=== PATIENT | male | born 1980 | race Caucasian/White ===

== ENCOUNTER → 2016-10-25 | Outpatient (CLI) | payer OTHER ==
[~2016-10-25] MED LIST: ALBINS/ INH; CHN/1 PO; CIPR-255 PO; HYDR-5688 PO; NEOM1SUS21 OTL; PENI-82 PO; PRED20TA2 PO; SERT25TA PO; VNTHFA/IN INH
[2016-10-25 12:29] LABS: URIC ACID 5.2 mg/dl (2.6-7.2)
[2016-10-25 12:43] LABS: ESTIMATED AVERAGE GLUCOSE 123 mg/dl; HA1C FLAG Normal (Normal)
== END | disposition home or self-care (01) ==
LOC: C.LABBFT 10:27
PROVIDERS: ATTEND Internal Medicine
DX: R73.03 Prediabetes (principal); N52.9 Male erectile dysfunction, unspecified; M25.50 Pain in unspecified joint

== ENCOUNTER 2016-12-17 14:46 | Emergency (ER) | payer OTHER ==
[~2016-12-17] VITALS: Ht 175.3 cm; Wt 180.0 kg
[~2016-12-17 14:46] MED LIST changes: -ALBINS/ INH; -HYDR-5688 PO; -PENI-82 PO; -PRED20TA2 PO; -VNTHFA/IN INH
[2016-12-17 14:49] VITALS: TEMP 36.3; Ht 175.3 cm; Wt 180.0 kg
[2016-12-17] MEDS ORDERED: METHYLPREDNISOLONE 125 MG VIAL IV STA (14:57)
[2016-12-17] MEDS ORDERED: ALBUT/IPRATROP 3MG/0.5MG NEB 3 ML VIAL INH ONE (15:00)
[2016-12-17] MEDS ORDERED: ALBINS/ INH (15:08)
[2016-12-17 15:18] VITALS: PULSE 102; O2SAT 96
[2016-12-17 15:54] LABS: BASO % 0.2 %; BASO ABS # 0.03 K/uL (0-0.2); COMPLETE YES; EOS % 5.8 %; HEMATOCRIT 47.3 % (42-52); IG% 0.5 %; LYMPH % 19.5 %; LYMPH ABS # 2.38 K/uL (1.2-3.4); MEAN CELL VOLUME 93.3 fL (80-100); MEAN CORPUSCULAR HEMOGLOBIN 30.6 pg (25-34); MEAN CORPUSCULAR HGB CONC 32.8 g/dl (32-36); MEAN PLATELET VOLUME 10.7 fL (7.4-10.4); MONO % 8.2 %; NEUT % 65.8 %; PLATELET COUNT 235 K/uL (130-400); RED BLOOD COUNT 5.07 M/uL (4.7-6.1); WHITE BLOOD COUNT 12.18 K/uL (4.8-10.8)
[2016-12-17 16:05] LABS: PARTIAL THROMBOPLASTIN RATIO 1.1; PROTHROMBIN TIME (PATIENT) 10.7 SECONDS (9.0-12.0)
[2016-12-17 16:18] LABS: BUN/CREATININE RATIO 17.2 (10-20); CALCIUM 9.6 mg/dl (8.5-10.1); CREATININE 0.92 mg/dl (0.60-1.40)
--- NOTE | 2016-12-17 16:39 | DIAGNOSTIC IMAGING REPORT ---
CHEST 2 VIEWS ROUTINE CLINICAL HISTORY: sob dyspnea COMPARISON STUDY: 10/28/2015 FINDINGS: The bones soft tissues and hemidiaphragms are normal. The cardiomediastinal silhouette is normal. The lungs are clear. The pulmonary vasculature is normal. IMPRESSION: Negative chest. Electronically signed by: Tae Godfrey M.D. 12/17/2016 4:38 PM Dictated Date/Time: 12/17/2016 4:37 PM
[2016-12-17 16:46] VITALS: BP 152/71; PULSE 87; O2SAT 97
[2016-12-17] MEDS ORDERED: VNTHFA/IN INH (17:13)
[2016-12-17] MEDS ORDERED: PRED20TA2 PO (17:13)
--- NOTE | 2016-12-17 17:13 | EMERGENCY ROOM VISIT NOTE ---
History First contact with patient: 14:53 Chief Complaint: RESPIRATORY PROBLEMS Stated Complaint: DIFFICULTY BREATHING History of Present Illness The patient is a 36 year old male who presents to the Emergency Room with complaints of shortness of breath. The patient states that he is always short of breath but has increased shortness breath over the past 2 days. The patient states it is at rest as well as with exercise. The patient denies any associated chest pain, arm pain or jaw pain. The patient denies any diaphoresis , nausea or vomiting. The patient does have a history of asthma in the past but currently does not have any inhalers. He also has a history of seasonal allergies which she states he has been using Flonase without any relief of head congestion. The patient is a smoker. The patient denies any recent travel or surgery. The patient denies any recent leg pain. Review of Systems 10 system review was performed and was negative unless stated otherwise history of present illness. Past Medical/Surgical History Medical Problems: (1) Arm paresthesia, right (2) Asthma, Unspecified (3) Dizziness (4) Lumbar strain (5) Palpitations (6) Radiculopathy (7) Scalp cyst (8) Vertigo Social History Smoking Status: Current Every Day Smoker Marital Status: in relationship Occupation Status: employed Current/Historical Medications Scheduled PRN Albuterol Sulf (Proventil 0.083% 2.5MG/3ML), 2.5 MG INH QID PRN for SOB/Wheezing Allergies Coded Allergies: No Known Allergies (Unverified , 03/31/16) Physical Exam Vital Signs Date Time Temp Pulse Resp B/P Pulse Ox O2 Delivery O2 Flow Rate FiO2 12/17/16 16:46 87 16 152/71 97 Room Air 12/17/16 15:18 102 18 96 Room Air 12/17/16 15:17 99 Room Air 12/17/16 14:49 36.3 98 20 154/100 95 Room Air Physical Exam PHYSICAL EXAM: Vital Signs were reviewed: Temperature 36.6, blood pressure 154/ 100, pulse 98, respiratory rate 20 Reviewed Nurse's notes and agree. Oxygen saturation is 95 % on room air which is normal . GENERAL: Morbidly obese 36- year-old white male appears in mild respiratory distress. MENTAL STATUS: Alert, oriented, coherent. EARS: Canals clear. TMs good light reflex, no erythema or fluid level noted. NOSE: Nasal mucosa with moderate erythema engorgement. PHARYNX: Moderate erythema, no edema noted. No exudate noted. Airway is adequate. NECK: Supple, non-tender. No lymphadenopathy noted. LUNGS: Patient has poor ordered. An air exchange bilaterally with both inspiratory and expiratory wheezing. No rales or rhonchi noted. CARDIAC: Tachycardia, normal rhythm without murmur. LOWER EXTREMITIES: No cyanosis or edema noted. Calves are nontender. SKIN: No rashes noted. Medical Decision & Procedures ER Provider Diagnostic Interpretation: CHEST 2 VIEWS ROUTINE CLINICAL HISTORY: sob dyspnea COMPARISON STUDY: 10/28/2015 FINDINGS: The bones soft tissues and hemidiaphragms are normal. The cardiomediastinal silhouette is normal. The lungs are clear. The pulmonary vasculature is normal. IMPRESSION: Negative chest. Electronically signed by: Tae Godfrey M.D. 12/17/2016 4:38 PM Laboratory Results 12/17/16 15:40 Red Blood Count 5.07, Mean Corpuscular Volume 93.3, Mean Corpuscular Hemoglobin 30.6, Mean Corpuscular Hemoglobin Concent 32.8, Mean Platelet Volume 10.7, Neutrophils (%) (Auto) 65.8, Lymphocytes (%) (Auto) 19.5, Monocytes (%) (Auto) 8.2, Eosinophils (%) (Auto) 5.8, Basophils (%) (Auto) 0.2, Neutrophils # (Auto) 8.00, Lymphocytes # (Auto) 2.38, Monocytes # (Auto) 1.00, Eosinophils # (Auto) 0.71, Basophils # (Auto) 0.03 12/17/16 15:40 Test 12/17/16 15:40 12/17/16 15:46 White Blood Count 12.18 K/uL (4.8-10.8) Red Blood Count 5.07 M/uL (4.7-6.1) Hemoglobin 15.5 g/dL (14.0-18.0) Hematocrit 47.3 % (42-52) Mean Corpuscular Volume 93.3 fL (80-100) Mean Corpuscular Hemoglobin 30.6 pg (25-34) Mean Corpuscular Hemoglobin Concent 32.8 g/dl (32-36) Platelet Count 235 K/uL (130-400) Mean Platelet Volume 10.7 fL (7.4-10.4) Neutrophils (%) (Auto) 65.8 % Lymphocytes (%) (Auto) 19.5 % Monocytes (%) (Auto) 8.2 % Eosinophils (%) (Auto) 5.8 % Basophils (%) (Auto) 0.2 % Neutrophils # (Auto) 8.00 K/uL (1.4-6.5) Lymphocytes # (Auto) 2.38 K/uL (1.2-3.4) Monocytes # (Auto) 1.00 K/uL (0.11-0.59) Eosinophils # (Auto) 0.71 K/uL (0-0.5) Basophils # (Auto) 0.03 K/uL (0-0.2) RDW Standard Deviation 48.4 fL (36.4-46.3) RDW Coefficient of Variation 14.4 % (11.5-14.5) Immature Granulocyte % (Auto) 0.5 % Immature Granulocyte # (Auto) 0.06 K/uL (0.00-0.02) Prothrombin Time 10.7 SECONDS (9.0-12.0) Prothromb Time International Ratio 1.0 (0.9-1.1) Activated Partial Thromboplast Time 29.0 SECONDS (21.0-31.0) Partial Thromboplastin Ratio 1.1 Anion Gap 6.0 mmol/L (3-11) Est Creatinine Clear Calc Drug Dose 177.9 ml/min Estimated GFR () 122.7 Estimated GFR (Non- 105.9 BUN/Creatinine Ratio 17.2 (10-20) Calcium Level 9.6 mg/dl (8.5-10.1) Bedside D-Dimer 334 ng/mlFEU (0-450) Medications Administered Medications (Trade) Dose Ordered Sig/Shi Route Start Time Stop Time Status Last Admin Dose Admin Albuterol/ Ipratropium (Duoneb) 12 ml ONE ONCE INH 12/17/16 15:00 12/17/16 15:01 DC 12/17/16 15:18 12 ML Methylprednisolone Sodium Succinate (Solu-Medrol IV) 125 mg NOW STAT IV 12/17/16 14:57 12/17/16 14:59 DC 12/17/16 15:51 125 MG ED Course The patient was evaluated. The patient's EMR and medication list were reviewed. IV access was obtained. CBC and differential, coags, renal profile, pointing care d-dimer was ordered. Chest x-ray was ordered and interpreted by the radiologist and myself as above without any acute findings. The patient was given Solu-Medrol 125 mg IV. One hour DuoNeb was given to the patient. Labs are reviewed and were unremarkable. D-dimer was within normal limits. The patient was reevaluated and did not appear in any respiratory distress. On reexamination there was no wheezing noted bilaterally. Good air exchange bilaterally. The patient was discharged home in stable condition. Medical Decision Differential diagnosis include pneumonia, asthma exacerbation, URI, anxiety, PE Impression Primary Impression: Asthma exacerbation Departure Information Dispostion Home / Self-Care Condition GOOD Prescriptions Prednisone (Prednisone Tab) 20 Mg Tab 3 TAB PO DAILY for 3 Days, #9 TAB FOR 4 DAYS Prov: Kia Godfrey PA-C 12/17/16 Albuterol Hfa (VENTOLIN HFA) 200 Puffs/83987 Mcg Aers 2 PUFFS INH QID, #1 INHALER Prov: Kia Godfrey PA-C 12/17/16 Referrals Jamarcus Cramer M.D. (PCP) Forms HOME CARE DOCUMENTATION FORM, IMPORTANT VISIT INFORMATION, WORK / SCHOOL INSTRUCTIONS Patient Instructions Asthma - [facility], [facility] Additional Instructions Use either the Ventolin inhaler or your nebulizer every 4 hours as needed for chest tightness. Take prednisone daily as prescribed. Follow-up with Dr. Cramer in 2 days or reevaluation. If symptoms worsen in the interim, return to ER.
== END 2016-12-17 17:18 | disposition home or self-care (01) ==
LOC: C.EDB 14:47 → C.EDC 17:18
DX: J45.901 Unspecified asthma with (acute) exacerbation (principal); J30.2 Other seasonal allergic rhinitis; F17.200 Nicotine dependence, unspecified, uncomplicated

== ENCOUNTER → 2016-12-22 | Outpatient (CLI) | payer OTHER ==
[~2016-12-22] MED LIST changes: +ALBINS/ INH; -CHN/1 PO; -CIPR-255 PO; +HYDR-5688 PO; -NEOM1SUS21 OTL; +PENI-82 PO; -SERT25TA PO; +VNTHFA/IN INH
[2016-12-22 11:22] LABS: HEMATOCRIT 43.8 % (42-52); MEAN CELL VOLUME 93.8 fL (80-100); MEAN CORPUSCULAR HEMOGLOBIN 31.9 pg (25-34); MEAN PLATELET VOLUME 11.3 fL (7.4-10.4); PLATELET COUNT 181 K/uL (130-400); RED BLOOD COUNT 4.67 M/uL (4.7-6.1); WHITE BLOOD COUNT 8.14 K/uL (4.8-10.8)
[2016-12-22 11:57] LABS: ALT/SGPT 45 U/L (12-78); AST/SGOT 20 U/L (15-37); BLOOD UREA NITROGEN 13 mg/dl (7-18); BUN/CREATININE RATIO 16.4 (10-20); CARBON DIOXIDE 29 mmol/L (21-32); CHLORIDE 110 mmol/L (98-107); CREATININE 0.77 mg/dl (0.60-1.40); GLUCOSE 93 mg/dl (70-99); POTASSIUM 3.9 mmol/L (3.5-5.1); SODIUM 145 mmol/L (136-145); TRIGLYCERIDES 180 mg/dl (0-150); VERY LOW DENSITY LIPOPROT CALC 36 mg/dl
[2016-12-22 12:04] LABS: ALB/GLOB RATIO 1.1 (0.9-2); ALKALINE PHOSPHATASE 104 U/L (45-117); CHOLESTEROL 133 mg/dl (0-200); CHOLESTEROL/HDL RATIO 2.3; HDL CHOLESTEROL 59 mg/dl; LDL CHOLESTEROL CALCULATED 38 mg/dl
[2016-12-22 12:05] LABS: PROLACTIN 8.77 ng/mL
== END | disposition home or self-care (01) ==
LOC: C.LAB 10:42
PROVIDERS: ATTEND Internal Medicine Endocrinology, Diabetes & Metabolism
DX: E66.01 Morbid (severe) obesity due to excess calories (principal); R53.83 Other fatigue; N52.9 Male erectile dysfunction, unspecified; E29.1 Testicular hypofunction; R73.03 Prediabetes

== ENCOUNTER 2017-01-14 10:26 | Emergency (ER) | payer OTHER ==
[~2017-01-14] VITALS: Ht 175.3 cm; Wt 178.9 kg
[~2017-01-14 10:26] MED LIST changes: -HYDR-5688 PO; -PENI-82 PO
[2017-01-14 10:36] VITALS: BP 184/84; PULSE 100; TEMP 37.4; O2SAT 94; Ht 175.3 cm; Wt 178.9 kg
[2017-01-14] MEDS ORDERED: HYDROCODONE/ACETAMOPHEN 5/325MG TAB PO STA (10:52)
[2017-01-14] MEDS ORDERED: PENI-82 PO (10:54)
[2017-01-14] MEDS ORDERED: HYDR-5688 PO (10:54)
--- NOTE | 2017-01-14 10:58 | EMERGENCY ROOM VISIT NOTE ---
ED Visit Note First contact with patient: 10:39 CHIEF COMPLAINT: "Lower left jaw pain/metallic taste in mouth". HISTORY OF PRESENT ILLNESS: This 36-year-old male patient presented to the emergency department via private vehicle accompanied by female with left lower jaw/gum line pain that radiates posteriorly in his mouth also to the left posterior upper dentition. There is also associated metallic taste in the mouth. Patient does not know of any injury to the area. He states he noticed yesterday while at rest. No history of tooth problems. He denies any fevers, chills, chest pain, shortness of breath. REVIEW OF SYSTEMS: A 6 system review of systems was completed with positives and pertinent negatives listed in the HPI. ALLERGIES: No known allergies MEDICATIONS: As noted below PMH: Asthma, orchitis SOCIAL HISTORY: Patient lives at home. PHYSICAL EXAM: Vitals are noted on the nurse's note and reviewed by myself. Vital signs stable. Temperature 37.4C orally. GENERAL: 36-year-old male, in no acute distress, nondiaphoretic, well-developed well-nourished. Mouth: The dentition is overall in good repair. There is tenderness to palpation overlying the left inferior gumline along the left jaw extending posteriorly and up into the left upper posterior dentition. This is reproducible with palpation. No drainage noted. The remainder of the pharynx and tonsils are without erythema, edema, or exudate. The airway is patent. There is no facial swelling, cervical or submandibular lymphadenopathy. The patient appears uncomfortable and in pain. The patient has overall fair dental hygiene. EARS: External auditory canals clear, tympanic membranes pearly elliott without erythema or effusion bilaterally. ED COURSE: Patient was seen and evaluated as above. He presents to us today with sudden onset pain near his dentition. This is reproducible with palpation overlying the gumline. I suspect he either has some nerve irritation this area or a tooth infection beginning. I do not suspect DC, or any other emergent process. I do not suspect Sánchez's angina. He is otherwise healthy in nature. He was educated about management of his blood pressure as it was elevated today. He is to follow-up with his family doctor for such findings. He'll be prescribed Pen-Vee K and Fruitland for his pain. He was provided one tablet here. He was educated upon management today's findings, educated upon worrisome symptoms which to return, was provided with dentist's phone numbers any areas of which to follow-up with, and was discharged home in good condition. He certainly is to return with any new/concerning symptoms. In the evaluation and treatment of this patient, the following differential diagnoses were considered: Periapical Abscess, Osteonecrosis of the Jaw, Dental Fracture, Dental Caries, Sánchez's Angina, Vincent's Angina, Facial Cellulitis. In the treatment of this patient controlled medication was utilized and therefore the [facility] [address] [facility], Prescription Drug Monitoring Program website was utilized to look up this patient. No concerns were identified that would prohibit or alter my treatment decision. Problem List Medical Problems: (1) Arm paresthesia, right Status: Resolved (2) Asthma, Unspecified Status: Chronic (3) Dizziness Status: Resolved (4) Lumbar strain Status: Resolved (5) Palpitations Status: Resolved (6) Radiculopathy Status: Chronic (7) Scalp cyst Status: Chronic (8) Vertigo Status: Chronic Current/Historical Medications Scheduled Albuterol Hfa (Ventolin Hfa), 2 PUFFS INH QID Penicillin V Potassium (Veetids), 500 MG PO QID Scheduled PRN Albuterol Sulf (Proventil 0.083% 2.5MG/3ML), 2.5 MG INH QID PRN for SOB/Wheezing Hydrocodone/Acetaminophen 5MG/325MG (Fruitland 5MG/325MG), 1-2 TABLET PO Q6 PRN for Pain Allergies Coded Allergies: No Known Allergies (Unverified , 03/31/16) Vital Signs Date Time Temp Pulse Resp B/P (MAP) Pulse Ox O2 Delivery O2 Flow Rate FiO2 01/14/17 10:36 37.4 100 22 184/84 94 Room Air Medications Administered Medications (Trade) Dose Ordered Sig/Shi Route Start Time Stop Time Status Last Admin Dose Admin Acetaminophen/ Hydrocodone Bitart (Fruitland 5/325 Tab) 1 tab NOW STAT PO 01/14/17 10:52 01/14/17 10:53 DC 01/14/17 11:03 1 TAB Departure Information Impression Primary Impression: Odontalgia Dispostion Home / Self-Care Condition GOOD Prescriptions Penicillin V Potassium (Veetids) 500 Mg Tab 500 MG PO QID, #40 TAB Prov: Jorge Camarena PA-C 01/14/17 Hydrocodone/Acetaminophen 5MG/325MG (Fruitland 5MG/325MG) Tab 1-2 TABLET PO Q6 Y for Pain, #20 TAB For Initial Treatment Prov: Jorge Camarena PA-C 01/14/17 Referrals Jamarcus Cramer M.D. (PCP) Patient Instructions My [facility] Additional Instructions You have been treated in the Emergency Department for Dental Pain. You have received pain medicine in the emergency department which impairs your ability to operate a vehicle. It is illegal for you to drive after receiving these medicines. You have been prescribed NORCO to be used for pain control. This is a narcotic medication. You cannot drive or consume alcohol while on this medicine. This medicine should only be used for pain that cannot be controlled with over-the- counter pain medicines. NO TYLENOL WITH THIS You were prescribed PenVK to be taken every 6 hours for 10 days. This is an antibiotic. All antibiotics have the potential to cause diarrhea. Stop this medication and contact a medical provider if you were to develop any significant adverse side effects including: wheezing, shortness of breath, passing out, vomiting, or a diffuse rash. Always take antibiotics as directed and COMPLETE the ENTIRE course regardless of the improvement of your symptoms. For pain control, you can use the following [id number] medicines (if >12 yo): - Regular strength (325mg/tab) Tylenol (acetaminophen) 2 tabs every 4-6 hours as needed. Do not exceed 12 tablets in a 24 hour period. Avoid taking more than 3 grams (3000 mg) of Tylenol per day. This includes any other sources of acetaminophen you may take on a regular basis. NOT WITH NORCO - Regular strength (200 mg/tab) Advil (ibuprofen) 1-2 tabs every 4-6 hours as needed. Do not exceed a dose of 3200 mg per day. Refrain from smoking cigarettes or using chewing tobacco until you have been evaluated by your dentist. Keeping beverages lukewarm and consuming soft foods can decrease your pain. Warm compresses over the affected area may offer some relief. You MUST seek evaluation of your dental pain by a dentist following your visit to the Emergency Department. The Emergency Department is not capable of treating dental issues long-term. You should call your dentist as soon as possible to make an appointment for evaluation of your dental pain. Return to the emergency department if you develop the following symptoms despite treatment course outlined above: fever, intractable pain, increased redness, swelling, or purulent discharge. Below are 2 doctors that accept Medicare/Medicaid. Dr. Kaylee Cornelius, DMD Oral & Maxillofacial Surgery | [address] [address] [address] Naveen Iverson, DMD [phone] and we are located at [address] [place] [address], [address], [place]. Please return to the emergency department with any new/concerning symptoms. Your blood pressure was elevated today 184/84. Please follow-up with your family doctor.
== END 2017-01-14 11:04 | disposition home or self-care (01) ==
LOC: C.EDB 10:27 → C.EDD 11:04
DX: K08.89 Other specified disorders of teeth and supporting structures (principal); J45.909 Unspecified asthma, uncomplicated; Z87.828 Personal history of other (healed) physical injury and trauma

== ENCOUNTER → 2017-07-16 | Outpatient (CLI) | payer OTHER ==
[~2017-07-16] VITALS: Ht 175.3 cm; Wt 211.7 kg
[~2017-07-16] MED LIST changes: +HYDR-5688 PO; +PENI-82 PO; -VNTHFA/IN INH
[2017-07-16 13:47] VITALS: BP 154/90; PULSE 89; Ht 175.3 cm; Wt 211.7 kg
== END | disposition home or self-care (01) ==
LOC: C.NEUR 12:55
PROVIDERS: ATTEND Internal Medicine Pulmonary Disease
DX: R06.83 Snoring (principal); R06.81 Apnea, not elsewhere classified; E66.01 Morbid (severe) obesity due to excess calories; Z68.44 Body mass index [BMI] 60.0-69.9, adult; R53.83 Other fatigue; F41.9 Anxiety disorder, unspecified; M25.50 Pain in unspecified joint; R51 Headache; R42 Dizziness and giddiness; R06.02 Shortness of breath; F17.210 Nicotine dependence, cigarettes, uncomplicated

== ENCOUNTER 2017-07-18 21:53 | Inpatient (IN) | payer OTHER ==
[~2017-07-18] VITALS: Ht 175.3 cm; Wt 210.1 kg
[~2017-07-18 21:53] MED LIST changes: -HYDR-5688 PO; -PENI-82 PO
[2017-07-18 22:23] LABS: BASO % 0.2 %; BASO ABS # 0.02 K/uL (0-0.2); COMPLETE YES; HEMATOCRIT 43.6 % (42-52); IG% 0.3 %; LYMPH % 22.7 %; LYMPH ABS # 2.42 K/uL (1.2-3.4); MEAN CORPUSCULAR HEMOGLOBIN 31.6 pg (25-34); MEAN CORPUSCULAR HGB CONC 33.9 g/dl (32-36); MEAN PLATELET VOLUME 10.8 fL (7.4-10.4); NEUT % 66.8 %; PLATELET COUNT 226 K/uL (130-400); RED BLOOD COUNT 4.69 M/uL (4.7-6.1); WHITE BLOOD COUNT 10.68 K/uL (4.8-10.8)
[2017-07-18 22:58] LABS: ALKALINE PHOSPHATASE 104 U/L (45-117); ALT/SGPT 48 U/L (12-78); AST/SGOT 30 U/L (15-37); BLOOD UREA NITROGEN 14 mg/dl (7-18); BUN/CREATININE RATIO 14.4 (10-20); CALCIUM 9.2 mg/dl (8.5-10.1); CARBON DIOXIDE 24 mmol/L (21-32); CHLORIDE 106 mmol/L (98-107); CREATININE 0.95 mg/dl (0.60-1.40); GLUCOSE 95 mg/dl (70-99); SODIUM 138 mmol/L (136-145)
--- NOTE | 2017-07-18 23:02 | DIAGNOSTIC IMAGING REPORT ---
CHEST ONE VIEW PORTABLE CLINICAL HISTORY: Chest pain. COMPARISON STUDY: Chest radiograph December 17, 2016. FINDINGS: This exam is significantly compromised due to body habitus. Apparent left lower lung opacity is likely artifactual. There is no evidence of pulmonary edema. Cardiomediastinal silhouette is stable. There is no pneumothorax or definite pleural effusion. IMPRESSION: Study compromised due to body habitus. Apparent left lower lung opacity is likely artifactual however pneumonia could appear similar. Electronically signed by: Nehemiah Abrams M.D. 07/18/2017 11:01 PM Dictated Date/Time: 07/18/2017 10:59 PM
[2017-07-18] MEDS ORDERED: OPTIRAY 320 IV PRN (23:15)
[2017-07-19] MEDS ORDERED: ALUMINUM/MAGNESIUM/SIMETH (MAALOX MAX) 30 ML UDC PO PRN (00:30)
[2017-07-19] MEDS ORDERED: MAGNESIUM HYDROXIDE SUSP 30 ML UDC PO PRN (00:30)
[2017-07-19] MEDS ORDERED: ALBUTEROL 0.083% NEBU SOLN 3 ML VIAL INH PRN (00:30)
[2017-07-19] MEDS ORDERED: ONDANSETRON INJ 2 MG/ML 2 ML VIAL IV PRN (00:30)
[2017-07-19] MEDS ORDERED: NITROGLYCERIN 0.4 MG SL PER TAB CHARGE SL PRN (00:30)
[2017-07-19] MEDS ORDERED: ACETAMINOPHEN 325 MG TAB PO PRN (00:30)
--- NOTE | 2017-07-19 00:32 | History and Physical ---
History & Physical Date & Time of Service: Jul 19, 2017 at 00:22 Chief Complaint: Heart Pounding, Slight Pain In Chest Primary Care Physician: Jamarcus Cramer M.D. History of Present Illness Source: patient Yordan Monsalve is a 37 year old morbidly obese male smoker who presented to the ED with chest pain that began around 2PM today. He reports he felt it intermittently over the next few hours, always in a spot over the L side of his chest, with associated numbness/decreased strength in his left hand. Nothing made the pain better or worse, it would just go away on its own. The pain was also associated with palpitations. The pain was described as sharp, and 6/10 severity. He currently does not have any pain. He reports he has smoked 1/2 pack per day for 15 years. He reports he is ready to quit today after this episode. He drinks about a 20 oz of soda daily. He works at [employer]. In the ED, he was found to have a positive D-Dimer, but CTA was completed and was negative for PE. His troponin was mildly elevated at 0.05. Past Medical/Surgical History Medical Problems: (1) Arm paresthesia, right Status: Resolved (2) Asthma, Unspecified Status: Chronic (3) Dizziness Status: Resolved (4) Lumbar strain Status: Resolved (5) Palpitations Status: Resolved (6) Radiculopathy Status: Chronic (7) Scalp cyst Status: Chronic (8) Vertigo Status: Chronic Family History Father has HTN, no history of DC or stroke. Mother healthy. No other 1st degree relatives with CAD. Social History Smoking Status: Current Every Day Smoker (1/2 ppd x 15 years) Smokeless Tobacco Use: No Alcohol Use: socially Drug Use: none Marital Status: in relationship Housing status: lives with family Occupational Status: employed Multi-Drug Resistant Organisms History of MDRO: No Allergies Coded Allergies: No Known Allergies (Unverified , 07/18/17) Home Medications Scheduled PRN Albuterol Sulf (Proventil 0.083% 2.5MG/3ML), 2.5 MG INH QID PRN for SOB/Wheezing Review of Systems See HPI for pertinent positives & negatives. A total of 10 systems reviewed and were otherwise negative. Physical Exam Vital Signs Date Time Temp Pulse Resp B/P (MAP) Pulse Ox O2 Delivery O2 Flow Rate FiO2 07/18/17 23:44 90 16 132/76 96 Room Air 07/18/17 22:38 96 07/18/17 22:28 98 Room Air 07/18/17 22:27 98 Room Air 07/18/17 22:27 98 Room Air 07/18/17 21:56 36.6 95 18 136/86 94 Room Air General Appearance: WD/WN, no apparent distress, + obese Head: normocephalic, atraumatic Eyes: normal inspection, PERRL ENT: hearing grossly normal Neck: supple, no JVD Respiratory/Chest: lungs clear, normal breath sounds, no respiratory distress Cardiovascular: regular rate, rhythm, no murmur, normal peripheral pulses Abdomen/GI: normal bowel sounds, non tender, soft Back: no CVA tenderness, no muscle spasm Extremities/Musculoskelatal: normal inspection, no calf tenderness, no pedal edema Neurologic/Psych: alert, normal mood/affect, normal reflexes, oriented x 3 Skin: no rash Diagnostics Laboratory Results Results Past 24 Hours Test 07/18/17 22:10 07/18/17 22:22 Range/Units White Blood Count 10.68 4.8-10.8 K/uL Red Blood Count 4.69 4.7-6.1 M/uL Hemoglobin 14.8 14.0-18.0 g/dL Hematocrit 43.6 42-52 % Mean Corpuscular Volume 93.0 80-100 fL Mean Corpuscular Hemoglobin 31.6 25-34 pg Mean Corpuscular Hemoglobin Concent 33.9 32-36 g/dl Platelet Count 226 130-400 K/uL Mean Platelet Volume 10.8 7.4-10.4 fL Neutrophils (%) (Auto) 66.8 % Lymphocytes (%) (Auto) 22.7 % Monocytes (%) (Auto) 8.0 % Eosinophils (%) (Auto) 2.0 % Basophils (%) (Auto) 0.2 % Neutrophils # (Auto) 7.15 1.4-6.5 K/uL Lymphocytes # (Auto) 2.42 1.2-3.4 K/uL Monocytes # (Auto) 0.85 0.11-0.59 K/uL Eosinophils # (Auto) 0.21 0-0.5 K/uL Basophils # (Auto) 0.02 0-0.2 K/uL RDW Standard Deviation 50.1 36.4-46.3 fL RDW Coefficient of Variation 14.8 11.5-14.5 % Immature Granulocyte % (Auto) 0.3 % Immature Granulocyte # (Auto) 0.03 0.00-0.02 K/uL Sodium Level 138 136-145 mmol/L Potassium Level 4.0 3.5-5.1 mmol/L Chloride Level 106 98-107 mmol/L Carbon Dioxide Level 24 21-32 mmol/L Anion Gap 8.0 3-11 mmol/L Blood Urea Nitrogen 14 7-18 mg/dl Creatinine 0.95 0.60-1.40 mg/dl Est Creatinine Clear Calc Drug Dose 179.6 ml/min Estimated GFR () 117.2 Estimated GFR (Non- 101.1 BUN/Creatinine Ratio 14.4 10-20 Random Glucose 95 70-99 mg/dl Calcium Level 9.2 8.5-10.1 mg/dl Magnesium Level 2.0 1.8-2.4 mg/dl Total Bilirubin 0.5 0.2-1 mg/dl Direct Bilirubin 0-0.2 mg/dl Aspartate Amino Transf (AST/SGOT) 30 15-37 U/L Alanine Aminotransferase (ALT/SGPT) 48 12-78 U/L Alkaline Phosphatase 104 45-117 U/L Total Protein 7.7 6.4-8.2 gm/dl Albumin 3.8 3.4-5.0 gm/dl Lipase 106 73-393 U/L Thyroid Stimulating Hormone (TSH) 2.540 0.300-4.500 uIu/ml Chemistry Specimen Hemolysis Bedside D-Dimer > 450 0-450 ng/mlFEU Bedside Troponin I 0.050 0-0.045 ng/ml Diagnostic Radiology CTA: Negative for PE CXR normal EKG Normal sinus rhythm Incomplete right bundle branch block Borderline ECG When compared with ECG of 18-JUL-2017 22:01, (unconfirmed) No significant change was found Impression Assessment and Plan 37 yo M with multiple risk factors - smoking, morbid obesity, prediabetes, male - who presents w/chest pain at 2am, w/normal EKG, troponin 0.05 about 10 hours after initiation of pain. Chest pain w/palpitations - Will trend troponin q6h - At this stage he is chest pain free, if recurs, will provide Nitro, morphine - Continue daily aspirin, will add a low dose beta elizabeth tomorrow - Will check lipids tomorrow AM - Discussed smoking cessation - reports he is ready today, as his fiancee was very unhappy about this situation - Cardiac monitoring Prediabetes - A1c 5.9% in 10/2016, will recheck tomorrow Asthma - Continue Albuterol PRN Morbid obesity - Would recommend outpatient referral to weight loss management if pt agrees VTE: Heparin SQ - will change to heparin drip if troponin increases Code status: Full Dispo: Tele Resident Physician Supervision Note: Pt evaluated independently. I discussed the case with the resident and agree with the findings and plan as documented in the note. Any exceptions or clarifications are listed here: 37 y/o M - morbidly obese smoker with metabolic syndrome, presenting with central CP - a marginal troponin elevation is present. OE AAO x 3 S1,2 R CTA ND, ND NO CC P: Pt is high risk and will be fully anticoagulated - ASA, statin and Bblocker to be provided. We will consult cardiology. He is assigned to telemetry - additional trop is pending Documented By: Jesus Tabor VTE Prophylaxis VTE Risk Assessment Done? Y/N: Yes Risk Level: Moderate Resident Tracking Resident Involvement: Resident Care Provided Care Provided: Adult Hospital Medicine
[2017-07-19 01:06] VITALS: BP 159/82; PULSE 83; TEMP 36.8; O2SAT 97; Ht 175.3 cm; Wt 210.1 kg
[2017-07-19 04:24] LABS: PROTHROMBIN TIME (PATIENT) 10.4 SECONDS (9.0-12.0)
[2017-07-19] MEDS ORDERED: HEPARIN 25,000 UNIT/500ML D5W 500 ML IV PRN (05:15)
--- NOTE | 2017-07-19 05:29 | EMERGENCY ROOM VISIT NOTE ---
History First contact with patient: 22:07 Chief Complaint: CARDIAC ASSESSMENT Stated Complaint: CHEST PAIN, PALPITATIONS Nursing Triage Summary: Pt states that around 1400 his heart started to race. Pt said that he started to have mid sternal stabbing chest pain that is intermittent. Pt also complains of numbness to right arm. Pt states that nothing makes the pain better. Pt denies any SOB, nausea, diaphoresis. Lungs are clear bilaterally thru bases. Pulse ox 98% RA History of Present Illness The patient is a 37 year old male who presents to the Emergency Room with complaints of chest pain with palpitations since 2 PM. Patient states occasionally he'll get numbness and tingling down the left arm. Chest pain last for about 5 minutes. Has happened a few times throughout the day. Occasional palpitations. No recent stress test or echo. No family history of heart disease. No prior heart disease. Patient denies dyspnea, abdominal pain , leg pain, recent travel. He does smoke half pack a day. No excessive caffeine or alcohol. Review of Systems See HPI for pertinent positives & negatives. A total of 10 systems reviewed and were otherwise negative. Past Medical/Surgical History Medical Problems: (1) Arm paresthesia, right (2) Asthma, Unspecified (3) Chest pain (4) Dizziness (5) Lumbar strain (6) Palpitations (7) Palpitations (8) Radiculopathy (9) Scalp cyst (10) Vertigo Social History Smoking Status: Current Every Day Smoker Smokeless Tobacco Use: No Drug Use: none Marital Status: in relationship Occupation Status: employed Current/Historical Medications Scheduled PRN Albuterol Sulf (Proventil 0.083% 2.5MG/3ML), 2.5 MG INH QID PRN for SOB/Wheezing Physical Exam Vital Signs Date Time Temp Pulse Resp B/P (MAP) Pulse Ox O2 Delivery O2 Flow Rate FiO2 07/18/17 23:44 90 16 132/76 96 Room Air 07/18/17 22:38 96 07/18/17 22:28 98 Room Air 07/18/17 22:27 98 Room Air 07/18/17 22:27 98 Room Air 07/18/17 21:56 36.6 95 18 136/86 94 Room Air Physical Exam VITALS: Vitals are noted on the nurse's note and reviewed by myself. Vital signs stable. GENERAL: Pleasant male, in no acute distress, nondiaphoretic, well-developed well-nourished. SKIN: The skin was without rashes, erythema, edema, or bruising. There is no tenting of the skin. Capillary reflex less than 2 seconds. HEAD: Normocephalic atraumatic. EARS: External auditory canals clear, tympanic membranes pearly elliott without erythema or effusion bilaterally. EYES: Pupils equal round and reactive to light and accommodation. Conjunctivae without injection, sclerae without icterus. Extraocular movements intact. NOSE: Patent, turbinates without inflammation or discharge. MOUTH: Mucous membranes moist. Pharynx without erythema or exudate. Uvula midline. Airway patent. Tongue does not deviate. NECK: Supple without nuchal rigidity. No lymphadenopathy. No thyromegaly. Cervical spine is nontender. No JVD. HEART: Regular rate and rhythm without murmurs gallops or rubs. Chest nontender to palpation LUNGS: Clear to auscultation bilaterally without wheezes, rales or rhonchi. No dullness to percussion. No retractions or accessory muscle use. ABDOMEN: Positive bowel sounds x 4. Normal tympanic percussion. Soft, protuberant, obese, nontender, without masses or organomegaly. King sign negative. No guarding or rebound tenderness. MUSCULOSKELETAL: No muscle atrophy, erythema, noted. +1 Pitting edema up to the mid tib-fib bilaterally NEURO: Patient was alert and oriented to person place and time. Normal sensation to light and sharp touch. No focal neurological deficits. Medical Decision & Procedures Laboratory Results 07/18/17 22:10 Test 07/18/17 22:10 07/18/17 22:22 RDW Standard Deviation 50.1 fL (36.4-46.3) RDW Coefficient of Variation 14.8 % (11.5-14.5) White Blood Count 10.68 K/uL (4.8-10.8) Red Blood Count 4.69 M/uL (4.7-6.1) Hemoglobin 14.8 g/dL (14.0-18.0) Hematocrit 43.6 % (42-52) Mean Corpuscular Volume 93.0 fL (80-100) Mean Corpuscular Hemoglobin 31.6 pg (25-34) Mean Corpuscular Hemoglobin Concent 33.9 g/dl (32-36) Platelet Count 226 K/uL (130-400) Mean Platelet Volume 10.8 fL (7.4-10.4) Neutrophils (%) (Auto) 66.8 % Lymphocytes (%) (Auto) 22.7 % Monocytes (%) (Auto) 8.0 % Eosinophils (%) (Auto) 2.0 % Basophils (%) (Auto) 0.2 % Neutrophils # (Auto) 7.15 K/uL (1.4-6.5) Lymphocytes # (Auto) 2.42 K/uL (1.2-3.4) Monocytes # (Auto) 0.85 K/uL (0.11-0.59) Eosinophils # (Auto) 0.21 K/uL (0-0.5) Basophils # (Auto) 0.02 K/uL (0-0.2) Immature Granulocyte % (Auto) 0.3 % Immature Granulocyte # (Auto) 0.03 K/uL (0.00-0.02) Anion Gap 8.0 mmol/L (3-11) Est Creatinine Clear Calc Drug Dose 179.6 ml/min Estimated GFR () 117.2 Estimated GFR (Non- 101.1 BUN/Creatinine Ratio 14.4 (10-20) Calcium Level 9.2 mg/dl (8.5-10.1) Magnesium Level 2.0 mg/dl (1.8-2.4) Total Bilirubin 0.5 mg/dl (0.2-1) Direct Bilirubin mg/dl (0-0.2) Aspartate Amino Transf (AST/SGOT) 30 U/L (15-37) Alanine Aminotransferase (ALT/SGPT) 48 U/L (12-78) Alkaline Phosphatase 104 U/L (45-117) Total Protein 7.7 gm/dl (6.4-8.2) Albumin 3.8 gm/dl (3.4-5.0) Lipase 106 U/L (73-393) Thyroid Stimulating Hormone (TSH) 2.540 uIu/ml (0.300-4.500) Chemistry Specimen Hemolysis Bedside D-Dimer > 450 ng/mlFEU (0-450) Bedside Troponin I 0.050 ng/ml (0-0.045) ED Course Prior records/ancillary studies reviewed. Triage Nursing notes reviewed. The patient's history was concerning for chest pain. Differential diagnosis: Etiologies such as cardiac ischemia, aortic dissection, pulmonary embolism, pneumonia, pneumothorax, musculoskeletal, infections, pericarditis, myocarditis , esophageal rupture, gastrointestinal, as well as others were entertained. Physical examination: As above. ER treatment provided: Patient was observed On reassessment the patient felt better. Diagnostic interpretation by me: The electrocardiogram was negative for pathologic change. Normal sinus, incomplete right bundle branch block, no acute ST-T wave changes. Impression normal sinus rhythm with incomplete right bundle branch block interpreted by myself. Repeat EKG is unchanged. The labs revealed elevated troponin. Elevated d-dimer. Imaging studies: Chest x-ray with no acute consolidation, pneumothorax or free air per my interpretation CTA was negative for PE per stat radiology Consultation: A consultation was placed with the hospitalist, Dr Tabor. The case was discussed and diagnostics were reviewed. The patient was evaluated in the ER for further treatment. Exam and history seem consistent with chest pain with concerns for cardiac in etiology as troponin is slightly elevated and patient has risk factors for heart disease. He will be evaluated by medicine. CTA was negative for PE or dissection. First troponin is marginally elevated. No acute findings on EKG. Patient was agreeable to treatment plan of admission.By the evaluation outlined above emergent etiologies such as aortic dissection, pulmonary embolism, pneumonia, pneumothorax, infections, pericarditis, myocarditis, gastrointestinal , as well as others were deemed relatively unlikely. The pt informed about the findings as listed above. All questions were answered and pleased with the treatment. Case reviewed with my attending Medical Decision As above Medication Reconcilliation Current Medication List: was personally reviewed by me Blood Pressure Screening Patient's blood pressure: Normal blood pressure Impression Primary Impression: Precordial chest pain Additional Impressions: Elevated troponin Palpitations Departure Information Dispostion Still a Patient Condition FAIR Referrals Jamarcus Cramer M.D. (PCP) Forms IMPORTANT VISIT INFORMATION Patient Instructions My [facility] Problem Qualifiers
[2017-07-19 05:45] LABS: BASO % 0.2 %; BASO ABS # 0.02 K/uL (0-0.2); EOS % 3.9 %; HEMATOCRIT 41.4 % (42-52); IG% 0.4 %; LYMPH % 25.3 %; MEAN CELL VOLUME 93.7 fL (80-100); MEAN CORPUSCULAR HEMOGLOBIN 30.8 pg (25-34); MEAN PLATELET VOLUME 10.4 fL (7.4-10.4); MONO % 11.3 %; NEUT % 58.9 %; PLATELET COUNT 200 K/uL (130-400); RED BLOOD COUNT 4.42 M/uL (4.7-6.1); WHITE BLOOD COUNT 8.31 K/uL (4.8-10.8)
[2017-07-19 05:56] LABS: PARTIAL THROMBOPLASTIN RATIO 1.1; PROTHROMBIN TIME (PATIENT) 10.5 SECONDS (9.0-12.0)
[2017-07-19 05:58] LABS: COMPLETE YES; MEAN CORPUSCULAR HGB CONC 32.9 g/dl (32-36)
[2017-07-19] MEDS ORDERED: HEPARIN SOD 5000 UNIT/0.5 ML CARP SQ SCH (06:00)
--- NOTE | 2017-07-19 06:36 | DIAGNOSTIC IMAGING REPORT ---
(CHEST FOR PE) ANGIO WITH CT DOSE: 1026.72 mGy.cm HISTORY: Chest pain dyspnea TECHNIQUE: Multiaxial CT images of the chest were performed following the intravenous administration of contrast to evaluate the pulmonary arteries. Maximal intensity projection images were also obtained. A dose lowering technique was utilized adhering to the principles of ALARA. COMPARISON STUDY: None. FINDINGS: There is a normal caliber thoracic aorta with no evidence for dissection. There is no evidence for pulmonary embolus. No pleural effusions. No pneumothorax. The liver and spleen are unremarkable. No mediastinal or hilar lymphadenopathy. The central airways are patent. The lungs are clear. Sella, mild exam due to body habitus considerations IMPRESSION: No evidence for pulmonary embolus. Lungs are clear. The above report was generated using voice recognition software. It may contain grammatical, syntax or spelling errors. Electronically signed by: Tae Godfrey M.D. 07/19/2017 6:35 AM Dictated Date/Time: 07/19/2017 6:33 AM
[2017-07-19 08:00] VITALS: BP 123/83; PULSE 75; TEMP 36.9; O2SAT 97
[2017-07-19] MEDS ORDERED: INFLUENZA ADMINISTRATION CHARGE ONE (08:00)
[2017-07-19] MEDS ORDERED: INFLUENZA VIRUS QUAD VACCINE 0.5 ML SYR IM. ONE (08:00)
[2017-07-19] MEDS ORDERED: METOPROLOL TARTRATE 25 MG TAB PO SCH ×2 (09:00)
[2017-07-19] MEDS ORDERED: ATORVASTATIN 40 MG TAB PO SCH (09:00)
[2017-07-19] MEDS ORDERED: ASPIRIN/ALUM/MAGNES/CAL CARB 325 MG TAB PO SCH (09:00)
[2017-07-19] MEDS ORDERED: METOPROLOL TARTRATE 1 MG/ML VIAL ONE (12:27)
[2017-07-19] MEDS ORDERED: DOBUTamine HCL 12.5 MG/ML 20 ML VIAL ONE (12:27)
[2017-07-19] MEDS ORDERED: ATROPINE SULFATE 0.1 MG/ML 5ML SYR ONE ×2 (12:28→12:52)
[2017-07-19 14:00] VITALS: BP 128/72; PULSE 77
[2017-07-19] MEDS ORDERED: PERFLUTREN LIPID MICROSPHERE (DEFINITY) IV ONE (14:03)
[2017-07-19 14:10] LABS: PARTIAL THROMBOPLASTIN RATIO 1.3
[2017-07-19 14:21] VITALS: BP 128/72; PULSE 77; TEMP 36.9; O2SAT 97
[2017-07-19] MEDS ORDERED: LPR25 PO (14:23)
[2017-07-19] MEDS ORDERED: VARE1PAK15 PO (14:23)
[2017-07-19] MEDS ORDERED: LPT40 PO (14:23)
[2017-07-19] MEDS ORDERED: NURSING VERBAL MED ORDER ONE (14:30)
--- NOTE | 2017-07-19 14:31 | Discharge Instructions ---
Discharge Instructions Date of Service Jul 19, 2017. Admission Reason for Admission: Chest Pain, Palpitations Discharge Discharge Diagnosis / Problem: Chest pain Discharge Goals Goal(s): Decrease discomfort, Improve function, Increase independence, Improve disease control Activity Recommendations Activity Limitations: resume your previous activity Lifting Limitations: none Exercise/Sports Limitations: none May Resume Sexual Activity: when tolerated Shower/Bathe: no limitations Driving or Machine Use: no limitations . Instructions / Follow-Up Instructions / Follow-Up You were admitted to [facility] with chest pain and diagnosed with non cardiac related chest pain. During your stay here you were treated with intravenous heparin, supportive care , cardiac enzymes were trended and were minimally elevated so a stress dobutamine test was done. You were unable to meet the target Heart rate, therefore you will need to have close follow up. An appointment has been requested for you within the next week. Please try to eat more fresh fruits and vegetables, and exercise to help lose weight. You should exercise for 25 minutes every day. Medications: You have been given a prescription for metoprolol tartrate and a cholesterol medication. Chantix has been prescribed to you to help with smoking cessation. - If you experience and feelings of suicidal or homicidal thoughts, stop taking the medication and come directly to the ER. Appointments: Follow up with your Primary Care Provider within 1 week. Follow up with cardiology within 1 week. Current Hospital Diet Patient's current hospital diet: AHA Diet (Heart Healthy) Discharge Diet Recommended Diet: AHA Diet (Heart Healthy) Pending Studies Studies pending at discharge: no Medical Emergencies . Who to Call and When: Medical Emergencies: If at any time you feel your situation is an emergency, please call 911 immediately. . Non-Emergent Contact Non-Emergency issues call your: Primary Care Provider Call Non-Emergent contact if: you have a fever, your pain is not controlled, your pain is worsening, your pain is unusual for you, your pain is concerning you, you have any medication questions . Past History Medical & Surgical History: (1) Chest pain (2) Elevated troponin . "Provider Documentation" section prepared by Asia Hamilton. . VTE Core Measure Inpt VTE Proph given/why not?: Other Anticoagulation
--- NOTE | 2017-07-19 14:58 | Discharge Summary ---
Discharge Summary Date of Service Jul 19, 2017. Discharge Summary Admission Date: Jul 19, 2017 at 00:21 Discharge Date: Jul 19, 2017 Discharge Disposition: Home Principal Diagnosis: Chest pain, noncardiac Problems/Secondary Diagnoses: (1) Asthma, Unspecified Status: Chronic (2) Radiculopathy Status: Chronic (3) Scalp cyst Status: Chronic (4) Vertigo Status: Chronic Morbid obesity, BMI 68 Chest pain Procedures: CHEST ONE VIEW PORTABLE 07/18/17 IMPRESSION: Study compromised due to body habitus. Apparent left lower lung opacity is likely artifactual however pneumonia could appear similar. (CHEST FOR PE) ANGIO WITH 07/19/17 FINDINGS: There is a normal caliber thoracic aorta with no evidence for dissection. There is no evidence for pulmonary embolus. No pleural effusions. No pneumothorax. The liver and spleen are unremarkable. No mediastinal or hilar lymphadenopathy. The central airways are patent. The lungs are clear. Sella, mild exam due to body habitus considerations IMPRESSION: No evidence for pulmonary embolus. Lungs are clear. Consultations: None Medication Reconciliation New Medications: Varenicline Tartrate (Chantix Starting Month Pa) 1 Chapincito Chapincito 0.5 MG PO UD for 28 Days, #1 PKT Atorvastatin (Atorvastatin Calcium) 40 Mg Tab 40 MG PO QAM for 30 Days, #30 TAB Metoprolol Tartrate (Lopressor) 25 Mg Tab 12.5 MG PO BID for 30 Days, #30 TAB Continued Medications: Albuterol Sulf (Proventil 0.083% 2.5MG/3ML) 2.5 Mg/3 Ml Nebu 2.5 MG INH QID PRN for SOB/Wheezing Discharge Exam The patient was seen and examined this morning. Pt reports doing ok, he is tired and says he keeps trying to sleep and isn't able to. He denies any recurrence of chest pain since midnight last night, which was substernal and lasted under 1 minute, then subsided. He has not really been up and walking today due to fatigue. He denies any shortness of breath, HOFF, flutter, palpitation, abd pain, n/v/d/c. ROS: 6 point ROS reviewed and negative. Physical Exam: General Appearance: WD/WN, no apparent distress, + obese (morbidly) Eyes: PERRL, EOMI ENT: hearing grossly normal, pharynx normal Neck: supple, no JVD Respiratory/Chest: lungs clear, no respiratory distress, no accessory muscle use Cardiovascular: regular rate, rhythm, no murmur, normal peripheral pulses Abdomen / GI: normal bowel sounds, non tender, soft Extremities: no calf tenderness, no pedal edema Neurologic/Psychiatric: alert Skin: normal color, warm/dry Hospital Course History of Present Illness Source: patient Yordan Monsalve is a 37 year old morbidly obese male smoker who presented to the ED with chest pain that began around 2PM today. He reports he felt it intermittently over the next few hours, always in a spot over the L side of his chest, with associated numbness/decreased strength in his left hand. Nothing made the pain better or worse, it would just go away on its own. The pain was also associated with palpitations. The pain was described as sharp, and 6/10 severity. He currently does not have any pain. He reports he has smoked 1/2 pack per day for 15 years. He reports he is ready to quit today after this episode. He drinks about a 20 oz of soda daily. He works at [employer]. In the ED, he was found to have a positive D-Dimer, but CTA was completed and was negative for PE. His troponin was mildly elevated at 0.05. Physical Exam General Appearance: WD/WN, no apparent distress, + obese Head: normocephalic, atraumatic Eyes: normal inspection, PERRL ENT: hearing grossly normal Neck: supple, no JVD Respiratory/Chest: lungs clear, normal breath sounds, no respiratory distress Cardiovascular: regular rate, rhythm, no murmur, normal peripheral pulses Abdomen/GI: normal bowel sounds, non tender, soft Back: no CVA tenderness, no muscle spasm Extremities/Musculoskelatal: normal inspection, no calf tenderness, no pedal edema Neurologic/Psych: alert, normal mood/affect, normal reflexes, oriented x 3 Skin: no rash Hospital Course: 37 yo M with multiple risk factors - smoking, morbid obesity, prediabetes, male - who presents w/chest pain at 2am, w/normal EKG, troponin 0.05 about 10 hours after initiation of pain. Troponins x 2 were trended and negative. The patient underwent Dobutamine stress testing due to weight surpassing treadmill capacity (450lbs). Pt was unable to reach the target HR. Therefore close follow up has been arranged with the cardiology department within 1 week. Chest pain w/palpitations - Troponin x 2 neg. - At this stage he is chest pain free, if recurs, will provide Nitro, morphine - Continue daily aspirin, will add a low dose beta elizabeth tomorrow - continue upon discharge - Pt was started on statin therapy - Discussed smoking cessation - Prescription for chantix was provided to the patient. He has tried this in the past and worked somewhat for him. - Cardiac monitoring negative. - Dobutamine stress test completed but pt did not meet max HR - Follow up with cards within 1 week. Prediabetes - A1c 5.9% in 10/2016, follow up with PCP at f/u appt within 1-2 weeks. Asthma - Continue Albuterol PRN Morbid obesity - Would recommend outpatient referral to weight loss management if pt agrees VTE: Heparin SQ - Code status: Full Dispo: discharge to home today PA Physician Supervision Note: I Discussed the patine with Saba Hamilton PAC and agree with findings and plan as documented in the note. Any exceptions or clarifications are listed here: None I did visit the patient and the ICU prior to stress test he was on his way to the test. He stated he is having no discomfort. His vitals remain stable through stay. I did supervisor counseling and guidance him about smoking cessation and general overall health. Patient underwent a stress test which was nondiagnostic due to his lack of achieving his target heart rate, other than dyspnea. No significant symptoms. Cardiogram is reviewed without concern for regional wall motion changes. The patient will be discharged to follow-up with outpatient care to contact begin to change his risk factors of obesity, smoking, sedentary lifestyle. Documented By: Jorje Rosales Total Time Spent: Greater than 30 minutes This includes examination of the patient, discharge planning, medication reconciliation, and communication with other providers. Discharge Instructions Please refer to the electronic Patient Visit Report (Discharge Instructions) for additional information. Follow-Up Follow up with your Primary Care Provider within 1 week. Follow up with cardiology within 1 week. Additional Copies To Jamarcus Cramer M.D.
--- NOTE | 2017-07-19 18:25 | DOBUTAMINE ECHO ---
*NOTICE TO RECEIVING DEMOCRAT AGENCY This information is strictly Confidential and protected under [place] law. [place] law prohibits you from making any further disclosure of this information unless further disclosure is expressly permitted by the written consent of the person to whom it pertains or is authorized by law. A general authorization for the release of medical or other information is not sufficient for this purpose. Hospital accepts no responsibility if the information is made available to any other person, INCLUDING THE PATIENT. Interpretation Summary * Name: KWAKU FRANCOIS Study Date: 07/19/2017 11:04 AM BP: 156/50 mmHg * Patient Location: .MSICU\S\E110\S\1 HR: 75 * : 1980 (M/d/yyyy) Gender: Male Height: 69 in * Age: 37 yrs Ethnicity: CA Weight: 463 lb * Ordering Physician: Saba Hamilton * Performed By: Dora Mayers ZEINAB * * Reason For Study: CHEST PAIN * BSA: 3.0 m2 * -- Conclusions -- * Technically difficult study due to body habitus * 1. Nondiagnostic dobutamine stress echo due to inability to reach target heart rate. No dobutamine induced wall motion abnormalities at 75% MPHR. * 2. No dobutamine induced EKG changes at 75% MPHR. * 3. Normal resting LV size and function. RV not well visualized. RV function appears mildly reduced. No significant valvular pathology. * 4. No prior studies for comparison. Procedure Details * DOBUTAMINE ECHO, CPT#00546 * ECHO DOPPLER, CPT #08599 * ECHO COLOR FLOW, CPT #48558 * The study was technically difficult with many images being suboptimal in quality. * A contrast injection of Definity was performed to improve assessment of LV function. * Contrast was injected into an intravenous site in the right arm. * One vial of Definity ultrasound contrast was diluted in normal saline to a total volume of 10 ml. A total of '9' ml of solution was administered during imaging. * Lot # [id number] of Definity utilized for procedure. * Expiration date 09/30. * The attending nurse who injected the contrast agent was ROCÍO HA RN. Left Ventricle * The left ventricle is grossly normal size. * There is normal left ventricular wall thickness. * Ejection Fraction = 55-60%. Right Ventricle * The right ventricle is not well visualized. * The right ventricular systolic function is mildly reduced. Atria * The left atrium is not well visualized. * Right atrial size is normal. * Right atrium not well visualized. Mitral Valve * The mitral valve is grossly normal. * There is no mitral valve stenosis. * Significant mitral regurgitation is absent. Tricuspid Valve * The tricuspid valve is not well visualized, but is grossly normal. * Significant tricuspid regurgitation is absent. Aortic Valve * The aortic valve opens well. * The aortic valve is trileaflet. * No hemodynamically significant valvular aortic stenosis. * There is no significant aortic regurgitation. Pulmonic Valve * The pulmonary valve is inadequately visualized, but the Doppler data is adequate for interpretation. * There is no significant pulmonary regurgitation. Great Vessels * The aortic root and proximal ascending aorta are normal sized. Pericardium * There is no pericardial effusion. Stress Parameters * Sinus rhythm, ventricular rate 74, incomplete right bundle-branch block. * Stress ECG: No ST changes. No arrhythmias. * No arrhythmia were noted with stress. * Rest heart rate was '75' BPM. * Rest blood pressure was '156/50' * Maximum heart rate achieved was 137 bpm. * Maximum heart rate was 75 % of maximum age-predicted heart rate. * Maximum blood pressure was '156/50' * Maximum Dobutamine infusion rate was '50' mcg/kg/min. * A total of 2 mg of intravenous Atropine was used to supplement Dobutamine for heart rate response. * Dobutamine infusion was terminated due to end of protocol/maximum medication doses * A total of 10 mg of IV Metoprolol was administered to reverse Dobutamine-induced tachycardia. * The patient did not exhibit any symptoms during drug infusion. * Normal blood pressure response to exercise. * Target heart rate not achieved. Left Ventricular Findings with Stress * The study was technically adequate with some images being suboptimal in quality. MMode 2D Measurements and Calculations IVSd 1.8 cm IVSs 2.2 cm LVIDd 5.4 cm LVIDs 3.4 cm LVPWd 0.97 cm LVPWs 2.0 cm IVS/LVPW 1.8 FS 36.9 % EDV(Teich) 140.3 ml ESV(Teich) 47.3 ml EF(Teich) 66.3 % EDV(cubed) 156.1 ml ESV(cubed) 39.2 ml EF(cubed) 74.9 % % IVS thick 25.5 % % LVPW thick 112.1 % LV mass(C)d 317.3 grams LV mass(C)dI 107.5 grams/m\S\2 LV mass(C)s 344.1 grams LV mass(C)sI 116.6 grams/m\S\2 SV(Teich) 93.0 ml SI(Teich) 31.5 ml/m\S\2 SV(cubed) 116.9 ml SI(cubed) 39.6 ml/m\S\2 ACS 1.7 cm LA dimension 4.1 cm asc Aorta Diam 3.0 cm LVOT diam 2.2 cm LVOT area 4.0 cm\S\2 LVAd ap4 45.3 cm\S\2 LVLd ap4 9.6 cm EDV(MOD-sp4) 176.7 ml EDV(sp4-el) 181.2 ml LVAs ap4 23.3 cm\S\2 LVLs ap4 7.1 cm ESV(MOD-sp4) 62.9 ml ESV(sp4-el) 64.8 ml EF(MOD-sp4) 64.4 % EF(sp4-el) 64.2 % SV(MOD-sp4) 113.8 ml SI(MOD-sp4) 38.5 ml/m\S\2 SV(sp4-el) 116.3 ml SI(sp4-el) 39.4 ml/m\S\2 Doppler Measurements and Calculations MV E max ryan 107.2 cm/sec MV A max ryan 67.9 cm/sec MV E/A 1.6 MV dec time 0.22 sec Ao V2 max 80.8 cm/sec Ao max PG 2.6 mmHg Ao max PG (full) -0.08 mmHg JERAMIE(V,A) 4.0 cm\S\2 JERAMIE(V,D) 4.0 cm\S\2 LV V1 max PG 2.7 mmHg LV V1 max 82.0 cm/sec PA V2 max 55.3 cm/sec PA max PG 1.2 mmHg
== END 2017-07-19 16:24 | disposition home or self-care (01) | DRG 313 ==
LOC: C.EDB 21:54 → C.MSICU 07-19 00:21 → ENRESERV 07-19 00:42
PROVIDERS: ADMIT Internal Medicine; ATTEND Internal Medicine
DX: R07.89 Other chest pain (principal); Z68.44 Body mass index [BMI] 60.0-69.9, adult; R00.2 Palpitations; R73.03 Prediabetes; E66.01 Morbid (severe) obesity due to excess calories; J45.909 Unspecified asthma, uncomplicated; F17.200 Nicotine dependence, unspecified, uncomplicated; Z51.81 Encounter for therapeutic drug level monitoring; Z82.49 Family history of ischemic heart disease and other diseases of the circulatory system

== ENCOUNTER → 2017-08-26 | Outpatient (CLI) | payer OTHER ==
[~2017-08-26] MED LIST changes: +LPR25 PO; +LPT40 PO
--- NOTE | 2017-08-27 06:17 | SPLIT NIGHT TECHNICIAN REPORT ---
[facility] Split Night Polysomnogram - Materials Assistant Report Study date: 08/26/2017 Referring Physician: DR. RYAN Name: KWAKU MONSALVE Materials Assistant: SHARRI Coy. Date of : 1980 Height: 37 years, Height 5' 9" Sex: Male Weight: 466 lbs Age: 37 Neck Circum: 20 INCHES BMI: Medications: 68.81 ALBUTEROL SULFATE, ANDROGEL PUMP, PROVENTIL HFA 108 90 BASE, SERTRALINE HCL 25 MG, Patient History PATIENT HAS HISTORY OF OBESITY, SNORING, FATIGUE, EXCESSIVE DAYTIME SLEEPINESS AND WITNESSED APNEAS. HE IS HERE TODAY FOR AN EVALUATION FOR CHRISTIANO. ESS = 7 RM 6 Parameters Monitored NPSG: E1-M2, E2-M1, Fp1-M2, Fp2-M1, F3-M2, F4-M2, F4-M1, C3-M2, C4-M2, C4-M1, O1-M2, O2-M2, O2-M1, T3-M2, T4-M1, P3-M2, P4-M1, CHIN1, CHIN2, HR, EKG, Legs, PFLOW, SNOR, FLOW, CFLOW, Tidal Volume, THOR, ABDO, SpO2, PLTH, CPRESS, ETCO2 Wave, ETCO2, pH SLEEP SUMMARY DATA DIAGNOSTIC TREATMENT Lights Out: 10:06:48 PM 12:46:48 AM Lights On: 12:39:18 AM 5:04:48 AM Total Recording Time (TRT): 153.0 min. 258.5 min. Total Sleep Time (TST): 143.5 min. 200.0 min. NREM Time: 128.0 min. 137.5 min. REM Time: 15.5 min. 62.5 min. Sleep Period Time (SPT): 146.0 min. 205.5 min. Sleep Efficiency (SE): 94 % 78 % Sleep Latency: 6.5 min. 11.5 min. Arousal Index: 32.6 16.8 PAP Treatment Levels: 4, 5, 6, 8, 9, 11, 13, 14, 15, 16, 17, 18 * Optimal Pressure(s) SLEEP STAGING DATA DIAGNOSTIC TREATMENT Duration (min) TST % Duration (min) TST % Stage Wake: 9.0 min. -- 58.5 min. -- WASO: 2.5 min. -- 5.5 min. -- NREM: 128.0 min. 89 % 137.5 min. 69 % Stage N1: 17.0 min. 12 % 7.5 min. 4 % Stage N2: 93.5 min. 65 % 93.0 min. 47 % Stage N3: 17.5 min. 12 % 37.0 min. 19 % REM: 15.5 min. 11 % 62.5 min. 31 % POSITIONAL DATA Event Count Index Event Count Index Supine: 125 49 83 22.8 Supine NREM: 98 42.7 41 15.7 Supine REM: 27 105 42 38 Non-Supine: N/A N/A N/A N/A Non-Supine NREM: N/A N/A N/A N/A Non-Supine REM: N/A N/A N/A N/A AROUSAL SUMMARY DATA: Event Count Index Event Count Index Apnea Arousals: 7 12.5 10 5.4 Hypopnea Arousals: 17 7.1 9 2.7 Snore Arousals: 0 0.0 2 0.6 PLM Arousals: 7 2.9 11 3.3 Non-Specific Arousals: 38 15.9 15 4.5 Total Arousals: 78 32.6 56 16.8 MYOCLONUS (PLM) Event Count Index Event Count Index PLM: 162 67.7 261 78.3 PLM AROUSAL: 7 2.9 11 3.3 PLM W/O AROUSAL 162 67.7 250 75.0 PLM W/RESP EVENT 33 0.0 6 0.0 MYOCLONUS (PLM) Event Count Index Event Count Index LM: 3 27.6 31 9.3 LM AROUSAL: 3 1.3 2 0.6 LM W/O AROUSAL LM W/RESP EVENT LM NON SPECIFIC 163 68.2 269 80.7 HEART RATE DATA DIAGNOSTIC TREATMENT Sleep (bpm): 67 68 REM (bpm): 90 93 NREM (bpm): 94 93 Tachycardia Count: 0 0 Tachycardia Duration: 0.00 0 Bradycardia Count: 0 0 Bradycardia Duration: 0.00 0 DIAGNOSTIC PORTION TREATMENT PORTION RESPIRATORY DATA Event Count Index Event Count Index AHI: -- 49.3 -- 22.8 RDI: -- 52.3 -- 25 Obstructive Apnea: 30 12.5 16 4.8 Central Apnea: 0 0.0 2 0.6 Mixed Apnea: 0 0.0 0 0.0 Hypopnea: 88 36.8 58 17.4 RERA: 7 2.9 7 2.1 Total Apneas: 30 12.5 18 5.4 RESPIRATORY DATA REM NREM SLEEP REM NREM SLEEP Supine Position: Obstructive Apneas: 20 10 30 0 16 16 Central Apneas: 0 0 0 0 2 2 Mixed Apneas: 0 0 0 0 0 0 Hypopneas: 7 81 88 40 18 58 RERA 0 7 7 2 5 7 Total Supine Events: 27 98 125 42 41 83 Supine AHI: 105 42.7 49 38 15.7 22.8 Supine RDI: 104.5 45.9 52.3 40.3 17.9 24.9 REM NREM SLEEP REM NREM SLEEP Non-Supine Position: Obstructive Apneas: N/A N/A N/A N/A N/A N/A Central Apneas: N/A N/A N/A N/A N/A N/A Mixed Apneas: N/A N/A N/A N/A N/A N/A Hypopneas: N/A N/A N/A N/A N/A N/A RERA N/A N/A N/A N/A N/A N/A Total Supine Events: N/A N/A N/A N/A N/A N/A Supine AHI: N/A N/A N/A N/A N/A N/A Supine RDI: N/A N/A N/A N/A N/A N/A OXYGEN DESTAURATION DATA: Event Count Index Event Count Index REM Desaturations: 25 96.8 41 39.4 NREM Desaturations: 97 45.5 29 12.7 SNORE DATA DIAGNOSTIC TREATMENT Snore Time: 2.9 12:58:18 AM Snore TST%: 1 2 Snore Arousal Count: 0 2 Snore Arousal Index: 0.0 0.6 Desaturation Event Summary: Minimum %SpO2 Event Count Mean/Min/Max Duration(sec.) Desaturation Index % Time In Bed > 90 193 24.3 / 6.9 / 80.6 30.9 93.6 86 - 90 0 N/A 0.0 5.3 81 - 85 0 N/A 0.0 0.8 76 - 80 0 N/A 0.0 0.3 71 - 75 0 N/A 0.0 0.0 66 - 70 0 N/A 0.0 0.0 61 - 65 0 N/A 0.0 0.0 56 - 60 0 N/A 0.0 0.0 51 - 55 0 N/A 0.0 0.0 < 50 0 N/A 0.0 0.0 OXYGEN SATURATION DATA DIAGNOSTIC TREATMENT SpO2 Mean Sleep: 94 % 93 % SpO2 Mean REM: 90 % 93 % SpO2 Mean NREM: 94 % 93 % SpO2 Minimum Sleep: 76 % 85 % SpO2 Minimum REM: 76 % 85 % SpO2 Minimum NREM: 81 % 90 % Time Below 90% (TST): 11.1 4.4 Time Below 88% (TST): 6.3 1.8 Total REM NREM Awake <50% 0.0 min. 0.0 min. 0.0 min. 0.0 min. 51 - 60% 0.0 min. 0.0 min. 0.0 min. 0.0 min. 61 - 70% 0.2 min. 0.0 min. 0.0 min. 0.2 min. 71 - 80% 1.1 min. 1.1 min. 0.0 min. 0.0 min. 81 - 90% 24.2 min. 13.9 min. 10.3 min. 0.0 min. 91 - 100% 375.3 min. 63.0 min. 255.2 min. 57.0 min. Average 94 93 94 95 Minimum SpO2 61 76 81 61 Desaturation Event Index 28.2 50.8 28.5 0.9 # Desat. Events below 89% 58 36 22 N/A Time(%) with Saturation below 89% 2.8 2.2 0.6 0.0 Time(min.) with Saturation below 89% 11.3 8.8 2.4 0.2 Recording Materials Assistant Comments: Mr. Monsalve slept in the supine positions. PAC's noted. Leg movements noted. No bruxism noted. Snoring was noted and scored as a 3 on a scale of 1 through 5. (0=no snoring, 5=snoring loud enough to be heard through a closed door or down the conde way) At 12:39 am Mr. Monsalve has met specific Split-Night criteria during the diagnostic portion of this study. CPAP was initiated at +4 CMH2O and up-titrated to an optimal level of +18 CMH2O. A Resmed Mirage Quattro full face size medium mask was used during titration Mr. Monsalve awoke to use the restroom 1 time during the night. Mr. Monsalve stated I slept as well as I do when I am in my own bed. The final report will be interpreted and signed by a sleep physician. The completed physician report will then be placed in the patient medical record. Therapy Event: Therapy (cm H20) 0 4 5 6 8 9 11 Total Time at Pressure (min.) 152.5 16.4 4.8 8.5 16.6 38.0 7.4 TST at Pressure (min.) 143.5 4.9 4.8 8.5 16.6 38.0 7.4 # Periods 1 1 1 1 1 1 1 Sleep Onset (min.) 6.5 11.5 0.0 0.0 0.0 0.0 0.0 REM Onset (min.) 130.0 N/A N/A N/A N/A 35.2 0.0 Sleep Efficiency % 94 29 100 100 100 100 100 Wakefulness (%) 5.9 70.1 0.0 0.0 0.0 0.0 0.0 Wakefulness (min.) 9.0 11.5 0.0 0.0 0.0 0.0 0.0 NREM 1 (%) 11.1 21.3 0.0 0.0 0.0 0.0 0.0 NREM 1 (min.) 17.0 3.5 0.0 0.0 0.0 0.0 0.0 NREM 2 (%) 61.3 8.5 100.0 100.0 65.0 32.9 0.0 NREM 2 (min.) 93.5 1.4 4.8 8.5 10.8 12.5 0.0 NREM 3 (%) 11.5 0.0 0.0 0.0 35.0 59.7 0.0 NREM 3 (min.) 17.5 0.0 0.0 0.0 5.8 22.7 0.0 REM (%) 10.2 0.0 0.0 0.0 0.0 7.5 100.0 REM (min.) 15.5 0.0 0.0 0.0 0.0 2.8 7.4 # Arousals 78 6 8 9 1 9 2 Arousal Index 32.6 73.5 99.0 63.7 3.6 14.2 16.2 # Snore 143 1 2 5 15 2 6 Snore Index 59.8 12.2 24.7 35.4 54.4 3.2 48.6 AHI 49.3 36.7 86.6 99.0 7.2 12.6 81.0 AHI Supine 49.3 36.7 86.6 99.0 7.2 12.6 81.0 AHI Non-Supine N/A N/A N/A N/A N/A N/A N/A NREM AHI 42.7 36.7 86.6 99.0 7.2 8.5 N/A REM AHI 104.5 N/A N/A N/A N/A 63.4 81.0 RDI 52.3 61.2 86.6 106.1 7.2 14.2 81.0 # Obstructive 30 1 6 9 0 0 0 # Central Ap 0 1 0 0 0 0 0 # Mixed 0 0 0 0 0 0 0 # Hypopneas 88 1 1 5 2 8 10 RERAS 7 2 0 1 0 1 0 Total Respiratory Events 125 5 7 15 2 9 10 Time Below SpO2 89.00% (min.) 8.1 0.0 0.0 0.0 0.0 0.5 1.7 Mean NREM SpO2 (%) 94 94 94 94 94 93 N/A Mean REM SpO2 (%) 90 N/A N/A N/A N/A 92 92 Mean Sleep SpO2 (%) 94 94 94 94 94 93 92 Min NREM SpO2 (%) 81 91 90 90 91 90 N/A Min REM SpO2 (%) 76 N/A N/A N/A N/A 85 85 Position Supine (min.) 143.5 4.9 4.8 8.5 16.6 38.0 7.4 Position Non-supine (min.) 0.0 0.0 0.0 0.0 0.0 0.0 0.0 LM Index Sleep 95.3 73.5 24.7 28.3 94.2 104.1 48.6 LM Index NREM 89.5 73.5 24.7 28.3 94.2 100.5 N/A LM Index REM 143.2 N/A N/A N/A N/A 148.0 48.6 Mean Heart Rate (bpm) 67 65 64 63 67 70 65 Min Heart Rate (bpm) 51 59 57 58 59 57 59 Therapy (cm H20) 13 14 15 16 17 18 Total Time at Pressure (min.) 6.5 15.7 22.1 50.6 15.0 56.4 TST at Pressure (min.) 6.5 15.7 22.1 45.1 15.0 15.4 # Periods 1 1 1 1 1 1 Sleep Onset (min.) 0.0 0.0 0.0 0.0 0.0 0.0 REM Onset (min.) 0.0 0.0 0.0 N/A 5.8 0.0 Sleep Efficiency % 100 100 100 89 100 27 Wakefulness (%) 0.0 0.0 0.0 10.9 0.0 72.8 Wakefulness (min.) 0.0 0.0 0.0 5.5 0.0 41.0 NREM 1 (%) 0.0 0.0 4.5 5.9 0.0 0.0 NREM 1 (min.) 0.0 0.0 1.0 3.0 0.0 0.0 NREM 2 (%) 0.0 0.0 70.3 66.4 38.9 0.0 NREM 2 (min.) 0.0 0.0 15.6 33.6 5.8 0.0 NREM 3 (%) 0.0 0.0 0.0 16.8 0.0 0.0 NREM 3 (min.) 0.0 0.0 0.0 8.5 0.0 0.0 REM (%) 100.0 100.0 25.2 0.0 61.1 27.2 REM (min.) 6.5 15.7 5.6 0.0 9.1 15.4 # Arousals 1 1 1 11 5 2 Arousal Index 9.2 3.8 2.7 14.6 20.0 7.8 # Snore 9 24 85 17 31 0 Snore Index 82.8 91.9 230.5 22.6 124.2 0.0 AHI 55.2 45.9 5.4 6.7 24.0 3.9 AHI Supine 55.2 45.9 5.4 6.7 24.0 3.9 AHI Non-Supine N/A N/A N/A N/A N/A N/A NREM AHI N/A N/A 0.0 6.7 0.0 N/A REM AHI 55.2 45.9 21.6 N/A 39.4 3.9 RDI 64.4 45.9 5.4 8.0 28.0 3.9 # Obstructive 0 0 0 0 0 0 # Central Ap 0 0 0 1 0 0 # Mixed 0 0 0 0 0 0 # Hypopneas 6 12 2 4 6 1 RERAS 1 0 0 1 1 0 Total Respiratory Events 7 12 2 6 7 1 Time Below SpO2 89.00% (min.) 0.8 0.0 0.0 0.0 0.0 0.1 Mean NREM SpO2 (%) N/A N/A 94 93 93 N/A Mean REM SpO2 (%) 92 93 94 N/A 93 94 Mean Sleep SpO2 (%) 92 93 94 93 93 94 Min NREM SpO2 (%) N/A N/A 92 90 92 N/A Min REM SpO2 (%) 85 89 91 N/A 90 88 Position Supine (min.) 6.5 15.7 22.1 45.1 15.0 15.4 Position Non-supine (min.) 0.0 0.0 0.0 0.0 0.0 0.0 LM Index Sleep 27.6 15.3 97.6 146.3 96.1 19.5 LM Index NREM N/A N/A 130.4 146.3 133.7 N/A LM Index REM 27.6 15.3 0.0 N/A 72.2 19.5 Mean Heart Rate (bpm) 67 67 69 69 67 67 Min Heart Rate (bpm) 60 58 57 58 59 59
--- NOTE | 2017-08-27 17:04 | POLYSOMNOGRAPH REPORT ---
CLINICAL DATA: A 37-year-old male with BMI of 68.[address] Cramer and myself with snoring, fatigue, witnessed apnea, excessive daytime sleepiness. This was a split night study. SLEEP ARCHITECTURE: For the diagnostic portion of the study, sleep period was 146 minutes. Total sleep time was 143.5 minutes divided between 128 minutes of non-REM sleep and 15.5 minutes of REM sleep. Sleep latency was 6.5 minutes. Sleep efficiency was 94%. Sleep consisted of stage N1 12%, stage N2 65%, stage N3 12%, and REM 11%. For the treatment portion of the study, sleep period time was 205.5 minutes. Total sleep time was 200 minutes divided between 137.5 minutes of non-REM sleep and 62.5 minutes of REM sleep. Sleep onset latency was 11.5 minutes. Sleep efficiency was 78%. Sleep consisted of stage N1 4%, stage N2 47%, stage N3 19%, and REM 31%. AROUSAL DATA: Prior to treatment, 78 arousals were recorded for an index of 32.6 per hour. During treatment, 56 arousals recorded for an index of 16.8 per hour. PLM DATA: Prior to treatment, 163 limb movements during sleep were noted for an index of 68.2 per hour. During treatment, 269 limb movements during sleep were noted for an index of 80.7 per hour. EKG: Heart rates ranged from 67 and 93 beats per minute. PACs were noted. RESPIRATORY DATA: Prior to treatment, severe sleep apnea was documented. The AHI was 49.3. The RDI was 52.3. There were 30 obstructive apneic episodes, 88 hypopneic episodes, and 7 RERAs. During treatment the mean AHI was 22.8. There were 16 obstructive and 2 central apneic episodes. There were 58 hypopneic episodes and 7 RERAs. OXIMETRY DATA: Nocturnal hypoxemia was seen prior to treatment. Oxygen jaime was 76% in REM sleep. Mean saturation during treatment was 93%. UNSCRAMBLER'S COMMENTS AND TREATMENT SUMMARY: The patient slept supine. Snoring was moderate, rated 3 on a scale of 1-5. At 12:39 a.m. the patient met split night criteria. He used a ResMed Mirage Quattro full facemask size medium. He was started on CPAP and titrated up to his final pressure setting of 18 cm of water pressure. At his final pressure setting he slept for 15 minutes with an AHI of 3.9. IMPRESSION: Severe sleep apnea/hypopnea with an AHI of 49.3 with nocturnal hypoxemia corrected with CPAP 18 cm water pressure utilizing a ResMed Mirage Quattro full face size medium mask. RECOMMENDATIONS: The patient will be seen back in followup to institute therapy and monitor treatment.
== END | disposition home or self-care (01) ==
LOC: C.NEUR 20:00
PROVIDERS: ATTEND Internal Medicine Pulmonary Disease
DX: G47.30 Sleep apnea, unspecified (principal)

== ENCOUNTER 2017-11-11 21:58 | Emergency (ER) | payer OTHER ==
[~2017-11-11] VITALS: Ht 175.3 cm; Wt 135.1 kg
[2017-11-11 22:14] VITALS: TEMP 36.7; Ht 175.3 cm; Wt 135.1 kg
[2017-11-11] MEDS ORDERED: ALBUT/IPRATROP 3MG/0.5MG NEB 3 ML VIAL INH STA (23:14)
[2017-11-11] MEDS ORDERED: DEXAMETHASONE **PF** INJ 10 MG/ML VIAL IV ONE (23:15)
[2017-11-12] MEDS ORDERED: CEFTRIAXONE SOD INJ 1 GM ADDVIAL IV STA (00:03)
[2017-11-12 00:07] LABS: BASO % 0.2 %; BASO ABS # 0.02 K/uL (0-0.2); EOS % 2.9 %; EOS ABS # 0.36 K/uL (0-0.5); HEMATOCRIT 41.8 % (42-52); HEMOGLOBIN 14.1 g/dL (14.0-18.0); IG# 0.07 K/uL (0.00-0.02); LYMPH % 17.2 %; LYMPH ABS # 2.14 K/uL (1.2-3.4); MEAN CELL VOLUME 92.7 fL (80-100); MEAN CORPUSCULAR HEMOGLOBIN 31.3 pg (25-34); MEAN CORPUSCULAR HGB CONC 33.7 g/dl (32-36); MEAN PLATELET VOLUME 10.3 fL (7.4-10.4); MONO % 9.4 %; MONO ABS # 1.17 K/uL (0.11-0.59); NEUT % 69.7 %; NEUT ABS # 8.71 K/uL (1.4-6.5); PLATELET COUNT 227 K/uL (130-400); RED CELL DISTRIBUTION WIDTH CV 14.9 % (11.5-14.5); RED CELL DISTRIBUTION WIDTH SD 50.1 fL (36.4-46.3); WHITE BLOOD COUNT 12.47 K/uL (4.8-10.8)
[2017-11-12] MEDS ORDERED: ANDG TOP (00:10)
[2017-11-12 00:24] LABS: ALBUMIN 3.5 gm/dl (3.4-5.0); ALT/SGPT 37 U/L (12-78); AST/SGOT 17 U/L (15-37); BLOOD UREA NITROGEN 12 mg/dl (7-18); CALCIUM 8.7 mg/dl (8.5-10.1); CARBON DIOXIDE 24 mmol/L (21-32); CREATININE 0.81 mg/dl (0.60-1.40); GLUCOSE 96 mg/dl (70-99); POTASSIUM 3.7 mmol/L (3.5-5.1); SODIUM 140 mmol/L (136-145)
[2017-11-12 00:29] LABS: ALKALINE PHOSPHATASE 98 U/L (45-117); TOTAL PROTEIN 7.3 gm/dl (6.4-8.2)
[2017-11-12] MEDS ORDERED: ALBUTEROL HFA 8 GM INHALER INH STA (01:44)
[2017-11-12] MEDS ORDERED: AZITHROMYCIN 250 MG TAB PO STA (01:44)
[2017-11-12] MEDS ORDERED: AMOXICILLIN 250 MG CAP PO STA (01:44)
[2017-11-12] MEDS ORDERED: AZIT250T PO (01:50)
[2017-11-12] MEDS ORDERED: AMOX500C3 PO (01:50)
[2017-11-12 02:05] VITALS: BP 136/88; PULSE 92; O2SAT 96
--- NOTE | 2017-11-12 05:19 | EMERGENCY ROOM VISIT NOTE ---
History First contact with patient: 23:04 Chief Complaint: COUGH Stated Complaint: BAD COUGH W/ METALLIC TASTE,TIGHTNESS/SOB Nursing Triage Summary: cough since this morning states his phlegm tastes like metal and he was running out of breath at work tonight has some tightness in his chest History of Present Illness The patient is a 37 year old male who presents to the Emergency Room with complaints of cough, congestion, chest pain with coughing for the past few days who smokes. Patient complains of subjective fever and chills. Patient denies exertional chest pain, abdominal pain, leg pain or swelling, sore throat, headache, neck stiffness, vomiting, diarrhea. He is tolerating p.o. fluids and food. Review of Systems An 10 system review of systems was completed with positives and pertinent negatives listed in the HPI. Past Medical/Surgical History Medical Problems: (1) Arm paresthesia, right (2) Asthma, Unspecified (3) Chest pain (4) Dizziness (5) Lumbar strain (6) Palpitations (7) Palpitations (8) Radiculopathy (9) Scalp cyst (10) Vertigo Social History Smoking Status: Current Every Day Smoker Drug Use: none Marital Status: in relationship Occupation Status: employed Current/Historical Medications Scheduled Amoxicillin (Amoxil), 1,000 MG PO BID Azithromycin (Zithromax), 250 MG PO DAILY Testosterone (Androgel), 1 PKT TOP DAILY Physical Exam Vital Signs Date Time Temp Pulse Resp B/P (MAP) Pulse Ox O2 Delivery O2 Flow Rate FiO2 11/12/17 02:05 92 20 136/88 96 11/12/17 00:17 100 11/12/17 00:07 98 20 148/77 96 Room Air 11/11/17 23:52 Room Air 11/11/17 23:52 Room Air 11/11/17 22:14 36.7 104 18 177/99 95 Room Air 11/11/17 22:14 96 Room Air Physical Exam PHYSICAL EXAM: Vital Signs: Reviewed Nurse's notes. Vital signs reviewed. GENERAL: Pleasant male, Alert, oriented and coherent. The patient is able to speak in complete sentences. NECK: Supple, non-tender. CHEST: Symmetrical expansion. no retractions no accessory muscle use. HEART: Regular rate and normal heart sounds, no murmur, gallop or rub. LUNGS: Breath sounds equal but significantly diminished in intensity on both sides. Bilateral wheezes heard but no rales or pleuritic rub. SKIN: The skin was without rashes, erythema, edema, or bruising. There is no tenting of the skin. Capillary reflex less than 2 seconds. HEAD: Normocephalic atraumatic. EARS: External auditory canals clear, tympanic membranes pearly elloitt without erythema or effusion bilaterally. EYES: Pupils equal round and reactive to light and accommodation. Conjunctivae without injection, sclerae without icterus. Extraocular movements intact. NOSE: Patent, turbinates without inflammation or discharge. No sinus tenderness. MOUTH: Mucous membranes moist. Pharynx without erythema or exudate. Uvula midline. Airway patent. Tongue does not deviate. ABDOMEN: Positive bowel sounds x 4. Normal tympanic percussion. Soft, protuberant, obese, nontender, without masses or organomegaly. King sign negative. No guarding or rebound tenderness. MUSCULOSKELETAL: No muscle atrophy, erythema, noted. NEURO: Patient was alert and oriented to person place and time. Normal sensation to light and sharp touch. No focal neurological deficits. Medical Decision & Procedures Laboratory Results 11/11/17 23:48 Red Blood Count 4.51, Mean Corpuscular Volume 92.7, Mean Corpuscular Hemoglobin 31.3, Mean Corpuscular Hemoglobin Concent 33.7, Mean Platelet Volume 10.3, Neutrophils (%) (Auto) 69.7, Lymphocytes (%) (Auto) 17.2, Monocytes (%) (Auto) 9.4, Eosinophils (%) (Auto) 2.9, Basophils (%) (Auto) 0.2, Neutrophils # (Auto) 8.71, Lymphocytes # (Auto) 2.14, Monocytes # (Auto) 1.17, Eosinophils # (Auto) 0.36, Basophils # (Auto) 0.02 11/11/17 23:48 Test 11/11/17 23:48 11/12/17 00:01 White Blood Count 12.47 K/uL (4.8-10.8) Red Blood Count 4.51 M/uL (4.7-6.1) Hemoglobin 14.1 g/dL (14.0-18.0) Hematocrit 41.8 % (42-52) Mean Corpuscular Volume 92.7 fL (80-100) Mean Corpuscular Hemoglobin 31.3 pg (25-34) Mean Corpuscular Hemoglobin Concent 33.7 g/dl (32-36) Platelet Count 227 K/uL (130-400) Mean Platelet Volume 10.3 fL (7.4-10.4) Neutrophils (%) (Auto) 69.7 % Lymphocytes (%) (Auto) 17.2 % Monocytes (%) (Auto) 9.4 % Eosinophils (%) (Auto) 2.9 % Basophils (%) (Auto) 0.2 % Neutrophils # (Auto) 8.71 K/uL (1.4-6.5) Lymphocytes # (Auto) 2.14 K/uL (1.2-3.4) Monocytes # (Auto) 1.17 K/uL (0.11-0.59) Eosinophils # (Auto) 0.36 K/uL (0-0.5) Basophils # (Auto) 0.02 K/uL (0-0.2) RDW Standard Deviation 50.1 fL (36.4-46.3) RDW Coefficient of Variation 14.9 % (11.5-14.5) Immature Granulocyte % (Auto) 0.6 % Immature Granulocyte # (Auto) 0.07 K/uL (0.00-0.02) Anion Gap 8.0 mmol/L (3-11) Est Creatinine Clear Calc Drug Dose 168.7 ml/min Estimated GFR () 130.7 Estimated GFR (Non- 112.7 BUN/Creatinine Ratio 14.9 (10-20) Calcium Level 8.7 mg/dl (8.5-10.1) Total Bilirubin 0.3 mg/dl (0.2-1) Direct Bilirubin < 0.1 mg/dl (0-0.2) Aspartate Amino Transf (AST/SGOT) 17 U/L (15-37) Alanine Aminotransferase (ALT/SGPT) 37 U/L (12-78) Alkaline Phosphatase 98 U/L (45-117) Troponin I < 0.015 ng/ml (0-0.045) Total Protein 7.3 gm/dl (6.4-8.2) Albumin 3.5 gm/dl (3.4-5.0) Bedside Troponin I < 0.030 ng/ml (0-0.045) Medications Administered Medications (Trade) Dose Ordered Sig/Shi Route Start Time Stop Time Status Last Admin Dose Admin Dexamethasone Sodium Phosphate (Dexamethasone Inj Pf) 10 mg NOW ONCE IV 11/11/17 23:15 11/11/17 23:16 DC 11/11/17 23:53 10 MG Albuterol/ Ipratropium (Duoneb) 3 ml NOW STAT INH 11/11/17 23:14 11/11/17 23:16 DC 11/11/17 23:53 3 ML Ceftriaxone Sodium (Rocephin Inj) 1 gm NOW STAT IV 11/12/17 00:03 11/12/17 00:05 DC 11/12/17 00:25 1 GM Amoxicillin (Amoxil Cap) 1,000 mg NOW STAT PO 11/12/17 01:44 11/12/17 01:48 DC 11/12/17 02:01 1,000 MG Azithromycin (Zithromax Tab) 500 mg NOW STAT PO 11/12/17 01:44 11/12/17 01:48 DC 11/12/17 02:01 500 MG Albuterol (Ventolin Hfa Inhaler) 2 puffs ONE STAT INH 11/12/17 01:44 11/12/17 01:48 DC 11/12/17 02:00 2 PUFFS ED Course Prior records/ancillary studies reviewed. Triage Nursing notes reviewed. The patient's history was concerning for respiratory difficulties. Differential diagnosis: Etiologies such as infections, reactive airway disease, pneumonia, pneumothorax , COPD, CHF, cardiac ischemia, pulmonary embolism, musculoskeletal, gastrointestinal, as well as others were entertained. Physical examination: As above. ER treatment provided: Nebulizer, Rocephin, amoxicillin, Zithromax On reassessment the patient felt better. Diagnostic interpretation by me: The electrocardiogram was normal sinus, normal axis, no acute ST-T wave changes , rate of 95. Impression normal sinus rhythm interpreted by myself The labs revealed negative troponin. No worrisome electrolyte abnormality. Mild leukocytosis Imaging studies: Chest x-ray with concerns for pneumonia in the right lower lobe, no free air or pneumothorax my interpretation CURB Score: Confusion: 0 Urea (BUN > 19): 0 Respiratory Rate (>30/min): 0 Blood Pressure: Diastolic <60 or Systolic <90 0 Age (>= 65) 0 Total (0-1 low risk, 2-5 high risk): 0 This appears to be consistent with pneumonia. Patient was given Rocephin in the ER and sent out on Zithromax and amoxicillin. He was strongly encouraged to quit smoking. He was given an inhaler. He was advised to take medicines as directed, rest, stay well-hydrated and follow-up family care in a few days here and here sooner for high fevers, lethargy, chest pain, difficulty breathing, worsening signs or symptoms or as needed. By the evaluation outlined above emergent etiologies such as CHF, cardiac ischemia, pulmonary embolism, reactive airway disease,pneumothorax, musculoskeletal, serious bacterial infections, as well as others were deemed relatively unlikely. The pt informed about the findings as listed above. All questions were answered and pleased with the treatment. Return instructions were outlined and the patient was discharged in stable condition. Outpatient prescription management: Amoxicillin, Zithromax Referral: The patient was referred back to their primary care physician for follow-up in 2 to 3 days for a recheck of the current condition. Case reviewed with my attending The chart was completed utilizing [employer] Speech voice recognition software. Grammatical errors, random word insertions, pronoun errors, and incomplete sentences are an occassional consequence of this system due to software limitations, ambient noise, and hardware issues. Any formal questions or concerns about the content, text, or information contained within the body of this dictation should be directly addressed to the physician photography assistant for clarification. Medical Decision As above Medication Reconcilliation Current Medication List: was personally reviewed by me Blood Pressure Screening Patient's blood pressure: Elevated blood pressure Blood pressure disposition: Elevated BP felt to be situational Impression Primary Impression: Pneumonia Departure Information Dispostion Home / Self-Care Condition GOOD Prescriptions Azithromycin (Zithromax) 250 Mg Tab 250 MG PO DAILY for 4 Days, #4 TAB Prov: Lidya Amador PA-C 11/12/17 Amoxicillin (AMOXIL) 500 Mg Cap 1000 MG PO BID for 10 Days, #40 CAP Prov: Lidya Amador PA-C 11/12/17 Forms HOME CARE DOCUMENTATION FORM, Work Instructions, Return To Work: 3 days IMPORTANT VISIT INFORMATION Patient Instructions Pneumonia Tx, My [facility] Additional Instructions DO NOT drive, drink alcohol, operate machinery, or perform dangerous activities today. You were given medications in the ER that can affect your ability to safely function or operate a vehicle. Azithromycin(Zithromax) 250mg: Take one a day for 4 additional days. All antibiotics can cause diarrhea. If this occurs and you feel worse or it does not resolve in 1-2 days follow up with your doctor or return to the Emergency Department as this could be signs of serious underlying problems. Any medication can cause an allergic reaction, stop the pills immediately and return to the ER for rash, hives, breathing difficulties, or swelling. Amoxicillin 500 mg mg: Take 2 pills twice daily for 10 days for your infection. Take with food, but avoid dairy. Avoid prolonged sun exposure since this medication makes you temporarily more susceptible to sunburns. All antibiotics can cause diarrhea. If this occurs and you feel worse or it does not resolve in 1-2 days follow up with your doctor or return to the Emergency Department as this could be signs of serious underlying problems. Any medication can cause an allergic reaction, stop the pills immediately and return to the ER for rash, hives, breathing difficulties, or swelling. Albuterol Inhaler: Take 2 puffs four times daily for seven days, then as needed. Acetaminophen(Tylenol) may be used for fever or pain. Use 1000mg every six hours as needed. Avoid using more than 3000mg in a 24 hour period. AND/OR Ibuprofen(Motrin, Advil) may be used for fever or pain. Use 600mg every six hours as needed. Take with food. Avoid using more than 2400mg in a 24 hour period. Do not use 2400mg per day for more than three consecutive days without physician direction. Prolonged inappropriate use can lead to stomach upset or ulcers. Controlling your fever with Tylenol and Ibuprofen as above will make you feel better. Rest and drink plenty of fluids. Avoid strenuous activity until your symptoms resolve and your breathing returns to normal. Continue current medications. Return to the ER for chest pain, difficulty breathing, persistent fevers, vomiting, worsening of your condition, or as needed. Follow-up with family care in 2-3 days. Work Instructions Return To Work: 3 days Problem Qualifiers Primary Impression: Pneumonia Pneumonia type: due to unspecified organism Laterality: right Lung location : lower lobe of lung Qualified Codes: J18.1 - Lobar pneumonia, unspecified organism
--- NOTE | 2017-11-12 07:21 | DIAGNOSTIC IMAGING REPORT ---
CHEST ONE VIEW PORTABLE CLINICAL HISTORY: Atypical chest pain COMPARISON STUDY: 07/18/2017 FINDINGS: The heart is normal in size. Interstitial markings are accentuated due to the patient's large body habitus. There is no overt failure. There is no focal pulmonary consolidation. There are no pleural effusions.[ IMPRESSION: No active disease in the chest. Electronically signed by: Stanley Dickerson M.D. 11/12/2017 7:19 AM Dictated Date/Time: 11/12/2017 7:19 AM
== END 2017-11-12 02:04 | disposition home or self-care (01) ==
LOC: C.EDB 22:00
DX: J18.1 Lobar pneumonia, unspecified organism (principal); J45.909 Unspecified asthma, uncomplicated; M54.10 Radiculopathy, site unspecified; F17.200 Nicotine dependence, unspecified, uncomplicated

== ENCOUNTER 2020-06-11 03:11 | Observation (INO) ==
[2020-06-11] MEDS ORDERED: NITROGLYCERIN SL 0.4 MG/TAB TAB SL STA (03:25)
--- NOTE | 2020-06-11 03:31 | Emergency Department Note ---
Impression & Plan Substernal chest pain ED Provider Note Name: KWAKU FRANCOIS Age: 40 Sex: M Arrives Via: Ambulance Informant: Patient, EMS ED Provider: Rosas Cowart MD Chief Complaint: Chest Pain Impression: Substernal Chest Pain Medical Decision Makin yr old morbidly obese male with history CHRISTIANO, dlp, anxiety, prediabetes arrives for evaluation of chest pain. Substernal and radiates left shoulder resolved with SLNTG. Already ASA prior to arrival. EKG OK and initial trop negative but within last few hours of pain onset. CXR difficult to penetrate though no clear evidence abnormality. No persistent pain and without other symptoms seems unlikely dissection. No risks for PE/DVT and without hypoxia nor SOB no indication CT PE study at this time. Labs OK. Given risks, reviewed with hospitalist who will bring in for further management. Prior Medical Record and Triage/Nursing Notes reviewed by Me Additional history obtained from chart Differentials:Cardiac ischemia, aortic dissection, pulmonary embolism, pneumothorax, pneumonia, pericarditis, myocarditis, esophageal rupture, GERD, cholecystitis, pancreatitis, musculoskeletal, as well as other pathologies. Vital Signs: reviewed and remarkable for no significant abnormalities Interventions: SLNTG, Nitro Paste Labs:Reviewed and remarkable for no significant abnormalities Imaging:X ray results are stated below per my interpretation: Chest: 1 view: No infiltrate, no effusion, normal cardiac border. EKG:Per My Interpretation: Indication Chest Pain: NSR 89 bpm, qtc 433. No Ectopy. No Ischemia. Compared to EKG 02/09/18, no significant changes. Cardiac/Tele Monitoring: Cardiac Monitoring: An Order was placed for continuous cardiac monitoring. The monitor shows a rate of 89 with a normal sinus rhythm. Consults:Dr Clive MARX Hospitalist Plan: Disposition:Hospitalization. Referred to: PCP Condition: Good Prescriptions:[place] PDMP: n/a History of Present Illness:40 yr old male arrives for evaluation of chest pain. Patient with sudden onset substernal chest pain. Dull and sharp. Started 1 hour prior while at work. Radiates to left shoulder. Worse with exertion. Better with rest. 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 No trauma nor injuries. Denies syncope, palpitations, nausea, vomiting, abdominal pain, back pain (beyond normal), leg swelling, calf pain, fevers, chills, headache, jaw pain, nor other symptoms. Denies preivous cardiac issues nor work up. Grandfather with AR. patient admits history of obesity though denies other medical issues. Denies recent travel. No DVT/PE history in him nor family. ROS: See above HPI for pertinent positives & negatives. A total of 10 systems reviewed and were otherwise negative. Past Medical History:Morbid obesity. Per Chart: Metabolic syndrome, dyslipidemia, anxiety, Asthma, CHRISTIANO Past Surgical History:Adenoidectomy, Appendectomy Family History:Grandfather AR, Father HTN Social History:Smoker, Works at [employer], , uses alcohol Home Medications:None Allergies:None Vitals:Blood Pressure: 131/66, Pulse 88, RR 16, T 37.1C, O2 96% on RA Physical Exam: GENERAL: Patient is anxious appearing and in mild distress. EYES: No scleral icterus, unremarkable pupils. ENT: Mucous membranes moist, no nasal congestion. NECK: No masses appreciated, nomeningismus, trachea is midline. RESPIRATORY: No dyspnea. Clear to auscultation and equal bilaterally. No wheeze, no rhonchi. CARDIOVASCULAR: Regular rate and rhythm.No murmurs, rubs, gallops appreciated. GASTROINTESTINAL: Abdomen soft, non-tender, no peritonitis.Bowel sounds positive.No masses appreciated. BACK: No midline tenderness, no CVA tenderness EXTREMITIES: Normal motion all extremities, no cyanosis, no edema. NEUROLOGIC: Alert and oriented, no acute motor or sensory deficits, no focal weakness, cranial nerves grossly intact. SKIN: No rash, no jaundice, no diaphoresis. PSYCH: Appropriate GCS: 15 ED Course: Times/Reassessments: Resolution of pain with SLNTG, stable, no further complaints. Agrees with hospitalization. Rosas Cowart MD Past Med/Surg History Medical History (Updated 06/11/20 @ 06:51 by Rosas Cowart MD) Anxiety Arthralgia of multiple joints Asthma BMI 60.0-69.9, adult Dyslipidemia Erectile dysfunction Low testosterone Metabolic syndrome Morbid obesity Nocturnal hypoxia Prediabetes Severe sleep apnea Shortness of breath Vertigo Surgical History History of adenoidectomy History of appendectomy Family History Father Hypertension Grandfather Myocardial infarction Unknown Obese Brother Valvular heart disease Social History Smoking Status: Current every day smoker Tobacco Type: Cigarettes Age Started Using Tobacco: 19; packs per day: 0.5; Cigarettes Per Day: 10; Hx Alcohol Use: Yes Preferred Language: Azerbaijani Communication Ability: Effective marital status details: Current Living Situation: Spouse current occupational status: employed current occupation: [employer] Feels Safe at Home: Yes Childhood Exposure to Second-Hand Smoke: No Physical Activity Frequency: Does not Exercise Seatbelt Use: never Allergies Allergies Allergy/AdvReac Type Severity Reaction Status Date / Time No Known Allergies Allergy Verified 06/11/20 03:19 Home Meds Previous Rx's Medication Instructions Recorded sodium,potassium,mag sulfates 17.5 See Rx Instructions PO .COMPLEX 06/10/20 gram-3.13 gram-1.6 gram oral soln #354 ml Results & Data (ED) Vital Signs Vital Signs - 24 hr 06/11/20 03:17 06/11/20 04:24 06/11/20 06:00 Temperature 37.1 C Temperature Source Oral Pulse Rate 91 H Pulse Rate [Right Finger] 87 88 Respiratory Rate 18 16 16 Respiratory Depth Normal Normal Blood Pressure 148/85 H Blood Pressure [Right Arm] 132/65 131/66 Blood Pressure Mean 106 Blood Pressure Mean [Right Arm] 87 87 Blood Pressure Position Lying Blood Pressure Position [Right Arm] Lying Lying Pulse Oximetry 96 95 96 Oxygen Delivery Method Room Air Room Air Room Air Sepsis Recent Fever Within 48 Hours No Sepsis New/Unexplained Change in Mental Status No Sepsis Action Taken by Nursing No Action Required Laboratory Data Result diagrams: 06/11/20 03:39 06/11/20 03:39 Lab Results 06/11/20 06/11/20 Range/Units 03:39 03:39 WBC 10.29 (4.8-10.8) K/uL RBC 4.42 L (4.7-6.1) M/uL Hgb 13.0 L (14.0-18.0) g/dL Hct 39.9 L (42-52) % MCV 90.3 (80-100) fL MCH 29.4 (25-34) pg MCHC 32.6 (32-36) g/dL RDW Std Deviation 54.1 H (36.4-46.3) fL RDW Coeff of Amberly 16.3 H (11.5-14.5) % Plt Count 296 (130-400) K/uL MPV 10.1 (7.4-10.4) fL Immature Gran % (Auto) 0.7 % Neut % (Auto) 67.9 % Lymph % (Auto) 20.4 % Hand % (Auto) 8.5 % Eos % (Auto) 2.4 % Baso % (Auto) 0.1 % Neut # (Auto) 6.99 H (1.4-6.5) K/uL Lymph # (Auto) 2.10 (1.2-3.4) K/uL Hand # (Auto) 0.87 H (0.11-0.59) K/uL Eos # (Auto) 0.25 (0-0.5) K/uL Baso # (Auto) 0.01 (0-0.2) K/uL Immature Gran # (Auto) 0.07 H (0.00-0.02) K/uL Sodium 141 (136-145) mmol/L Potassium 3.7 (3.5-5.1) mmol/L Chloride 109 H (98-107) mmol/L Carbon Dioxide 28 (21-32) mmol/L Anion Gap 4.0 (3-11) BUN 14 (7-18) mg/dl Creatinine 1.00 (0.6-1.4) mg/dl Est Cr Clr Drug Dosing 187.6 ml/min Est GFR ( Amer) 107.9 Est GFR (Non-Af Amer) 93.1 BUN/Creatinine Ratio 13.9 (10-20) Glucose 87 (70-99) mg/dl Calcium 8.7 (8.5-10.1) mg/dl Total Bilirubin 0.2 (0.2-1) mg/dl Direct Bilirubin < 0.1 (0-0.2) mg/dl AST 15 (15-37) U/L ALT 33 (12-78) U/L Alkaline Phosphatase 109 (45-117) U/L Troponin I < 0.015 (0-0.045) ng/ml Total Protein 7.9 (6.4-8.2) gm/dl Albumin 3.1 L (3.4-5.0) gm/dl Administered Medications Discontinued Medications Nitroglycerin (Nitroglycerin Sl 0.4 Mg/Tab Tab) 0.4 mg SL NOW STA Stop: 06/11/20 03:26 Last Admin: 06/11/20 03:51 Dose: 0.4 mg Documented by: [id number] Nitroglycerin (Nitroglycerin 2% Ointment 30gm Tube) 1 inch EXT NOW ONE Stop: 06/11/20 04:16 Last Admin: 06/11/20 04:29 Dose: 1 inch Documented by: [id number] Discharge Plan Visit Data Chief Complaint: Chest Pain Stated Complaint: CHEST PAIN ED Provider: Rosas Cowart Discharge Problem: Substernal chest pain Forms Stand Alone Forms: My [facility] [employer] Prescriptions Prescriptions: No Action Suprep Bowel Prep Kit 17.5-3.13-1.6 gram recon soln See Rx Instructions PO .COMPLEX Qty: 354 RF: 0
[2020-06-11] MEDS ORDERED: NITROGLYCERIN 2% OINTMENT 30GM TUBE EXT ONE (04:15)
[2020-06-11 04:29] LABS: Basophils # (auto) 0.01 K/uL (0-0.2); Basophils % (auto) 0.1 %; Eosinophils # (auto) 0.25 K/uL (0-0.5); Eosinophils % (auto) 2.4 %; Hematocrit (blood only) 39.9 % (42-52); Immature Granulocytes # (auto) 0.07 K/uL (0.00-0.02); Immature Granulocytes % (auto) 0.7 %; Lymphocytes % (auto) 20.4 %; Mean Corpuscular Hemoglobin 29.4 pg (25-34); Mean Corpuscular Hgb Conc 32.6 g/dL (32-36); Mean Corpuscular Volume 90.3 fL (80-100); Mean Platelet Volume 10.1 fL (7.4-10.4); Monocytes # (auto) 0.87 K/uL (0.11-0.59); Monocytes % (auto) 8.5 %; Neutrophils # (auto) 6.99 K/uL (1.4-6.5); Neutrophils % (auto) 67.9 %; Platelet Count 296 K/uL (130-400); RDW Coefficient of Variation 16.3 % (11.5-14.5); RDW Standard Deviation 54.1 fL (36.4-46.3); Red Blood Count 4.42 M/uL (4.7-6.1); White Blood Count 10.29 K/uL (4.8-10.8)
[2020-06-11 04:49] LABS: Alanine Aminotransferase 33 U/L (12-78); Albumin Level 3.1 gm/dl (3.4-5.0); Aspartate Aminotransferase 15 U/L (15-37); BUN Creatinine Ratio 13.9 (10-20); Bilirubin Direct < 0.1 mg/dl (0-0.2); Blood Urea Nitrogen 14 mg/dl (7-18); Calcium 8.7 mg/dl (8.5-10.1); Carbon Dioxide 28 mmol/L (21-32); Chloride 109 mmol/L (98-107); Creatinine Clr Calc Pharmacy 187.6 ml/min; Est GFR (African American) 107.9; Est GFR (Non-African American) 93.1; Glucose 87 mg/dl (70-99); Potassium 3.7 mmol/L (3.5-5.1); Sodium 141 mmol/L (136-145)
[2020-06-11 04:54] LABS: Alkaline Phosphatase 109 U/L (45-117); Bilirubin,Total 0.2 mg/dl (0.2-1); Total Protein 7.9 gm/dl (6.4-8.2); Troponin I < 0.015 ng/ml (0-0.045)
--- NOTE | 2020-06-11 06:10 | History & Physical Report ---
Date of Service June 11, 2020 Assessment & Plan (1) Chest pain: Mr. Monsalve is a 40yo M with a PMHx of obesity who presents with an episode of chest pain. He was on his break from his job at [employer] at approximately 2:30 in the morning. Chest pain with cardiac risk factors, no ischemic signs on admitting blood work/EKG Patient morbidly obese, prediabetic on Metformin for weight loss, family history of heart attack in 40s, daily tobacco use Chest pain resolved with nitro, received full dose aspirin Chest pain resolved at time of assessment - EKG with partial right bundle but no ischemic changes Troponin negative on admission Trend troponins x3 Follow clinically TTE pending Lipids pending, repeat A1c pending Prediabetes On metformin prior to admission, patient reports for weight loss Glucose 89 on admission Daily glucose checks, sliding scale insulin if needed for hyperglycemia Severe sleep apnea Patient counseled on the effect of sleep apnea and pulmonary hypertension on heart stress and likely association with his right bundle branch block. Patient reports he does not like and does not wear his CPAP at home due to the pressure feeling of not being able to exhale. Amenable to trying CPAP in the hospital with adjusted pressure settings CPAP nightly Morbid obesity Skin ulcerations underlying breast and pannus tissue Wound care consulted DVT prophylaxis: Heparin weight adjusted Diet: Regular Disposition: Medical/surgical with telemetry CODE STATUS: Full code (2) Severe sleep apnea: (3) Metabolic syndrome: (4) Morbid obesity: History of Present Illness Chief Complaint: Chest pain Primary Care Provider: Jamarcus Cramer MD Mr. Monsalve is a 40yo M with a PMHx of obesity who presents with an episode of chest pain. He was on his break from his job at [employer] at approximately 2:30 in the morning. He was sitting in his car when he developed sudden onset crushing chest pain. He describes this as a 10 out of 10 like nothing he is ever felt before. He reports he had some numbness in his left hand with this episode. He was slightly short of breath but not diaphoretic. He has not had chest pain at rest or with exertion leading up to this episode. His episode improved when EMS arrived and gave him nitro. He recieved nitro and a full dose aspirin. At time of assessment his chest pain has resolved, although he notes he has been getting intermittent 'pangs' of slight discomfort since. he was seen by cardiology 'a few years ago' but palpitations which resolved. he also had a dobutamine stress test in 2017 when he was admitted for vertigo, but pt reports he is not sure why they did the stress test. Stress test was nondiagnostic, but nonischemic at 75% AAMHR. Reports he was diagnosed with sleep apnea, but does not wear the mask because it is uncomfortable and feels like "he cannot breathe with a positive pressure ". He has a 1 pack/day tobacco use of 20 years. Denies alcohol use. Denies recreational drug use. Social: Lives at home with his and 2 children's. No recent sick contacts. Had pneumonia 1 month ago, Covid negative. Medications: Reviewed. Metformin 2 tablets in the morning for weight loss, but reports he does not know the dose in milligrams. No antihypertensives. Surgical history: Reviewed Medication allergies: Denied CODE STATUS: Full code Allergies Allergy/AdvReac Type Severity Reaction Status Date / Time No Known Allergies Allergy Verified 06/11/20 03:19 Home Medications Home Medications Medication Instructions Recorded Confirmed Type sodium,potassium,mag sulfates 17.5 See Rx Instructions PO .COMPLEX 06/10/20 06/11/20 Rx gram-3.13 gram-1.6 gram oral soln #354 ml aspirin 81 mg PO QAM 30 Days #30 tab 06/11/20 Rx Past Med/Surg History Medical History (Updated 06/11/20 @ 06:51 by Rosas Cowart MD) Anxiety Arthralgia of multiple joints Asthma BMI 60.0-69.9, adult Dyslipidemia Erectile dysfunction Low testosterone Metabolic syndrome Morbid obesity Nocturnal hypoxia Prediabetes Severe sleep apnea Shortness of breath Vertigo Surgical History History of adenoidectomy History of appendectomy Family History Father Hypertension Grandfather Myocardial infarction Unknown Obese Brother Valvular heart disease Social History Smoking Status: Heavy tobacco smoker Tobacco Type: Cigarettes Age Started Using Tobacco: 19; packs per day: 0.5; Cigarettes Per Day: 10; Tobacco Cessation Education Requested by Patient: No Hx Alcohol Use: No Hx Substance Use: No Preferred Language: Martiniquais Communication Ability: Effective 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 Agreeable to try CPAP in hospital Review of Systems Review of Systems: All systems reviewed & are unremarkable except as noted in HPI & below Physical Exam Physical Exam: General: A&Ox3. NAD. Cooperative. Morbidly obese. HEENT: Atraumatic, normocephalic. Pulm: CTAB A&P. -wheezes, -rales, -rhonchi. Symmetrical chest rise. No increase work of breathing. No respiratory distress. Cardiac: RRR, -mrg. Radial pulses intact and symmetrical. No JVD. Extremity is obese, but without pitting edema. Thorax: Skin folds of breasts and pannus with diffuse underlying irritation and ulceration. No purulence. Abdominal: Nontender, nondistended, soft. BS present. Obese. CRANIAL NERVES: II: Pupils equal and reactive, no relative afferent pupillary defect, no VF cuts III, IV, : EOM intact, no gaze preference or deviation, no nystagmus. V: normal sensation in V1, V2, and V3 segments bilaterally VII: no asymmetry, no nasolabial fold flattening VIII: normal hearing to speech IX, X: normal palatal elevation, no uvular deviation XI: 5/5 head turn and 5/5 shoulder shrug bilaterally XII: midline tongue protrusion Results & Data Results & Data ([facility]) Vital Signs (Past 12 Hours) Vital Signs Temp Pulse Pulse Resp BP BP Pulse Ox 06/11/20 04:24 87 16 132/65 95 06/11/20 03:17 37.1 C 91 H 18 148/85 H 96 Code Status & VTE Plan VTE Prophylaxis Plan VTE Prophylaxis will be ordered: Yes Supervising Physician Co-Signing Physician Notes Attending addendum: I have physically seen this patient, have supervised the medical residents activities, and agree with the H&P unless as otherwise noted. Assessment and Plan: Exertional chest pain- The patient will be admitted to telemetry for serial cardiac enzymes, serial EKG's, cardiac rhythm monitoring and a 2-D echocardiogram with Dopplers. Risk factors: Morbid obesity, prediabetes, family history, tobacco use. Tobacco cessation counseling Check a fasting lipid panel and hemoglobin A1c Prediabetes- Hold metformin until after discharge Placed on Accu-Cheks before meals and at bedtime with NovoLog coverage per scale Severe sleep apnea- Continue CPAP Needs to work on weight reduction Remaining orders and notations as noted Resident Activity Tracking Resident Involvement: Resident Care Provided Care Provided: Adult Hospital Medicine
--- NOTE | 2020-06-11 07:39 | XRay Report ---
SINGLE VIEW CHEST CLINICAL HISTORY: Atypical chest pain. FINDINGS: An AP, portable, upright chest radiograph is compared to study dated 05/17/2020. The cardiom ediastinal silhouette is unremarkable. There is mild bibasilar atelectasis. The lungs and pleural spa candi are otherwise clear. No pneumothorax is seen. The bony thorax is grossly intact. IMPRESSION: No active disease in the chest. ACT 112: Negative or not required by law. Electronically signed by: Dave Mckeon M.D. 06/11/2020 7:37 AM
--- NOTE | 2020-06-11 08:25 | Electrocardiogram Report ---
Test Reason : Blood Pressure : / mmHG Vent. Rate : 089 BPM Atrial Rate : 089 BPM P-R Int : 136 ms QRS Dur : 098 ms QT Int : 356 ms P-R-T Axes : 027 034 015 degrees QTc Int : 433 ms Normal sinus rhythm Incomplete right bundle branch block Borderline ECG When compared with ECG of 09-FEB-2018 22:06, No significant change was found Confirmed by Austin Muniz ([id number]) on 06/11/2020 8:25:28 AM Referred By: REFERRED SELF Confirmed By:Austin Muniz
[2020-06-11] MEDS ORDERED: NITROGLYCERIN SL 0.4 MG/TAB TAB SL PRN (09:26)
[2020-06-11] MEDS ORDERED: ASPIRIN 81 MG ECTAB PO SCH (09:26)
[2020-06-11] MEDS ORDERED: ACETAMINOPHEN 325 MG TAB PO PRN (09:26)
[2020-06-11 10:00] LABS: Estimated Average Glucose 143 mg/dl; Hemoglobin A1C 6.6 % (4.5-5.6)
[2020-06-11] MEDS ORDERED: INFLUENZA VIRUS QUAD VACCINE 0.5 ML SYR IM ONE (10:08)
[2020-06-11] MEDS ORDERED: INFLUENZA ADMINISTRATION CHARGE ONE (10:08)
[2020-06-11] MEDS: HEPARIN SOD 5,000 UNIT/0.5 ML VIAL SQ SCH ×2 (10:18→14:49)
[2020-06-11 10:31] LABS: Chol HDL Ratio 3; Cholesterol 121 mg/dl (0-200); HDL Cholesterol 45 mg/dl; LDL Cholesterol Calculated 56 mg/dl; Triglycerides 98 mg/dl (0-150); VLDL Cholesterol 20 mg/dl
--- NOTE | 2020-06-11 10:50 | XCELERA ---
[id number]
[2020-06-11 16:07] VITALS: BP 118/71; PULSE 77; TEMP 97.3; O2SAT 98
--- NOTE | 2020-06-11 21:34 | Billing Data ---
Date of Service June 11, 2020 Coding Level of Care Code 95767 OBS Care - Level 3
--- NOTE | 2020-06-12 09:03 | Discharge Summary ---
Date of Service June 11, 2020 Admission HPI Per Admitting Provider Mr. Monsalve is a 40yo M with a PMHx of obesity who presents with an episode of chest pain. He was on his break from his job at [employer] at approximately 2:30 in the morning. He was sitting in his car when he developed sudden onset crushing chest pain. He describes this as a 10 out of 10 like nothing he is ever felt before. He reports he had some numbness in his left hand with this episode. He was slightly short of breath but not diaphoretic. He has not had chest pain at rest or with exertion leading up to this episode. His episode improved when EMS arrived and gave him nitro. He recieved nitro and a full dose aspirin. At time of assessment his chest pain has resolved, although he notes he has been getting intermittent 'pangs' of slight discomfort since. he was seen by cardiology 'a few years ago' but palpitations which resolved. he also had a dobutamine stress test in 2017 when he was admitted for vertigo, but pt reports he is not sure why they did the stress test. Stress test was nondiagnostic, but nonischemic at 75% AAMHR. Reports he was diagnosed with sleep apnea, but does not wear the mask because it is uncomfortable and feels like "he cannot breathe with a positive pressure ". He has a 1 pack/day tobacco use of 20 years. Denies alcohol use. Denies recreational drug use. Social: Lives at home with his and 2 children's. No recent sick contacts. Had pneumonia 1 month ago, Covid negative. Medications: Reviewed. Metformin 2 tablets in the morning for weight loss, but reports he does not know the dose in milligrams. No antihypertensives. Surgical history: Reviewed Medication allergies: Denied CODE STATUS: Full code Principal Diagnosis Chest pain Discharge Exam Constitutional well developed, + morbidly obese and cooperative; no acute distress Neck trachea midline, no thyromegaly + thick neck Respiratory normal respiratory effort, lungs clear to auscultation Cardiovascular RRR, no murmur, no edema Gastrointestinal (Abdomen) normal bowel sounds, soft, nontender, no hepatosplenomegaly Musculoskeletal no cyanosis or clubbing, extremities motor strength 5/5 Skin no rashes, warm and dry + rash (yeast in skin folds) Neurologic patellar DTR's 2+ bilat, sensation intact and PERRL, EOMI, accommodation nl, no face palsy, no dysarthria Psychiatric A+Ox3, euthymic affect Lymphatic no cervical or axillary lymphadenopathy Discharge Data Allergies Allergy/AdvReac Type Severity Reaction Status Date / Time No Known Allergies Allergy Verified 06/11/20 03:19 Consultations 06/11/20 05:05 ED Decision to Admit Stat Hospital Course (1) Chest pain: occurred at 230am while at work at [employer], non-exertional no further chest pain troponin negative x 3 sets, echocardiogram with EF 65% and no wall motion changes EKG with incomplete RBB but no ischemic changes no changes seen on CXR patient feels better, wants to go home discussed with dental surgery doctor, will recommend outpatient stress echo to screen for coronary disease recommend he take daily aspirin 81mg recommend that he does not exert himself until he has the stress test (2) Severe sleep apnea: needs to use CPAP (3) Metabolic syndrome: follow up with PCP (4) Morbid obesity: counseled on weight loss Total Time Total Time Spent Total Time Spent (In Minutes): 20 Total Time Includes: Examination of the Patient, Discharge Planning, Medication Reconciliation and Communication With Other Providers Discharge Plan Discharge Items Patient Disposition: Home - Self-Care Reason For Visit: CHEST PAIN Discharge Diagnosis: Chest pain Condition on Discharge: Good Goals: follow up for stress test Activity: Per Instructions section Bathing: No limitations Sexual Activity: Wait until after follow-up appointment Exercise/Sports: Wait until after follow-up appointment Driving/Machine Use: No limitations Weightbearing: Full weightbearing Non-emergency contact: Primary Care Provider Call non-emergency contact if: you have any medication questions and your symptoms worsen Follow-up/Referrals: Shyam Cramer MD [Primary Care Provider] - (this week, referral for stress echo as outpatient) Diet: Heart Healthy Addtl Attending Provider Instructions: Medications: recommend taking aspirin 81mg daily over the counter Chest pain: EKG without any ischemic changes echocardiogram shows ejection fraction is normal, no wall motion abnormalities troponin is negative for three sets which rules out heart attack I spoke with cardiology, they would recommend an outpatient stress test until you get the stress test, I would advise against exerting yourself no sexual activity, no exercise Pending Studies at Discharge: No Stand-Alone Forms: My [employer], Smoking Cessation Medications and DC Order Prescriptions: New aspirin 81 mg Tablet,Delayed Release (Dr/Ec) 81 mg PO QAM 30 Days Qty: 30 RF: 3 Continued Suprep Bowel Prep Kit 17.5-3.13-1.6 gram recon soln See Rx Instructions PO .COMPLEX Qty: 354 RF: 0 Discharge Orders: Discharge Order (Routine); Ordered 06/11/20 Ordered By: Sushil Recinos Admission Data Admit Date/Time: 06/11/20 06:02 Attending Provider: Júnior Duffy Admit Provider: Júnior Duffy Primary Care Provider: Shyam Cramer Other Providers: Júnior Duffy Other Interventions: Discharge Summary Assessment (RN) Last Done: 06/11/20 15:23 Coding Level of Care Code 06546 OBS Care - Discharge Diagnoses Chest pain R07.9 Severe sleep apnea G47.30 Metabolic syndrome E88.81 Morbid obesity E66.01
== END 2020-06-11 16:49 | disposition home or self-care (01) ==
LOC: ED 03:11 → 2N 03:11

== ENCOUNTER 2021-12-29 06:49 | Inpatient (IN) ==
[2021-12-29] MEDS ORDERED: METOPROLOL TARTRATE 1 MG/ML VIAL IV STA (07:06)
[2021-12-29] MEDS: SODIUM CHLORIDE 0.9% 500 ML IV SCH ×2 (07:17→14:59)
[2021-12-29 07:20] LABS: Basophils # (auto) 0.01 K/uL (0-0.2); Basophils % (auto) 0.1 %; Eosinophils # (auto) 0.17 K/uL (0-0.5); Eosinophils % (auto) 1.8 %; Hematocrit (blood only) 38.2 % (42-52); Hemoglobin 12.5 g/dL (14.0-18.0); Immature Granulocytes # (auto) 0.03 K/uL (0.00-0.02); Immature Granulocytes % (auto) 0.3 %; Lymphocytes % (auto) 22.2 %; Mean Corpuscular Hemoglobin 29.3 pg (25-34); Mean Corpuscular Hgb Conc 32.7 g/dL (32-36); Mean Corpuscular Volume 89.5 fL (80-100); Mean Platelet Volume 9.7 fL (7.4-10.4); Monocytes # (auto) 0.67 K/uL (0.11-0.59); Monocytes % (auto) 7.1 %; Neutrophils # (auto) 6.49 K/uL (1.4-6.5); Neutrophils % (auto) 68.5 %; Platelet Count 331 K/uL (130-400); RDW Coefficient of Variation 16.3 % (11.5-14.5); RDW Standard Deviation 53.1 fL (36.4-46.3); Red Blood Count 4.27 M/uL (4.7-6.1); White Blood Count 9.47 K/uL (4.8-10.8)
--- NOTE | 2021-12-29 07:27 | Emergency Department Note ---
Impression & Plan Atrial fibrillation with rapid ventricular response, SOB (shortness of breath), Retrosternal chest pain ED Provider Note INFORMANT: Patient ED PROVIDER(S): Naveen Norman MD CHIEF COMPLAINT: Chest pain PLAN: Disposition: Admitted Condition: Good Outpatient prescription management: none Referral: None MEDICAL DECISION MAKING: Patient presented because of chest pain and was found to be in A. fib with RVR. He had nitro and aspirin as an outpatient. His ECG did not show any ischemia. He was given IV metoprolol and his heart rate decreased to around 100 bpm. He did feel better with this. The patient had a normal troponin. Remainder of his labs are unremarkable except his D-dimer was elevated. I did order chest CT however the patient's weight limit exceeds that for the CT machine. Consultation was made with the [facility] hospitalist. Case was discussed. Anticoagulation will be held until further evaluation by hospitalist service. Patient was evaluated by the hospitalist as well as [facility] cardiology. They did perform a repeat troponin and this was negative. They did admit the patient here for further management. Triage Nursing notes reviewed and agree them. Vital Signs: reviewed and remarkable for tachycardia Differential diagnosis: Cardiac ischemia, aortic dissection, pulmonary embolism, pneumothorax, pneumonia, pericarditis, myocarditis, esophageal rupture, GERD, cholecystitis, pancreatitis, musculoskeletal, as well as other pathologies. Diagnostics interpreted by me: ECG: Lead ECG reveals atrial fibrillation with rapid ventricular response at [address] elevation or depression. Nonspecific ST. Normal QRS. Cardiac Monitoring: Cardiac monitoring ordered by me: The patient was placed on continuous cardiac monitoring and observed. It revealed atrial fibrillation with rapid ventricular response at 145 beats per minute. Imaging studies: Chest x-ray. Findings: A chest x-ray was performed and revealed no pneumothorax, effusion, infiltrate, pulmonary edema, free air under the diaphragm, or wide mediastinum. Impression: No acute disease. HPI: The patient is a 41 year old male who presents to the Emergency Room with complaints of chest pain, retrosternal. This started this morning and is improved. The patient also notes the following associated symptoms, shortness of breath, palpitations. Patient states he felt well last night. No prior history of the same. EMS was summoned. The patient has aspirin and nitroglycerin for relieving factors. Current pain is rated as 2-3/10. Patient states pain was a 6 out of 10.Pt denies LOC, headache, fevers, chills, diaphoresis, visual changes, neck pain, nausea, vomiting, abdominal pain, back pain, melena, hematochezia, urinary symptoms, numbness, weakness, lymphadenopathy, rash, or other complaints. ROS: See above HPI for pertinent positives & negatives. A total of 10 systems reviewed and were otherwise negative. PAST MEDICAL HISTORY:See Below , diabetes PAST SURGICAL HISTORY:See Below, appendectomy FAMILY HISTORY:See below, patient denies family cardiac history SOCIAL HISTORY:See Below, smoker HOME MEDICATIONS:See Below ALLERGIES:See Below VITALS:See Below PHYSICAL EXAMINATION: GENERAL: Awake, tired appearing, in no distress HENT: Normocephalic, atraumatic. Oropharynx unremarkable. EYES: Normal conjunctiva. Sclera non-icteric. NECK: Inspection normal. Non-tender. Supple. No nuchal rigidity. FROM. No masses. RESPIRATORY: Clear to auscultation. No wheezes. No rales. Normal respiratory effort. CARDIAC: Tachycardic rate. Regular rhythm. No murmurs. No rubs. Extremities warm and well perfused. Pulses equal. No JVD. GI: Soft, non-distended. No tenderness to palpation. No rebound or guarding. No masses. RECTAL: Deferred. MUSCULOSKELETAL: Atraumatic. Chest examination reveals no tenderness. The back is symmetrical on inspection without obvious abnormality. There is no CVA tenderness to palpation. No joint edema. LOWER EXTREMITIES: Calves are equal size bilaterally and non-tender. No edema. No discoloration. NEURO: Normal sensorium. No sensory or motor deficits noted. SKIN: No rash or jaundice noted. Naveen Norman MD Past Med/Surg History Medical History Anemia BMI 60.0-69.9, adult BMI currently 66.4 Dyslipidemia Low testosterone Metabolic syndrome Morbid obesity Nocturnal hypoxia Severe sleep apnea pt does not use CPAP as ordered Smokes 1 pack of cigarettes per day Type II diabetes mellitus Surgical History History of adenoidectomy History of appendectomy History of wisdom tooth extraction Family History Father Hypertension Grandfather Myocardial infarction Unknown Obese Brother Valvular heart disease Other No family history of adverse response to anesthesia Social History Smoking Status: Current every day smoker Tobacco Type: Cigarettes Age Started Using Tobacco: 19; packs per day: 0.5; Cigarettes Per Day: 10; Second Hand Exposure: No; Hx Alcohol Use: No Hx Substance Use: No Preferred Language: Welsh Communication Ability: Effective 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 Beliefs That Will Affect Care: None marital status details: Current Living Situation: Significant Other Current Living Situation Comment: Lives with and 2 kids current occupational status: employed current occupation: [employer] Feels Safe at Home: Yes Safety Concerns: Feels Safe At This Time Childhood Exposure to Second-Hand Smoke: No Physical Activity Frequency: Does not Exercise Seatbelt Use: never Assistive Devices: Glasses Allergies Allergies Allergy/AdvReac Type Severity Reaction Status Date / Time No Known Allergies Allergy Verified 11/02/21 13:40 Home Meds Home Medications Medication Instructions Recorded Confirmed albuterol sulfate 2.5 mg INHALATION .COMPLEX PRN 09/01/21 12/29/21 Previous Rx's Medication Instructions Recorded albuterol sulfate 90 mcg/actuation 1 puff INH Q6H PRN #18 gm 12/16/20 aerosol inhaler (Ventolin HFA) metformin 500 mg tablet 500 mg PO BID #60 tab 11/07/21 Results & Data (ED) Vital Signs Vital Signs - 24 hr 12/29/21 06:56 12/29/21 07:17 12/29/21 07:23 Temperature 37.1 C Temperature Source Oral Pulse Rate 132 H 126 H 130 H Pulse Rate [Apical] 132 H Pulse Rate from SpO2 Sensor 106 H Pulse Rhythm Irregular Pulse Rhythm [Apical] Regular Pulse Strength Normal Pulse Strength [Apical] Normal Respiratory Rate 18 14 Respiratory Effort / Characteristics Non-Labored Spontaneous Respiratory Depth Normal Respiratory Pattern Regular Blood Pressure 109/78 109/78 124/74 Blood Pressure [Right Arm] 109/78 Blood Pressure Mean 88 90 Blood Pressure Mean [Right Arm] 88 Blood Pressure Position Lying Blood Pressure Position [Right Arm] Lying Pulse Oximetry 97 98 Oxygen Delivery Method Room Air Room Air Sepsis Recent Fever Within 48 Hours No Sepsis New/Unexplained Change in Mental Status No Sepsis Action Taken by Nursing No Action Required 12/29/21 07:30 12/29/21 07:45 12/29/21 08:00 Temperature Temperature Source Pulse Rate 125 H 111 H 123 H Pulse Rate [Apical] Pulse Rate from SpO2 Sensor 113 H 168 H 137 H Pulse Rhythm Pulse Rhythm [Apical] Pulse Strength Pulse Strength [Apical] Respiratory Rate 18 18 20 Respiratory Effort / Characteristics Respiratory Depth Respiratory Pattern Blood Pressure 126/81 118/76 143/74 H Blood Pressure [Right Arm] Blood Pressure Mean 96 90 97 Blood Pressure Mean [Right Arm] Blood Pressure Position Blood Pressure Position [Right Arm] Pulse Oximetry 92 94 94 Oxygen Delivery Method Room Air Room Air Room Air Sepsis Recent Fever Within 48 Hours Sepsis New/Unexplained Change in Mental Status Sepsis Action Taken by Nursing 12/29/21 08:15 12/29/21 08:30 12/29/21 08:45 Temperature Temperature Source Pulse Rate 126 H 102 H 102 H Pulse Rate [Apical] Pulse Rate from SpO2 Sensor 110 H 77 Pulse Rhythm Pulse Rhythm [Apical] Pulse Strength Pulse Strength [Apical] Respiratory Rate 22 18 21 Respiratory Effort / Characteristics Respiratory Depth Respiratory Pattern Blood Pressure 119/79 93/78 L 113/90 Blood Pressure [Right Arm] Blood Pressure Mean 92 83 97 Blood Pressure Mean [Right Arm] Blood Pressure Position Blood Pressure Position [Right Arm] Pulse Oximetry 93 93 94 Oxygen Delivery Method Room Air Room Air Room Air Sepsis Recent Fever Within 48 Hours Sepsis New/Unexplained Change in Mental Status Sepsis Action Taken by Nursing 12/29/21 09:15 12/29/21 09:31 12/29/21 09:45 Temperature Temperature Source Pulse Rate 102 H 111 H 108 H Pulse Rate [Apical] Pulse Rate from SpO2 Sensor 165 H 209 H 101 H Pulse Rhythm Pulse Rhythm [Apical] Pulse Strength Pulse Strength [Apical] Respiratory Rate 16 18 16 Respiratory Effort / Characteristics Respiratory Depth Respiratory Pattern Blood Pressure 106/85 117/92 108/83 Blood Pressure [Right Arm] Blood Pressure Mean 92 100 91 Blood Pressure Mean [Right Arm] Blood Pressure Position Blood Pressure Position [Right Arm] Pulse Oximetry 96 96 94 Oxygen Delivery Method Room Air Room Air Room Air Sepsis Recent Fever Within 48 Hours Sepsis New/Unexplained Change in Mental Status Sepsis Action Taken by Nursing 12/29/21 10:01 12/29/21 10:15 12/29/21 10:46 Temperature Temperature Source Pulse Rate 103 H 98 H 109 H Pulse Rate [Apical] Pulse Rate from SpO2 Sensor 104 H 159 H 117 H Pulse Rhythm Pulse Rhythm [Apical] Pulse Strength Pulse Strength [Apical] Respiratory Rate 22 18 22 Respiratory Effort / Characteristics Respiratory Depth Respiratory Pattern Blood Pressure 114/87 140/80 116/68 Blood Pressure [Right Arm] Blood Pressure Mean 96 100 84 Blood Pressure Mean [Right Arm] Blood Pressure Position Blood Pressure Position [Right Arm] Pulse Oximetry 95 92 99 Oxygen Delivery Method Room Air Room Air Room Air Sepsis Recent Fever Within 48 Hours Sepsis New/Unexplained Change in Mental Status Sepsis Action Taken by Nursing 12/29/21 11:15 12/29/21 11:30 12/29/21 12:30 Temperature Temperature Source Pulse Rate 102 H 100 H 111 H Pulse Rate [Apical] Pulse Rate from SpO2 Sensor 91 H 99 H Pulse Rhythm Pulse Rhythm [Apical] Pulse Strength Pulse Strength [Apical] Respiratory Rate 24 18 16 Respiratory Effort / Characteristics Respiratory Depth Respiratory Pattern Blood Pressure 123/96 131/88 117/79 Blood Pressure [Right Arm] Blood Pressure Mean 105 102 91 Blood Pressure Mean [Right Arm] Blood Pressure Position Blood Pressure Position [Right Arm] Pulse Oximetry 97 94 96 Oxygen Delivery Method Room Air Room Air Room Air Sepsis Recent Fever Within 48 Hours Sepsis New/Unexplained Change in Mental Status Sepsis Action Taken by Nursing Laboratory Data Result diagrams: 12/29/21 06:58 12/29/21 06:58 Lab Results 12/29/21 12/29/21 12/29/21 Range/Units 06:58 06:58 06:58 WBC 9.47 (4.8-10.8) K/uL RBC 4.27 L (4.7-6.1) M/uL Hgb 12.5 L (14.0-18.0) g/dL Hct 38.2 L (42-52) % MCV 89.5 (80-100) fL MCH 29.3 (25-34) pg MCHC 32.7 (32-36) g/dL RDW Std Deviation 53.1 H (36.4-46.3) fL RDW Coeff of Amberly 16.3 H (11.5-14.5) % Plt Count 331 (130-400) K/uL MPV 9.7 (7.4-10.4) fL Immature Gran % (Auto) 0.3 % Neut % (Auto) 68.5 % Lymph % (Auto) 22.2 % [place] % (Auto) 7.1 % Eos % (Auto) 1.8 % Baso % (Auto) 0.1 % Neut # (Auto) 6.49 (1.4-6.5) K/uL Lymph # (Auto) 2.10 (1.2-3.4) K/uL [place] # (Auto) 0.67 H (0.11-0.59) K/uL Eos # (Auto) 0.17 (0-0.5) K/uL Baso # (Auto) 0.01 (0-0.2) K/uL Immature Gran # (Auto) 0.03 H (0.00-0.02) K/uL PT 10.7 (9.0-12.0) Seconds INR 1.0 (0.9-1.1) APTT 28.5 (21.0-31.0) Seconds PTT Ratio 1.0 D-Dimer (0-500) ug/L FEU Sodium 137 (136-145) mmol/L Potassium 3.9 (3.5-5.1) mmol/L Chloride 107 (98-107) mmol/L Carbon Dioxide 24 (21-32) mmol/L Anion Gap 6 (3-11) BUN 14 (6-23) mg/dl Creatinine 0.84 (0.6-1.4) mg/dl Est Cr Clr Drug Dosing 225.2 ml/min Est GFR ( Amer) 125.2 ml/min Est GFR (Non-Af Amer) 108.0 ml/min BUN/Creatinine Ratio 16.7 (10-20) Glucose 142 H (70-99(Fasting)) mg/dl Calcium 9.0 (8.5-10.1) mg/dl Magnesium 1.9 (1.7-2.4) mg/dl Total Bilirubin 0.3 (0.2-1.0) mg/dl AST 10 L (13-39) U/L ALT 18 (7-52) U/L Alkaline Phosphatase 82 (34-104) U/L Troponin I High Sens 5.9 (0-20) pg/ml Total Protein 7.5 (6.0-8.3) gm/dl Albumin 3.6 (3.4-5.0) gm/dl Globulin 3.9 (2.5-4.0) gm/dl Albumin/Globulin Ratio 0.9 (0.9-2) Lipase 17 (11-82) U/L TSH (0.300-4.500) uIu/ml SARS-CoV-2, RNA, NAAT (NEGATIVE) 12/29/21 12/29/21 12/29/21 Range/Units 06:58 06:58 07:21 WBC (4.8-10.8) K/uL RBC (4.7-6.1) M/uL Hgb (14.0-18.0) g/dL Hct (42-52) % MCV (80-100) fL MCH (25-34) pg MCHC (32-36) g/dL RDW Std Deviation (36.4-46.3) fL RDW Coeff of Amberly (11.5-14.5) % Plt Count (130-400) K/uL MPV (7.4-10.4) fL Immature Gran % (Auto) % Neut % (Auto) % Lymph % (Auto) % [place] % (Auto) % Eos % (Auto) % Baso % (Auto) % Neut # (Auto) (1.4-6.5) K/uL Lymph # (Auto) (1.2-3.4) K/uL [place] # (Auto) (0.11-0.59) K/uL Eos # (Auto) (0-0.5) K/uL Baso # (Auto) (0-0.2) K/uL Immature Gran # (Auto) (0.00-0.02) K/uL PT (9.0-12.0) Seconds INR (0.9-1.1) APTT (21.0-31.0) Seconds PTT Ratio D-Dimer 2400 H* (0-500) ug/L FEU Sodium (136-145) mmol/L Potassium (3.5-5.1) mmol/L Chloride (98-107) mmol/L Carbon Dioxide (21-32) mmol/L Anion Gap (3-11) BUN (6-23) mg/dl Creatinine (0.6-1.4) mg/dl Est Cr Clr Drug Dosing ml/min Est GFR ( Amer) ml/min Est GFR (Non-Af Amer) ml/min BUN/Creatinine Ratio (10-20) Glucose (70-99(Fasting)) mg/dl Calcium (8.5-10.1) mg/dl Magnesium (1.7-2.4) mg/dl Total Bilirubin (0.2-1.0) mg/dl AST (13-39) U/L ALT (7-52) U/L Alkaline Phosphatase (34-104) U/L Troponin I High Sens (0-20) pg/ml Total Protein (6.0-8.3) gm/dl Albumin (3.4-5.0) gm/dl Globulin (2.5-4.0) gm/dl Albumin/Globulin Ratio (0.9-2) Lipase (11-82) U/L TSH 2.234 (0.300-4.500) uIu/ml SARS-CoV-2, RNA, NAAT NEGATIVE (NEGATIVE) 12/29/21 Range/Units 11:42 WBC (4.8-10.8) K/uL RBC (4.7-6.1) M/uL Hgb (14.0-18.0) g/dL Hct (42-52) % MCV (80-100) fL MCH (25-34) pg MCHC (32-36) g/dL RDW Std Deviation (36.4-46.3) fL RDW Coeff of Amberly (11.5-14.5) % Plt Count (130-400) K/uL MPV (7.4-10.4) fL Immature Gran % (Auto) % Neut % (Auto) % Lymph % (Auto) % [place] % (Auto) % Eos % (Auto) % Baso % (Auto) % Neut # (Auto) (1.4-6.5) K/uL Lymph # (Auto) (1.2-3.4) K/uL [place] # (Auto) (0.11-0.59) K/uL Eos # (Auto) (0-0.5) K/uL Baso # (Auto) (0-0.2) K/uL Immature Gran # (Auto) (0.00-0.02) K/uL PT (9.0-12.0) Seconds INR (0.9-1.1) APTT (21.0-31.0) Seconds PTT Ratio D-Dimer (0-500) ug/L FEU Sodium (136-145) mmol/L Potassium (3.5-5.1) mmol/L Chloride (98-107) mmol/L Carbon Dioxide (21-32) mmol/L Anion Gap (3-11) BUN (6-23) mg/dl Creatinine (0.6-1.4) mg/dl Est Cr Clr Drug Dosing ml/min Est GFR ( Amer) ml/min Est GFR (Non-Af Amer) ml/min BUN/Creatinine Ratio (10-20) Glucose (70-99(Fasting)) mg/dl Calcium (8.5-10.1) mg/dl Magnesium (1.7-2.4) mg/dl Total Bilirubin (0.2-1.0) mg/dl AST (13-39) U/L ALT (7-52) U/L Alkaline Phosphatase (34-104) U/L Troponin I High Sens 6.8 (0-20) pg/ml Total Protein (6.0-8.3) gm/dl Albumin (3.4-5.0) gm/dl Globulin (2.5-4.0) gm/dl Albumin/Globulin Ratio (0.9-2) Lipase (11-82) U/L TSH (0.300-4.500) uIu/ml SARS-CoV-2, RNA, NAAT (NEGATIVE) Administered Medications Heparin Sodium/Dextrose (Heparin Sodium/Dextrose) 25,000 units in 500 mls @ 50 mls/hr IV .Q10H TOI; Protocol Stop: 01/28/22 13:14 Last Admin: 12/29/21 13:14 Dose: 2,500 units/hr, 50 mls/hr Documented by: [id number] Cosigned by: [id number] Metoprolol Tartrate (Metoprolol Tartrate 25 Mg Tab) 25 mg PO BID TOI Stop: 01/28/22 12:59 Last Admin: 12/29/21 14:40 Dose: 25 mg Documented by: [id number] Discontinued Medications Sodium Chloride (Nss) 500 mls @ 125 mls/hr IV .Q4H TOI Stop: 01/28/22 08:14 Last Admin: 12/29/21 14:59 Dose: Not Given Documented by: [id number] Infusion: 12/29/21 11:17 Dose: 0 mls/hr Documented by: [id number] Admin: 12/29/21 07:17 Dose: 125 mls/hr Documented by: [id number] Metoprolol Tartrate (Metoprolol Tartrate 1 Mg/Ml Vial) 2.5 mg IV NOW STA Stop: 12/29/21 07:07 Last Admin: 12/29/21 07:17 Dose: 2.5 mg Documented by: [id number] Imaging Data Radiologist's Impression: Chest X-Ray 12/29/21 06:53 XR chest 1V portable CLINICAL HISTORY: Atypical chest pain. COMPARISON STUDY: Chest radiograph September 01, 2021. FINDINGS: Lung volumes are normal. No pneumothorax or pleural effusion is present. Linear left lung opacities favor atelectasis. No consolidation is noted. Prominent vasculature is unchanged. The appearance of the chest is similar to prior exams. Right hilar prominence is unchanged. IMPRESSION: No acute cardiopulmonary findings. No significant change in appearance of the chest. ACT 112: Negative or not required by law. Electronically signed by: Nehemiah Abrams M.D. 12/29/2021 7:33 AM Discharge Plan Visit Data Chief Complaint: Chest Pain ED Provider: Naveen Norman Discharge Problem: Atrial fibrillation with rapid ventricular response, SOB (shortness of breath), Retrosternal chest pain Patient Disposition: Admitted As Inpatient Discharge Instructions Interventions: ED Discharge Assessment Last Done: 12/29/21 13:38
--- NOTE | 2021-12-29 07:34 | XRay Report ---
XR chest 1V portable CLINICAL HISTORY: Atypical chest pain. COMPARISON STUDY: Chest radiograph September 01, 2021. FINDINGS: Lung volumes are normal. No pneumothorax or pleural effusion is present. Linear left lung o pacities favor atelectasis. No consolidation is noted. Prominent vasculature is unchanged. The appear ance of the chest is similar to prior exams. Right hilar prominence is unchanged. IMPRESSION: No acute cardiopulmonary findings. No significant change in appearance of the chest. ACT 112: Negative or not required by law. Electronically signed by: Nehemiah Abrams M.D. 12/29/2021 7:33 AM
[2021-12-29 07:40] LABS: Albumin Globulin Ratio 0.9 (0.9-2); Albumin Level 3.6 gm/dl (3.4-5.0); BUN Creatinine Ratio 16.7 (10-20); Bilirubin,Total 0.3 mg/dl (0.2-1.0); Creatinine Clr Calc Pharmacy 225.2 ml/min; Est GFR (African American) 125.2 ml/min; Globulin 3.9 gm/dl (2.5-4.0); Magnesium 1.9 mg/dl (1.7-2.4); Potassium 3.9 mmol/L (3.5-5.1); Total Protein 7.5 gm/dl (6.0-8.3)
[2021-12-29 07:41] LABS: Partial Thromboplastin Time 28.5 Seconds (21.0-31.0); Prothrombin Time 10.7 Seconds (9.0-12.0)
[2021-12-29 07:44] LABS: Troponin I High Sensitivity 5.9 pg/ml (0-20)
[2021-12-29 08:06] LABS: D Dimer 2400 ug/L FEU (0-500)
--- NOTE | 2021-12-29 10:26 | History & Physical Report ---
Date of Service December 29, 2021 Assessment & Plan (1) Atrial fibrillation with rapid ventricular response: Plan: Patient is in a fib RVR. Received IV metoprolol. Will place on oral metoprolol and closely monitor. Will need to closely titrate up and will require intermittent IV metoprolol. Patient is also on IV heparin given a fib D dimer was eleavted but Wells criteria for Pulmonary emboli makes him low risk. will check ultrasound of lower extremity. CHADSVASC SCORE is 1-2 depending if patient had elevated BP. For now will anticoagulate with warfarin. (2) Retrosternal chest pain: Plan: will check serial troponin (3) Type II diabetes mellitus: Plan: A1C is 7. will recheck in the AM. (4) Tobacco abuse disorder: Plan: Patient smokes 1 pack per day. Patien denies any need for nicotine patch as of now (5) BMI 70 and over, adult: Plan: recommend life style modifications. History of Present Illness Chief Complaint: heart palpitations Primary Care Provider: Jamarcus Cramer MD This is a pleasant 41 yo male with a significant history of: diabetes, BMI>78, SMOKER, presents to the hospital after waking up with heart palpitations. Patient's alarm awoke patient, but once he was awake, he immediately noted chest palpitations and midsternum pressure like in nature moderate intensity chest pain radiating to right should.. Chest pain was accompanied by dyspnea. Lasted about 60 minutes. Improved with nitro once ambulance arrived ( called 911) Patient reports some chest pain in the past but the previous pain was lower in duration 30 minutes. Patient reports he is curently pain free. Allergies Allergy/AdvReac Type Severity Reaction Status Date / Time No Known Allergies Allergy Verified 11/02/21 13:40 Home Medications Medication Instructions Recorded Confirmed Type albuterol sulfate 90 mcg/actuation 1 puff INH Q6H PRN #18 gm 12/16/20 12/29/21 Rx aerosol inhaler (Ventolin HFA) albuterol sulfate 2.5 mg INHALATION .COMPLEX PRN 09/01/21 12/29/21 History metformin 500 mg tablet 500 mg PO BID #60 tab 11/07/21 12/29/21 Rx Past Med/Surg History Medical History Anemia BMI 60.0-69.9, adult BMI currently 66.4 Dyslipidemia Low testosterone Metabolic syndrome Morbid obesity Nocturnal hypoxia Severe sleep apnea pt does not use CPAP as ordered Smokes 1 pack of cigarettes per day Type II diabetes mellitus Surgical History History of adenoidectomy History of appendectomy History of wisdom tooth extraction Family History Father Hypertension Grandfather Myocardial infarction Unknown Obese Brother Valvular heart disease Other No family history of adverse response to anesthesia Social History Smoking Status: Current every day smoker Tobacco Type: Cigarettes Age Started Using Tobacco: 19; packs per day: 0.5; Cigarettes Per Day: 10; Second Hand Exposure: No; Hx Alcohol Use: No Hx Substance Use: No Preferred Language: [place] Communication Ability: Effective 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 Beliefs That Will Affect Care: None marital status details: Current Living Situation: Significant Other Current Living Situation Comment: Lives with and 2 kids current occupational status: employed current occupation: [employer] Feels Safe at Home: Yes Safety Concerns: Feels Safe At This Time Childhood Exposure to Second-Hand Smoke: No Physical Activity Frequency: Does not Exercise Seatbelt Use: never Assistive Devices: Glasses Review of Systems Constitutional: no fever, no sweats and no body aches Eyes: no blind spots and no diplopia Ear, Nose, Mouth, Throat: no ear pain and no tinnitus Respiratory: + dyspnea; no cough Cardiovascular: + chest pain Gastrointestinal: no abdominal pain Genitourinary: no dysuria Musculoskeletal: no back pain Integumentary: no acne and no rash Neurologic: no gait abnormality and no localized weakness Psychiatric: no behavioral changes Endocrine: + fatigue Hematologic / Lymphatic: no easy bleeding Allergy / Immunological: no GI upset with certain foods Physical Exam Constitutional: WD/WN, vitals as above (in no acute distress) + morbidly obese Eyes: PERRL, conjunctivae normal, anicteric sclerae ENMT: external ear and nose normal, oropharynx normal Neck: trachea midline, no thyromegaly Respiratory: normal respiratory effort, lungs clear to auscultation Cardiovascular: Rate/Rhythm: + tachycardic and + irregularly irregular Heart Sounds: normal S1 and normal S2 Vessels: no JVD Gastrointestinal (Abdomen): normal bowel sounds, soft, nontender, no hepatosplenomegaly Musculoskeletal: no cyanosis or clubbing, extremities motor strength 5/5 Skin: no rashes, warm and dry Neurologic: PERRL, EOMI, accommodation nl, no face palsy, no dysarthria Psychiatric: A+Ox3, euthymic affect Genitourinary: no testicular masses, no penis abnormality Lymphatic: no cervical or axillary lymphadenopathy Results & Data Results & Data ([facility]) Vital Signs (Past 12 Hours) Vital Signs Temp Pulse Pulse Resp BP BP Pulse Ox 12/29/21 07:30 125 H 18 126/81 92 12/29/21 07:23 130 H 14 124/74 98 12/29/21 07:17 126 H 109/78 12/29/21 06:56 37.1 C 132 H 132 H 18 109/78 109/78 97 PG Care Time/CCT Total # of Minutes Spent Total Time Spent with Patient: Total time spent is greater than 50% in coordination of care (as documented) at patient's floor/unit and/or counseling patient: Coding Level of Care Code 13990 Initial Inpt Care Lvl 3 Diagnoses Atrial fibrillation with rapid ventricular response I48.91 Retrosternal chest pain R07.2 Type II diabetes mellitus E11.9 Tobacco abuse disorder Z72.0 BMI 70 and over, adult Z68.45
[2021-12-29] MEDS ORDERED: ALBUTEROL 0.083% NEBU SOLN 3 ML VIAL INH PRN (12:55)
[2021-12-29] MEDS ORDERED: Heparin IV Adult Wt-Based Standard *NO* Bolus Protocol ONE (12:59)
[2021-12-29] MEDS ORDERED: PHARMACY GLYCEMIC MGMT CONSULT PRN (13:05)
[2021-12-29] MEDS: HEPARIN SODIUM/DEXTROSE 25,000 UNITS/500 ML BAG IV SCH ×3 (13:14→23:37)
[2021-12-29] MEDS ORDERED: WARFARIN SOD 7.5 MG TAB PO ONE (14:01)
[2021-12-29] MEDS ORDERED: GLUCOSE 10 TABS/TUBE PO PRN (14:30)
[2021-12-29] MEDS ORDERED: DEXTROSE 50% 50 ML SYRINGE IV PRN (14:30)
[2021-12-29] MEDS ORDERED: GLUCAGON FOR INJ 1 MG VIAL IM PRN (14:30)
[2021-12-29] MEDS ORDERED: CARBOHYDRATES FOR HYPOGLYCEMIA PO PRN (14:30)
[2021-12-29] MEDS ORDERED: GLUCOSE 40% GEL 15 GM TUBE PO PRN (14:30)
[2021-12-29] MEDS: METOPROLOL TARTRATE 25 MG TAB PO SCH ×2 (14:40→21:55)
--- NOTE | 2021-12-29 15:37 | Cardiology Consultation ---
Date of Consultation December 29, 2021 Assessment & Plan (1) Atrial fibrillation with rapid ventricular response: 1. Atrial fibrillation: The patient's symptoms are likely related to developing atrial fibrillation and associated high ventricular rates. His chest pain is not seem to be ischemic in nature given the prolonged duration and normal biomarkers. The etiology of his atrial fibrillation likely involves his obesity and untreated sleep apnea. It is very likely he will convert back to normal on his own within 24 hours of is truly his 1st episode. I think rate control is of value in the immediate term. He will be started on beta-blockade. Additionally, we may need to perform cardioversion if these is not spontaneously convert and he would likely benefit from systemic anticoagulation. Given his weight they recommended agent would be warfarin. He appears to have diabetes in this puts him at higher risk of stroke. He may have untreated hypertension as well. Continued systemic anticoagulation is likely indicated. With adequate rate control or spontaneous conversion to sinus rhythm he could conceivably be discharged with outpatient follow-up. History of Present Illness Reason for Consultation: Atrial fibrillation, chest pain Requesting Physician: Pamela Attending Physician: Matthew Santiago History of Present Illness The patient is a 41-year-old gentleman without a known history of cardiac disease who presented to the emergency room with symptoms of palpitations and chest pain. The patient states that he awoke early this morning and noticed that his heart was racing and beating harder. This was accompanied shortly thereafter by a sense of chest discomfort in the precordium. There did not appear to be significant radiation. Perhaps some minor breathing difficulty. No dizziness or lightheadedness. Patient attempted to get ready for work and took a shower. However, his symptoms persisted and he eventually called an ambulance. EN route he was administered nitroglycerin with some improvement but not resolution of his chest discomfort. In the emergency room he was noted to have atrial fibrillation and rapid ventricular response. The patient is an active individual who works in [employer] industry. He is able at ascend stairs at home with some difficulty. Does have an element of dyspnea at times. He generally does not have dizziness or lightheadedness. He generally does not have symptoms of palpitations or chest pain. He does have obstructive sleep apnea and does not use CPAP at nighttime. He sleeps in a somewhat upright position. Allergies Allergy/AdvReac Type Severity Reaction Status Date / Time No Known Allergies Allergy Verified 11/02/21 13:40 Home Medications Medication Instructions Recorded Confirmed Type albuterol sulfate 90 mcg/actuation 1 puff INH Q6H PRN #18 gm 12/16/20 12/29/21 Rx aerosol inhaler (Ventolin HFA) albuterol sulfate 2.5 mg INHALATION .COMPLEX PRN 09/01/21 12/29/21 History metformin 500 mg tablet 500 mg PO BID #60 tab 11/07/21 12/29/21 Rx Patient History Medical History Anemia BMI 60.0-69.9, adult BMI currently 66.4 Dyslipidemia Low testosterone Metabolic syndrome Morbid obesity Nocturnal hypoxia Severe sleep apnea pt does not use CPAP as ordered Smokes 1 pack of cigarettes per day Type II diabetes mellitus Surgical History History of adenoidectomy History of appendectomy History of wisdom tooth extraction Family History Father Hypertension Grandfather Myocardial infarction Unknown Obese Brother Valvular heart disease Other No family history of adverse response to anesthesia Social History Smoking Status: Current every day smoker Tobacco Type: Cigarettes Age Started Using Tobacco: 19; packs per day: 0.5; Cigarettes Per Day: 10; Second Hand Exposure: No; Hx Alcohol Use: No Hx Substance Use: No Preferred Language: Arabic Communication Ability: Effective 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 Mood and affect appeared normal. He answered all questions appropriately. Obese HEENT: Pupils are equal and reactive to light and accommodation. Extraocular movements are intact. The sclerae are anicteric. Neuro: Cranial nerves intact Lungs: Clear to auscultation bilaterally. He has good air movement without use of accessory muscles. No rales wheezes or rhonchi. Cardiac: Heart demonstrates an irregular rate and rhythm. Normal S1 and S2. No murmurs on examination. Pulses: The patient has palpable radial pulses bilaterally that are equal in intensity Extremities: There was no evidence of hypoperfusion. There is no cyanosis or clubbing. Skin: I did not appreciate any rashes on examination today. Results & Data ([facility]) Vital Signs (Past 12 Hours) Vital Signs Temp Pulse Pulse Resp BP BP Pulse Ox 12/29/21 15:10 36.5 C 106 H 19 113/68 91 12/29/21 15:00 123 H 12/29/21 13:38 105 H 20 123/94 94 12/29/21 12:52 36.8 C 111 H 22 153/86 H 99 12/29/21 12:30 111 H 16 117/79 96 12/29/21 11:30 100 H 18 131/88 94 12/29/21 11:15 102 H 24 123/96 97 12/29/21 10:46 109 H 22 116/68 99 12/29/21 10:15 98 H 18 140/80 92 12/29/21 10:01 103 H 22 114/87 95 12/29/21 09:45 108 H 16 108/83 94 12/29/21 09:31 111 H 18 117/92 96 12/29/21 09:15 102 H 16 106/85 96 12/29/21 08:45 102 H 21 113/90 94 12/29/21 08:30 102 H 18 93/78 L 93 12/29/21 08:15 126 H 22 119/79 93 12/29/21 08:00 123 H 20 143/74 H 94 12/29/21 07:45 111 H 18 118/76 94 12/29/21 07:30 125 H 18 126/81 92 12/29/21 07:23 130 H 14 124/74 98 12/29/21 07:17 126 H 109/78 12/29/21 06:56 37.1 C 132 H 132 H 18 109/78 109/78 97 Pulse Ox 12/29/21 15:10 12/29/21 15:00 12/29/21 13:38 12/29/21 12:52 99 12/29/21 12:30 12/29/21 11:30 12/29/21 11:15 12/29/21 10:46 12/29/21 10:15 12/29/21 10:01 12/29/21 09:45 12/29/21 09:31 12/29/21 09:15 12/29/21 08:45 12/29/21 08:30 12/29/21 08:15 12/29/21 08:00 12/29/21 07:45 12/29/21 07:30 12/29/21 07:23 12/29/21 07:17 12/29/21 06:56 Laboratory Results Abnormal Lab Results 12/29/21 12/29/21 12/29/21 06:58 06:58 06:58 WBC 9.47 RBC 4.27 L Hgb 12.5 L Hct 38.2 L MCV 89.5 MCH 29.3 MCHC 32.7 RDW Std Deviation 53.1 H RDW Coeff of Amberly 16.3 H Plt Count 331 MPV 9.7 Immature Gran % (Auto) 0.3 Neut % (Auto) 68.5 Lymph % (Auto) 22.2 [place] % (Auto) 7.1 Eos % (Auto) 1.8 Baso % (Auto) 0.1 Neut # (Auto) 6.49 Lymph # (Auto) 2.10 [place] # (Auto) 0.67 H Eos # (Auto) 0.17 Baso # (Auto) 0.01 Immature Gran # (Auto) 0.03 H PT 10.7 INR 1.0 APTT 28.5 PTT Ratio 1.0 D-Dimer Sodium 137 Potassium 3.9 Chloride 107 Carbon Dioxide 24 Anion Gap 6 BUN 14 Creatinine 0.84 Est Cr Clr Drug Dosing 225.2 Est GFR ( Amer) 125.2 Est GFR (Non-Af Amer) 108.0 BUN/Creatinine Ratio 16.7 Glucose 142 H Calcium 9.0 Magnesium 1.9 Total Bilirubin 0.3 AST 10 L ALT 18 Alkaline Phosphatase 82 Troponin I High Sens 5.9 Total Protein 7.5 Albumin 3.6 Globulin 3.9 Albumin/Globulin Ratio 0.9 Lipase 17 TSH SARS-CoV-2, RNA, NAAT 12/29/21 12/29/21 12/29/21 06:58 06:58 07:21 WBC RBC Hgb Hct MCV MCH MCHC RDW Std Deviation RDW Coeff of Amberly Plt Count MPV Immature Gran % (Auto) Neut % (Auto) Lymph % (Auto) [place] % (Auto) Eos % (Auto) Baso % (Auto) Neut # (Auto) Lymph # (Auto) [place] # (Auto) Eos # (Auto) Baso # (Auto) Immature Gran # (Auto) PT INR APTT PTT Ratio D-Dimer 2400 H* Sodium Potassium Chloride Carbon Dioxide Anion Gap BUN Creatinine Est Cr Clr Drug Dosing Est GFR ( Amer) Est GFR (Non-Af Amer) BUN/Creatinine Ratio Glucose Calcium Magnesium Total Bilirubin AST ALT Alkaline Phosphatase Troponin I High Sens Total Protein Albumin Globulin Albumin/Globulin Ratio Lipase TSH 2.234 SARS-CoV-2, RNA, NAAT NEGATIVE 12/29/21 11:42 WBC RBC Hgb Hct MCV MCH MCHC RDW Std Deviation RDW Coeff of Amberly Plt Count MPV Immature Gran % (Auto) Neut % (Auto) Lymph % (Auto) [place] % (Auto) Eos % (Auto) Baso % (Auto) Neut # (Auto) Lymph # (Auto) [place] # (Auto) Eos # (Auto) Baso # (Auto) Immature Gran # (Auto) PT INR APTT PTT Ratio D-Dimer Sodium Potassium Chloride Carbon Dioxide Anion Gap BUN Creatinine Est Cr Clr Drug Dosing Est GFR ( Amer) Est GFR (Non-Af Amer) BUN/Creatinine Ratio Glucose Calcium Magnesium Total Bilirubin AST ALT Alkaline Phosphatase Troponin I High Sens 6.8 Total Protein Albumin Globulin Albumin/Globulin Ratio Lipase TSH SARS-CoV-2, RNA, NAAT Diagnostic Findings Chest x-ray obtained the time admission revealed no acute cardiopulmonary process Echocardiogram obtained today revealed generally preserved LV systolic function. Image quality was limited. PG Care Time/CCT Total # of Minutes Spent Total Time Spent with Patient: Total time spent is greater than 50% in coordination of care (as documented) at patient's floor/unit and/or counseling patient: Coding Level of Care Code 10834 Office/OBS Consult Lvl 4 Diagnoses Atrial fibrillation with rapid ventricular response I48.91
--- NOTE | 2021-12-29 15:43 | XCELERA ---
[id number] \\[id number]
[2021-12-29] MEDS ORDERED: WARFARIN SOD 5 MG TAB PO ONE (16:00)
[2021-12-29] MEDS: INSULIN ASPART PER UNIT SC SCH ×2 (17:41→21:56)
--- NOTE | 2021-12-29 18:10 | Electrocardiogram Report ---
Test Reason : Blood Pressure : / mmHG Vent. Rate : 133 BPM Atrial Rate : 159 BPM P-R Int : 000 ms QRS Dur : 092 ms QT Int : 324 ms P-R-T Axes : 000 041 000 degrees QTc Int : 482 ms Atrial fibrillation with rapid ventricular response Abnormal ECG When compared with ECG of 01-SEP-2021 21:19, Atrial fibrillation has replaced Sinus rhythm Vent. rate has increased BY 48 BPM Confirmed by Jamarcus Hale ([id number]) on 12/29/2021 6:10:11 PM Referred By: Confirmed By:Aleks Hale
--- NOTE | 2021-12-29 20:51 | Ultrasound Report ---
US venous doppler LE BI CLINICAL HISTORY: Bilateral leg pain and swelling COMPARISON: None available at the time of this dictation. TECHNIQUE: Bilateral lower extremity real-time compression venous ultrasound with Color Doppler imagi ng. Utilizing real-time ultrasonic imaging multiple real time high-resolution ultrasonic images with comp ression and noncompression maneuvers of the deep venous system in addition to color doppler imaging w ere performed from the common femoral vein through the proximal calf veins. FINDINGS: Currently there is normal compressibility of the deep venous system from the common femoral vein thro ugh the proximal calf veins. No current evidence of acute thrombosis is identified. Impression: No evidence of deep venous thrombus. ACT 112: Negative or not required by law. Electronically signed by: Gerardo Jesus M.D. 12/29/2021 8:49 PM
[2021-12-29 21:28] LABS: Partial Thromboplastin Ratio 1.2; Partial Thromboplastin Time 33.3 Seconds (21.0-31.0)
[2021-12-29] MEDS ORDERED: HEPARIN SOD (PORCINE) 1000 UNIT/ML IV ONE (22:15)
[2021-12-30] MEDS ORDERED: MELATONIN 3 MG TAB PO PRN (00:03)
[2021-12-30 04:22] LABS: Basophils # (auto) 0.02 K/uL (0-0.2); Basophils % (auto) 0.2 %; Eosinophils # (auto) 0.18 K/uL (0-0.5); Eosinophils % (auto) 1.7 %; Hematocrit (blood only) 37.6 % (42-52); Hemoglobin 12.2 g/dL (14.0-18.0); Immature Granulocytes # (auto) 0.03 K/uL (0.00-0.02); Immature Granulocytes % (auto) 0.3 %; Lymphocytes # (auto) 2.51 K/uL (1.2-3.4); Lymphocytes % (auto) 23.7 %; Mean Corpuscular Hgb Conc 32.4 g/dL (32-36); Mean Corpuscular Volume 89.3 fL (80-100); Mean Platelet Volume 9.5 fL (7.4-10.4); Monocytes # (auto) 0.84 K/uL (0.11-0.59); Monocytes % (auto) 7.9 %; Neutrophils # (auto) 6.99 K/uL (1.4-6.5); Neutrophils % (auto) 66.2 %; Platelet Count 326 K/uL (130-400); RDW Coefficient of Variation 16.2 % (11.5-14.5); Red Blood Count 4.21 M/uL (4.7-6.1); White Blood Count 10.57 K/uL (4.8-10.8)
[2021-12-30 04:45] LABS: Partial Thromboplastin Ratio 1.4; Partial Thromboplastin Time 38.7 Seconds (21.0-31.0)
[2021-12-30 04:57] LABS: Albumin Globulin Ratio 0.9 (0.9-2); Albumin Level 3.6 gm/dl (3.4-5.0); BUN Creatinine Ratio 13.5 (10-20); Bilirubin,Total 0.4 mg/dl (0.2-1.0); Calcium 8.9 mg/dl (8.5-10.1); Chol HDL Ratio 3.9 (0-5); Creatinine Clr Calc Pharmacy 212.5 ml/min; Est GFR (African American) 122.2 ml/min; Est GFR (Non-African American) 105.5 ml/min; Globulin 3.9 gm/dl (2.5-4.0); Total Protein 7.5 gm/dl (6.0-8.3)
[2021-12-30] MEDS: METOPROLOL TARTRATE 25 MG TAB PO SCH (08:11)
[2021-12-30] MEDS: INSULIN ASPART PER UNIT SC SCH (08:15)
[2021-12-30] MEDS: HEPARIN SODIUM/DEXTROSE 25,000 UNITS/500 ML BAG IV SCH (08:16)
[2021-12-30 08:49] LABS: Estimated Average Glucose 151 mg/dl; Hemoglobin A1C 6.9 % (4.5-5.6)
--- NOTE | 2021-12-30 10:28 | Discharge Summary ---
Date of Service December 30, 2021 Admission HPI Per Admitting Provider This is a pleasant 41 yo male with a significant history of: diabetes, BMI>78, SMOKER, presents to the hospital after waking up with heart palpitations. Patient's alarm awoke patient, but once he was awake, he immediately noted chest palpitations and midsternum pressure like in nature moderate intensity chest pain radiating to right should.. Chest pain was accompanied by dyspnea. Lasted about 60 minutes. Improved with nitro once ambulance arrived ( called 911) Patient reports some chest pain in the past but the previous pain was lower in duration 30 minutes. Patient reports he is curently pain free. Principal Diagnosis rapid atrial fibrillation Discharge Exam Constitutional WD/WN, vitals as above (in no acute distress) + morbidly obese Eyes PERRL, conjunctivae normal, anicteric sclerae ENMT external ear and nose normal, oropharynx normal Neck trachea midline, no thyromegaly Respiratory normal respiratory effort, lungs clear to auscultation Cardiovascular Rate/Rhythm: + tachycardic and + irregularly irregular Heart Sounds: normal S1 and normal S2 Vessels: no JVD Gastrointestinal (Abdomen) normal bowel sounds, soft, nontender, no hepatosplenomegaly Musculoskeletal no cyanosis or clubbing, extremities motor strength 5/5 Skin no rashes, warm and dry Neurologic PERRL, EOMI, accommodation nl, no face palsy, no dysarthria Psychiatric A+Ox3, euthymic affect Genitourinary no testicular masses, no penis abnormality Lymphatic no cervical or axillary lymphadenopathy Discharge Data Allergies Allergy/AdvReac Type Severity Reaction Status Date / Time No Known Allergies Allergy Verified 11/02/21 13:40 Consultations 12/29/21 10:25 ED Decision to Admit Stat 12/29/21 10:52 Consult Cardiology Routine Ordered Studies 12/29/21 14:00 US venous doppler LE Routine Hospital Course (1) Atrial fibrillation with rapid ventricular response: Patient is signing out against medical advice. Patient came in to the hospital with atrial fibrillation and RVR. Received IV metoprolol. After a day of Metoprolol 25 mg PO BID lowered the HR but it was ranging from 90-110 at rest. Will increase to 37.5 mg PO BID. Patient is also on IV heparin given a fib D dimer was elevqted but Wells criteria for Pulmonary emboli makes him low risk. Negative DVT on ultrasound of lower extremity. CHADSVASC SCORE is 1-2 depending if patient had elevated BP. Given that he has documented metabolic syndrome, and multiple readings of elevated BP, I would considered undiagnosed hypertension in his diagnosis. Due to his weight above 550 pounds, patient would benefit from warfarin. However, due to not knowing his INR trend and the fact that he is signing out against medical advice. Will discharge him on xarelto, as discussed pharmacy. This should offer closer short term anticoagulation as patient gets established with anticoag clinic. This was explained to patient that either options (warfarin and xarelto) in the short term would not cover fully for preventing strokes and he is taking the full risk here as I recommended that he stay in the hospital to know what level he requires. Patient opted for the xarelto. Coupon was given. Information of xarelto was given to patient and explained. Patient will be signing against medical advice. (2) Retrosternal chest pain: repeat trop were negative. Chest pain was likely non cardiac due to duration and no elevation of trop. (3) Type II diabetes mellitus: A1C is 7. will recheck in the AM: this was 6.9 (4) Tobacco abuse disorder: Patient smokes 1 pack per day. Patien denies any need for nicotine patch as of now (5) BMI 70 and over, adult: recommend life style modifications. Total Time Total Time Spent Total Time Spent (In Minutes): 65 Discharge Plan Discharge Items Patient Disposition: Against Medical Advice Reason For Visit: A FIB/CHEST PAIN Activity: Resume your previous activity Non-emergency contact: Primary Care Provider and Supervisor Type Photography Follow-up/Referrals: Jamarcus Cramer MD [Primary Care Provider] - Add Traffic Analysis Technician Provider Instructions: Recommend followup with Cardiology Dr. Lanier within next week or 2. Recommend followup with anticoagulation clinic with Dr. Bell. Recommend followup with PCP within next week. Recommend quitting smoking. Given that you are signing against medical advice,you will be discharged on xarelto for blood thinning medication as I cannot predict your warfarin dose as an outpatient. I did explain that there are no studies in your current weight class in regards to xarelto, so this medication may not fully protect you from having a stroke. This was explained to you, and you are willing to leave the hospital. We will discharge you on beta elizabeth medications as your HR has been elevated. Beware that you HR may decrease if you rhythm spontaneously converts back to normal. If you feel dizzy please come back or call your primary care provider. Given that you are signing out against medical advice, it is difficult to predict your heart rate trend. Pending Studies at Discharge: No Stand-Alone Forms: My [facility], Smoking Cessation Medications and DC Order Prescriptions: New metoprolol tartrate 37.5 mg tablet 37.5 mg PO BID Qty: 60 RF: 0 Xarelto 20 mg tablet 20 mg PO PM Qty: 30 RF: 0 Continued albuterol sulfate [Ventolin HFA] 90 mcg/actuation HFA aerosol inhaler 1 puff INH Q6H PRN (Reason: shortness of breath or wheezing) Qty: 18 RF: 5 metformin 500 mg tablet 500 mg PO BID Qty: 60 RF: 5 albuterol sulfate 2.5 mg /3 mL (0.083 %) solution for nebulization 2.5 mg inhalation .COMPLEX PRN (Reason: Shortness Of Breath) RF: 0 Discharge Orders: Left Against Medical Advice (Routine); Ordered 12/30/21 Ordered By: Matthew Santiago Admission Data Admit Date/Time: 12/29/21 12:52 Attending Provider: Matthew Santiago Admit Provider: Matthew Santiago Primary Care Provider: Jamarcus Cramer Other Providers: Matthew Santiago ; Jamarcus Hale Coding Level of Care Code D/C DAY MANAGEMENT >30 MINS Diagnoses Atrial fibrillation with rapid ventricular response I48.91 Retrosternal chest pain R07.2 Type II diabetes mellitus E11.9 Tobacco abuse disorder Z72.0 BMI 70 and over, adult Z68.45
== END 2021-12-30 10:56 | disposition left against medical advice (07) | DRG 309 ==
LOC: ED 06:49 → 2E 12:52

== ENCOUNTER 2022-06-26 06:31 | Inpatient (IN) ==
[2022-06-26 06:52] LABS: Basophils # (auto) 0.03 K/uL (0-0.2); Basophils % (auto) 0.3 %; Eosinophils # (auto) 0.09 K/uL (0-0.50); Eosinophils % (auto) 0.9 %; Hematocrit (blood only) 41.9 % (40.1-51.0); Hemoglobin 13.2 g/dl (14.0-18.0); Immature Granulocytes # (auto) 0.04 K/uL (0.00-0.02); Immature Granulocytes % (auto) 0.4 %; Lymphocytes # (auto) 1.72 K/uL (1.2-3.4); Lymphocytes % (auto) 17.8 %; Mean Corpuscular Hemoglobin 29.2 pg (25.0-34.0); Mean Corpuscular Hgb Conc 31.5 g/dL (32.0-36.0); Mean Corpuscular Volume 92.7 fL (80.0-100.0); Mean Platelet Volume 10.3 fL (9.4-12.4); Monocytes # (auto) 0.59 K/uL (0.24-0.82); Monocytes % (auto) 6.1 %; Neutrophils # (auto) 7.19 K/uL (1.4-6.5); Neutrophils % (auto) 74.5 %; Platelet Count 279 K/uL (130-400); RDW Coefficient of Variation 17.1 % (11.5-14.5); RDW Standard Deviation 59.1 fL (36.4-46.3); Red Blood Count 4.52 M/uL (4.63-6.08); White Blood Count 9.66 K/ul (4.8-10.8)
--- NOTE | 2022-06-26 06:53 | XRay Report ---
SINGLE VIEW CHEST CLINICAL HISTORY: Dyspnea. Atypical chest pain FINDINGS: 2 AP, portable, upright chest radiographs are compared to study dated 12/29/2021. The examin ation is degraded by portable technique and large body habitus. The heart is enlarged. There is pulmo nary vascular congestion with bilateral airspace opacities. No large pleural effusion is seen. Foci o f platelike atelectasis are noted in the left lung. No pneumothorax is seen. The bony thorax is gross ly intact. IMPRESSION: 1. Cardiomegaly with evidence of congestive failure. 2. Bilateral airspace opacities likely represent pulmonary edema. Correlate clinically for evidence o f a superimposed infectious/inflammatory pneumonitis. Radiographic follow-up to resolution is recomme nded ACT 112: Negative or not required by law. Electronically signed by: Dave Mckeon M.D. 06/26/2022 6:52 AM
[2022-06-26] MEDS ORDERED: Heparin IV Adult Wt-Based Standard WITH Bolus Protocol IV STA (06:55)
--- NOTE | 2022-06-26 06:55 | Emergency Department Note ---
Impression & Plan Chest pain, Breath shortness, Atrial fibrillation with RVR, CHF (congestive heart failure) ED Provider Note NAME: KWAKU FRANCOIS AGE: 42 SEX: M : 1980 ARRIVES VIA: Ambulance INFORMANT: Patient ED PROVIDER(S): Bret Zaragoza DO CHIEF COMPLAINT: Chest Pain HPI: Patient is a 42-year-old male morbidly obese with a past medical history severe sleep apnea, hypertension, hyperlipidemia, A. 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 He denies any headache or change in vision. No belly pain, nausea, vomiting or diarrhea. No dysuria, urgency or frequency. No other exacerbating or remitting factors. He does admit to increased swelling in his legs. He has been taking his metoprolol. ROS: See above HPI for pertinent positives & negatives. A total of 10 systems reviewed and were otherwise negative. PAST MEDICAL HISTORY:See Below PAST SURGICAL HISTORY:See Below FAMILY HISTORY:See Below SOCIAL HISTORY:See Below HOME MEDICATIONS:See Below ALLERGIES:See Below VITALS:See Below PHYSICAL EXAMINATION: GENERAL: Sitting up in bed, alert, ill-appearing, morbidly obese, disheveled EYE EXAM: normal conjunctiva. PERRL and EOM's grossly intact. OROPHARYNX: mucous membranes are moist NECK: supple, no nuchal rigidity, no adenopathy, non-tender LUNGS: Diminished bilaterally with wheezing. Normal chest wall mechanics HEART: Tachycardic and irregular regular, S1 normal and S2 normal ABDOMEN: abdomen soft, non-tender, normo-active bowel sounds, no masses, no rebound or guarding. UPPER EXTREMITIES: upper extremities are grossly normal. LOWER EXTREMITIES: Pitting edema bilaterally NEURO EXAM: Normal sensorium, cranial nerves II-XII grossly intact, normal speech, no gross weakness of arms, no gross weakness of legs. MEDICAL DECISION MAKING: Patient is a 42-year-old morbidly obese male with a past medical history of hypertension, diabetes, hyperlipidemia and A. fib RVR not on Coumadin that presents the ER for chest pain and shortness of breath. IV was established blood work is obtained. Labs show no significant leukocytosis or anemia. D- dimer is elevated at 1200. BMP with LFTs bilirubin and troponin was negative. Lipase is unremarkable. COVID was negative. Due to his body habitus patient is unlikely able to obtain a CT angio of the chest. Patient was placed on heparin drip and bolus. Following starting the drip I did give him 1 dose of Lopressor for his A. fib. This is at his heart rate trended down slightly. Hold on any additional doses until he obtains ultrasounds of the legs and will defer to the hospitalist. Patient was also given a dose of Lasix. Triage Nursing notes reviewed. Limited review of prior medical records performed Vital Signs: reviewed and remarkable for tachy Differential diagnosis: Cardiac ischemia, aortic dissection, pulmonary embolism, pneumothorax, pneumonia, pericarditis, myocarditis, esophageal rupture, GERD, cholecystitis, pancreatitis, musculoskeletal, as well as other pathologies. ER treatment provided: See below Diagnostics interpreted by me: ECG: A. fib RVR rate of 123 Normal axis No PVCs QTC 400 Cardiac Monitoring: An order was placed for continuous cardiac monitoring. The monitor shows a rate of 122 with sinus rhythm. Laboratory studies: As stated above and show below. Imaging studies: Portable AP upright 1 view of the chest shows pulmonary edema Consultation(s): Discussed with Dr. Lugo and patient was seen and evaluated for further work- up Procedures: none Critical Care: I have personally spent 32 minutes of critical care time in the direct management of this patient. This includes bedside care, interpretation of diagnostic studies, and testing, discussion with consultants, patient, and family members, and other required patient management activities. This 32 minutes is in excess of all separately billable procedures. Past Med/Surg History Medical History Anemia Atrial fibrillation BMI 60.0-69.9, adult BMI currently 66.4 Dyslipidemia Low testosterone Metabolic syndrome Morbid obesity Nocturnal hypoxia Retrosternal chest pain Severe sleep apnea pt does not use CPAP as ordered Smokes 1 pack of cigarettes per day SOB (shortness of breath) Type II diabetes mellitus Surgical History History of adenoidectomy History of appendectomy History of wisdom tooth extraction Family History Father Hypertension Grandfather Myocardial infarction Unknown Obese Brother Valvular heart disease Other No family history of adverse response to anesthesia Social History Smoking Status: Current every day smoker Tobacco Type: Cigarettes Age Started Using Tobacco: 19; packs per day: 0.5; Cigarettes Per Day: 20; Second Hand Exposure: No; Do You Dip or Chew Tobacco: No; Tobacco Cessation Education Requested by Patient: Yes Hx Alcohol Use: No Hx Substance Use: No Preferred Language: Bangladeshi Communication Ability: Effective Labor Arbitrator Hearing Office Required: No Beliefs That Will Affect Care: None marital status details: Current Living Situation: Significant Other Current Living Situation Comment: ex and youngest son current occupational status: employed current occupation: [employer] Other Information That Helps Us Care for You: No Feels Safe at Home: Yes Safety Concerns: Feels Safe At This Time Childhood Exposure to Second-Hand Smoke: No Physical Activity Frequency: Does not Exercise Seatbelt Use: never Assistive Devices: Glasses Allergies Allergies Allergy/AdvReac Type Severity Reaction Status Date / Time No Known Allergies Allergy Verified 05/10/22 08:13 Home Meds Home Medications Medication Instructions Recorded Confirmed albuterol sulfate 2.5 mg/3 mL 2.5 mg inhalation .COMPLEX PRN 09/01/21 05/10/22 (0.083 %) solution for nebulization Shortness Of Breath Previous Rx's Medication Instructions Recorded metformin 500 mg tablet 500 mg PO BID #60 tabs 11/07/21 albuterol sulfate 90 mcg/actuation 1 puff inhalation Q6H PRN 01/04/22 aerosol inhaler (Ventolin HFA) shortness of breath or wheezing #18 grams metoprolol tartrate 50 mg tablet 50 mg PO BID #60 tabs 01/12/22 varenicline 1 mg tablet (Chantix) 1 mg PO BID #56 tabs 03/02/22 warfarin 5 mg tablet 5 mg PO DAILY #30 tabs 03/02/22 cephalexin 500 mg capsule 500 mg PO TID #21 caps 05/10/22 ofloxacin 0.3 % ear drops 10 drp otic (ear) BID #5 mL 05/10/22 Results & Data (ED) Vital Signs Vital Signs - 24 hr 06/26/22 06:41 06/26/22 06:41 06/26/22 06:41 Temperature 36.3 C L 36.3 C L Temperature Source Temporal Artery Scan Temporal Artery Scan Pulse Rate 118 H Pulse Rate [Finger] 118 H Pulse Rhythm [Finger] Respiratory Rate 24 22 Respiratory Effort / Characteristics Non-Labored Spontaneous Non-Labored Spontaneous Respiratory Depth Normal Normal Blood Pressure 122/58 L Blood Pressure [Right Arm] 122/85 Blood Pressure Mean 79 Blood Pressure Mean [Right Arm] 97 Blood Pressure Position Sitting Blood Pressure Position [Right Arm] Sitting Pulse Oximetry 97 97 96 Oxygen Delivery Method Nasal Cannula Nasal Cannula Nasal Cannula Oxygen Flow Rate 2 2 2 Sepsis Recent Fever Within 48 Hours No Sepsis New/Unexplained Change in Mental Status N/A Sepsis Action Taken by Nursing No Action Required 06/26/22 06:41 06/26/22 08:32 Temperature Temperature Source Pulse Rate 118 H Pulse Rate [Finger] 120 H Pulse Rhythm [Finger] Irregular Respiratory Rate 22 19 Respiratory Effort / Characteristics Respiratory Depth Blood Pressure Blood Pressure [Right Arm] Blood Pressure Mean Blood Pressure Mean [Right Arm] Blood Pressure Position Blood Pressure Position [Right Arm] Pulse Oximetry 97 96 Oxygen Delivery Method Nasal Cannula Nasal Cannula Oxygen Flow Rate 2 2 Sepsis Recent Fever Within 48 Hours Sepsis New/Unexplained Change in Mental Status Sepsis Action Taken by Nursing Laboratory Data Result diagrams: 06/26/22 06:15 06/26/22 06:15 Lab Results 06/26/22 06/26/22 06/26/22 Range/Units 06:15 06:15 08:08 WBC 9.66 (4.8-10.8) K/ul RBC 4.52 L (4.63-6.08) M/uL Hgb 13.2 L (14.0-18.0) g/dl Hct 41.9 (40.1-51.0) % MCV 92.7 (80.0-100.0) fL MCH 29.2 (25.0-34.0) pg MCHC 31.5 L (32.0-36.0) g/dL RDW Std Deviation 59.1 H (36.4-46.3) fL RDW Coeff of Amberly 17.1 H (11.5-14.5) % Plt Count 279 (130-400) K/uL MPV 10.3 (9.4-12.4) fL Immature Gran % (Auto) 0.4 % Neut % (Auto) 74.5 % Lymph % (Auto) 17.8 % [place] % (Auto) 6.1 % Eos % (Auto) 0.9 % Baso % (Auto) 0.3 % Neut # (Auto) 7.19 H (1.4-6.5) K/uL Lymph # (Auto) 1.72 (1.2-3.4) K/uL [place] # (Auto) 0.59 (0.24-0.82) K/uL Eos # (Auto) 0.09 (0-0.50) K/uL Baso # (Auto) 0.03 (0-0.2) K/uL Immature Gran # (Auto) 0.04 H (0.00-0.02) K/uL APTT 48.0 H* (21.0-31.0) Seconds PTT Ratio 1.7 D-Dimer 1260 H* (0-500) ug/L FEU Sodium 137 (136-145) mmol/L Potassium 4.2 (3.5-5.1) mmol/L Chloride 106 (98-107) mmol/L Carbon Dioxide 22 (21-32) mmol/L Anion Gap 9 (3-11) BUN 16 (6-23) mg/dl Creatinine 1.01 (0.6-1.4) mg/dl Est Cr Clr Drug Dosing 195.4 ml/min Est GFR ( Amer) 105.1 ml/min Est GFR (Non-Af Amer) 90.7 ml/min BUN/Creatinine Ratio 15.8 (10-20) Glucose 158 H (70-99(Fasting)) mg/dl Calcium 8.8 (8.5-10.1) mg/dl Total Bilirubin 0.5 (0.2-1.0) mg/dl AST 13 (13-39) U/L ALT 16 (7-52) U/L Alkaline Phosphatase 92 (34-104) U/L Troponin I High Sens 9.6 (0-20) pg/ml Total Protein 7.5 (6.0-8.3) gm/dl Albumin 3.8 (3.4-5.0) gm/dl Globulin 3.7 (2.5-4.0) gm/dl Albumin/Globulin Ratio 1.0 (0.9-2) Lipase 33 (11-82) U/L Administered Medications Heparin Sodium/Dextrose (Heparin Sodium/Dextrose) 25,000 units in 500 mls @ 50 mls/hr IV .Q10H TOI; Protocol Stop: 07/26/22 07:14 Last Titration: 06/26/22 11:09 Dose: 2,500 units/hr, 50 mls/hr Documented By: RAVEN Co-signed By: HITESH Admin: 06/26/22 07:46 Dose: 2,500 units/hr, 50 mls/hr Documented By: KV Co-signed By: MARTHA Discontinued Medications Aspirin (Aspirin Chew 324 Mg) 324 mg PO NOW STA Stop: 06/26/22 06:57 Last Admin: 06/26/22 07:45 Dose: 324 mg Documented By: KV Furosemide (Furosemide 40 Mg/4 Ml Vial) 40 mg IV NOW STA Stop: 06/26/22 07:45 Last Admin: 06/26/22 07:50 Dose: 40 mg Documented By: KV Heparin Sodium (Porcine) (Heparin Sod (Porcine) 1000 Unit/Ml) 1 units IV NOW ONE Stop: 06/26/22 07:11 Last Admin: 06/26/22 07:46 Dose: 5,000 units Documented By: KV Co-signed By: MARTHA Metoprolol Tartrate (Metoprolol Tartrate 1 Mg/Ml Vial) 5 mg IV NOW STA Stop: 06/26/22 09:00 Last Admin: 06/26/22 09:11 Dose: 5 mg Documented By: KV Imaging Data Radiologist's Impression: Chest X-Ray 06/26/22 06:39 SINGLE VIEW CHEST CLINICAL HISTORY: Dyspnea. Atypical chest pain FINDINGS: 2 AP, portable, upright chest radiographs are compared to study dated 12/29/2021. The examination is degraded by portable technique and large body habitus. The heart is enlarged. There is pulmonary vascular congestion with bilateral airspace opacities. No large pleural effusion is seen. Foci of platelike atelectasis are noted in the left lung. No pneumothorax is seen. The bony thorax is grossly intact. IMPRESSION: 1. Cardiomegaly with evidence of congestive failure. 2. Bilateral airspace opacities likely represent pulmonary edema. Correlate clinically for evidence of a superimposed infectious/inflammatory pneumonitis. Radiographic follow-up to resolution is recommended ACT 112: Negative or not required by law. Electronically signed by: Dave Mckeon M.D. 06/26/2022 6:52 AM Discharge Plan Visit Data Chief Complaint: Cardiac Assessment Stated Complaint: CHEST PAIN/SHORT OF BREATH ED Provider: Bret Zaragoza Discharge Problem: Chest pain, Breath shortness, Atrial fibrillation with RVR, CHF (congestive heart failure) Patient Disposition: Admitted As Inpatient Discharge Instructions Interventions: ED Discharge Assessment Last Done: 06/26/22 09:58
[2022-06-26] MEDS ORDERED: ASPIRIN CHEW 324 MG PO STA (06:56)
[2022-06-26] MEDS ORDERED: HEPARIN SOD (PORCINE) 1000 UNIT/ML IV ONE ×2 (07:10→15:23)
[2022-06-26 07:13] LABS: Albumin Level 3.8 gm/dl (3.4-5.0); BUN Creatinine Ratio 15.8 (10-20); Bilirubin,Total 0.5 mg/dl (0.2-1.0); Calcium 8.8 mg/dl (8.5-10.1); Creatinine Clr Calc Pharmacy 195.4 ml/min; Est GFR (African American) 105.1 ml/min; Est GFR (Non-African American) 90.7 ml/min; Globulin 3.7 gm/dl (2.5-4.0); Potassium 4.2 mmol/L (3.5-5.1); Total Protein 7.5 gm/dl (6.0-8.3)
[2022-06-26 07:20] LABS: Troponin I High Sensitivity 9.6 pg/ml (0-20)
[2022-06-26] MEDS ORDERED: FUROSEMIDE 40 MG/4 ML VIAL IV STA (07:44)
[2022-06-26] MEDS: HEPARIN SODIUM/DEXTROSE 25,000 UNITS/500 ML BAG IV SCH ×2 (07:46→17:37)
[2022-06-26 08:43] LABS: Partial Thromboplastin Ratio 1.7
--- NOTE | 2022-06-26 08:51 | Electrocardiogram Report ---
Test Reason : Blood Pressure : / mmHG Vent. Rate : 123 BPM Atrial Rate : 141 BPM P-R Int : 000 ms QRS Dur : 094 ms QT Int : 280 ms P-R-T Axes : 000 037 -24 degrees QTc Int : 400 ms Atrial fibrillation with rapid ventricular response Low voltage QRS Nonspecific T wave abnormality Abnormal ECG When compared with ECG of 29-DEC-2021 06:59, Nonspecific T wave abnormality now evident in Lateral leads Confirmed by Austin Muniz ([id number]) on 06/26/2022 8:51:19 AM Referred By: REFERRED SELF Confirmed By:Austin Muniz
[2022-06-26 08:57] LABS: D Dimer 1260 ug/L FEU (0-500)
[2022-06-26] MEDS ORDERED: METOPROLOL TARTRATE 1 MG/ML VIAL IV STA (08:59)
--- NOTE | 2022-06-26 09:14 | History & Physical Report ---
Date of Service June 26, 2022 Assessment & Plan (1) Atrial fibrillation with RVR: Plan: 42-year-old male past medical history significant for atrial fib off of beta- blockade and warfarin for the last several weeks, tobacco use disorder, type 2 diabetes, sleep apnea, morbid obesity with a BMI of 84.7 presented for chest pain and worsening dyspnea, admitted for A. fib with rapid ventricular response with evidence of congestive heart failure on chest x-ray. Atrial fibrillation with rapid ventricular response: Presented with heart rates 30o160q, with EKG confirmed A. fib. This is in the setting of him having self discontinued his atrial fibrillation medications due to perceived side effects. Patient given several doses of Lopressor 5 mg IV with improvement in his heart rates. Cardiology consulted and appreciate recommendations: Increase home metoprolol to 50 mg every 6 hours. Switched patient from warfarin to Eliquis 5 mg twice daily; though there is lack of data regarding efficacy of DOAC in patients with high BMI, risk/benefit was considered given that patient essentially refuses to take warfarin moving forward. Can check trough drug concentration level after receiving at least 5 doses (earliest would be evening of 06/28). Treatment of pulmonary edema and CHF below. (2) New onset of congestive heart failure: Plan: Echocardiogram performed on 06/26 shows LVEF of 40-50%, though difficult to assess due to atrial fibrillation. Right ventricular systolic function was also reported to be moderately reduced. There was also noted to be mild to moderate global hypokinesis of the left ventricle. On admission was given Lasix 40 mg IV x1; will continue Lasix 40 mg IV twice daily with daily BMP to monitor renal function. Monitor strict intake and output; had to educate patient on this as he was voiding in the toilet despite urging to collect urine for measurements. (3) Chest pain: Plan: Troponin trend negative, no evidence of ACS. Cardiology consulted as above. (4) Heart failure with mid-range ejection fraction: Plan: see above (5) Tobacco abuse disorder: Plan: 10 pack years smoking history. No formal diagnosis of COPD. Nicotine patch offered; declined. Patient was given Xopenex neb x1 due to complaints of wheezing and shortness of breath, and he did have a little bit of wheezing on exam. Did discuss however that have to be careful with nebulizers given his A. fib with RVR. Should have outpatient follow up with a Pressure Vessel Inspector, as suspect patient would benefit from daily inhalers for COPD (and also likely has some OHS/restrictive disease given body habitus) however has not had PFTs. Patient is saturating to 96% on room air. Mucinex BID for secretions. (6) Type II diabetes mellitus: Plan: History of type 2 diabetes on metformin at home. A1c this admission pending; last A1c in December was 6.9%. Diabetic education while admitted. Holding metformin in favor of basal/bolus insulin; titrate as necessary. (7) Severe sleep apnea: Plan: Noncompliant with CPAP. History of Present Illness Chief Complaint: Chest pain, shortness of breath Primary Care Provider: Jamarcus Cramer MD 42-year-old male past medical history significant for atrial fib off of beta- blockade and warfarin for the last several weeks, tobacco use disorder, type 2 diabetes, sleep apnea, morbid obesity with a BMI of 84.7 presented to the ER for shortness of breath and bilateral lower extremity swelling that been worsening over the last several weeks, with development of chest pain this morning on waking. Chest pain was left-sided without radiation to the arm or neck. It was worse, as well as his shortness of breath, with ambulation. In the ER patient was noted to have heart rates in the 130s with A. fib on telemetry, which was also confirmed on EKG. EKG also showed new T wave inversions in lateral leads from previous study. Lab work showed elevated D-dimer to 1200. Lab work othe rwise unremarkable and initial troponin WNL. Patient was unable to have CT PE protocol due to body habitus, so PE could not be ruled out. Chest x-ray showed evidence of congestive heart failure. Patient was given 40 mg IV Lasix, Lopressor 5 mg IV x1, and hospitalist service was consulted for admission for atrial fibrillation with rapid ventricular response and suspected new onset CHF. On my interview patient reports that he stopped taking both his warfarin and his metoprolol several weeks ago due to "feeling lightheaded and unwell on them". He follows with Dr. Hale with [facility]. He has been on Xarelto in the past but had perceived side effects and so this was stopped. He is a current every day smoker of 1/2 pack per day since age 19, and reports that he has to use his albuterol inhaler/nebulizer relatively often due to trouble breathing. He has been diagnosed with sleep apnea in the past, however has not tolerated facemask and therefore does not use CPAP. Allergies Allergy/AdvReac Type Severity Reaction Status Date / Time No Known Allergies Allergy Verified 05/10/22 08:13 Home Medications Medication Instructions Recorded Confirmed Type albuterol sulfate 2.5 mg/3 mL 2.5 mg inhalation .COMPLEX PRN 09/01/21 05/10/22 History (0.083 %) solution for nebulization Shortness Of Breath metformin 500 mg tablet 500 mg PO BID #60 tabs 11/07/21 05/10/22 Rx albuterol sulfate 90 mcg/actuation 1 puff inhalation Q6H PRN 01/04/22 05/10/22 Rx aerosol inhaler (Ventolin HFA) shortness of breath or wheezing #18 grams metoprolol tartrate 50 mg tablet 50 mg PO BID #60 tabs 01/12/22 05/10/22 Rx varenicline 1 mg tablet (Chantix) 1 mg PO BID #56 tabs 03/02/22 05/10/22 Rx warfarin 5 mg tablet 5 mg PO DAILY #30 tabs 03/02/22 05/10/22 Rx cephalexin 500 mg capsule 500 mg PO TID #21 caps 05/10/22 05/10/22 Rx ofloxacin 0.3 % ear drops 10 drp otic (ear) BID #5 mL 05/10/22 05/10/22 Rx Past Med/Surg History Medical History Anemia Atrial fibrillation BMI 60.0-69.9, adult BMI currently 66.4 Dyslipidemia Low testosterone Metabolic syndrome Morbid obesity Nocturnal hypoxia Retrosternal chest pain Severe sleep apnea pt does not use CPAP as ordered Smokes 1 pack of cigarettes per day SOB (shortness of breath) Type II diabetes mellitus Surgical History History of adenoidectomy History of appendectomy History of wisdom tooth extraction Family History Father Hypertension Grandfather Myocardial infarction Unknown Obese Brother Valvular heart disease Other No family history of adverse response to anesthesia Social History Smoking Status: Current every day smoker Tobacco Type: Cigarettes Age Started Using Tobacco: 19; packs per day: 0.5; Cigarettes Per Day: 20; Second Hand Exposure: No; Do You Dip or Chew Tobacco: No; Tobacco Cessation Education Requested by Patient: Yes Hx Alcohol Use: No Hx Substance Use: No Preferred Language: Bulgarian Communication Ability: Effective Interactive Multimedia Designer Required: No Beliefs That Will Affect Care: None marital status details: Current Living Situation: Significant Other Current Living Situation Comment: ex and youngest son current occupational status: employed current occupation: [employer] Other Information That Helps Us Care for You: No Feels Safe at Home: Yes Safety Concerns: Feels Safe At This Time Childhood Exposure to Second-Hand Smoke: No Physical Activity Frequency: Does not Exercise Seatbelt Use: never Assistive Devices: Glasses Review of Systems Review of Systems: All systems reviewed & are unremarkable except as noted in HPI & below Constitutional: + malaise; no fever and no chills Eyes: no blind spots and no diplopia Ear, Nose, Mouth, Throat: no nasal congestion and no epistaxis Respiratory: + cough (chronic, every day smoker) and + dyspnea (worse with exertion, for last several weeks) Cardiovascular: + chest pain (started on waking at 5am) and + edema (over last few weeks worse); no palpitations Gastrointestinal: no abdominal pain, no constipation and no diarrhea/loose stools Genitourinary: no dysuria or no hematuria Musculoskeletal: no back pain and no neck pain Integumentary: no rash and no skin ulcer Neurologic: no localized weakness and no loss of sensation Psychiatric: no behavioral changes and no confusion Endocrine: no fatigue, no polydipsia and no polyuria Hematologic / Lymphatic: no easy bleeding and no easy bruising Physical Exam Constitutional: well developed and + morbidly obese; no acute distress Eyes: PERRL, conjunctivae normal, anicteric sclerae ENMT: external ear and nose normal, oropharynx normal Neck: trachea midline, no thyromegaly (Thick neck) Respiratory: normal respiratory effort, lungs clear to auscultation no respiratory distress Cardiovascular: Heart rate irregularly irregular, tachycardic to the 130s on telemetry No murmurs 3+ pitting edema to bilateral lower extremities to the level of the mid silva Gastrointestinal (Abdomen): protuberant abdomen unable to palpate for organomegaly no abdominal tenderness to palpation Musculoskeletal: no cyanosis or clubbing, extremities motor strength 5/5 Skin: no rashes, warm and dry Neurologic: AAOx3, normal speech. PERRLA, EOMI, no nystagmus. Bilateral UE, LE, and face without sensory or motor deficits. Psychiatric: A+Ox3, euthymic affect Results & Data Results & Data ([facility]) Vital Signs (Past 12 Hours) Vital Signs Temp Pulse Pulse Resp BP BP Pulse Ox 06/26/22 08:32 120 H 19 96 06/26/22 06:41 118 H 22 97 06/26/22 06:41 36.3 C L 118 H 22 122/85 96 06/26/22 06:41 97 06/26/22 06:41 36.3 C L 118 H 24 122/58 L 97 O2 Del Method O2 Flow Rate 06/26/22 08:32 Nasal Cannula 2 06/26/22 06:41 Nasal Cannula 2 06/26/22 06:41 Nasal Cannula 2 06/26/22 06:41 Nasal Cannula 2 06/26/22 06:41 Nasal Cannula 2 PG Care Time/CCT Total # of Minutes Spent Total Time Spent with Patient: Total time spent is greater than 50% in coordination of care (as documented) at patient's floor/unit and/or counseling patient: Coding Level of Care Code 09427 Initial Inpt Care Lvl 3 Diagnoses Atrial fibrillation with RVR I48.91 New onset of congestive heart failure I50.9 Chest pain R07.9 Heart failure with mid-range ejection fraction I50.22 Tobacco abuse disorder Z72.0 Type II diabetes mellitus E11.9 Severe sleep apnea G47.30
[2022-06-26] MEDS ORDERED: ONDANSETRON INJ 2 MG/ML 2 ML VIAL IV PRN (10:55)
[2022-06-26] MEDS ORDERED: POLYETHYLENE (MIRALAX) 17 GM PACK PO PRN (10:55)
--- NOTE | 2022-06-26 11:02 | XCELERA ---
[id number]
[2022-06-26] MEDS ORDERED: METOPROLOL TARTRATE 50 MG TAB PO SCH (11:15)
[2022-06-26] MEDS ORDERED: METOPROLOL TARTRATE 1 MG/ML VIAL IV PRN (12:23)
[2022-06-26] MEDS ORDERED: CARBOHYDRATES FOR HYPOGLYCEMIA PO PRN (12:24)
[2022-06-26] MEDS ORDERED: GLUCOSE 40% GEL 15 GM TUBE PO PRN (12:24)
[2022-06-26] MEDS ORDERED: DEXTROSE 50% 50 ML SYRINGE IV PRN (12:24)
[2022-06-26] MEDS ORDERED: GLUCOSE 10 TAB/TUBE PO PRN (12:24)
[2022-06-26] MEDS ORDERED: GLUCAGON FOR INJ 1 MG VIAL SQ PRN (12:24)
--- NOTE | 2022-06-26 12:37 | Cardiology Consultation ---
Date of Consultation June 26, 2022 Assessment & Plan (1) Atrial fibrillation with RVR: (2) New onset of congestive heart failure: (3) Heart failure with mid-range ejection fraction: (4) Severe sleep apnea: (5) Type II diabetes mellitus: (6) BMI 70 and over, adult: Plan 42-year-old man with multiple comorbidities with new onset atrial fibrillation December 2021 and now with new onset mild congestive heart failure and persistent atrial fibrillation with rapid ventricular rate. Left ventricular systolic function has declined modestly (EF-40-50%), likely due to uncontrolled ventricular rate, resulting in his current new onset CHF. Agree with furosemide 40 mg IV daily or BID (depending upon output) for diuresis, transitioning to oral furosemide upon discharge. Favor beta-elizabeth over calcium channel elizabeth since his blood pressure does not run high. He has not shown a tendency to bradycardia, therefore would increase metoprolol tartrate from 50 mg twice daily to 50 mg every 6 hours with hold orders for heart rate less than 60 bpm or systolic blood pressure less than 100 mmHg. Currently anticoagulated with heparin, based on my initial conversation with him he is unlikely to be compliant with reinstituting warfarin. The primary reason for choosing warfarin over one of the direct oral anticoagulants is the lack of data at high BMI rather than demonstrated inefficacy. As such, could utilize apixaban 5 mg twice daily and check trough drug concentration after he has received at least 5 doses to ensure his level is above the minimum obtained during dosing trials. He was on Xarelto earlier but also had perceived side effects. He had a nondiagnostic dobutamine stress echocardiogram but no evidence of ischemia at 75% maximum predicted heart rate several years ago, currently normal biomarkers and absence of angina suggest lack of any ischemic component to his current presentation. Patient follows with Dr. Hale, at discharge a follow-up office visit should be scheduled. History of Present Illness Reason for Consultation: Ninoska galan RVR Requesting Physician: Inna Crawford DO Attending Physician: Inna Crawford DO History of Present Illness 42-year-old man with morbid obesity (BMI 83), persistent atrial fibrillation (noncompliant with metoprolol/warfarin), untreated severe sleep apnea, ? asthma (uses beta agonist inhalers) and diabetes mellitus (metformin) who was admitted today (06/26/2022) with progressive dyspnea on exertion, orthopnea, and leg edema and is found to have persistent atrial fibrillation with rapid ventricular response. He has not been taking his warfarin or metoprolol lately, since he felt that they were causing him to be weak and fatigued. He denies chest pain at any time. Did note tachypalpitations earlier but these have resolved with some degree of rate control after receiving IV metoprolol. No dyspnea at rest but notes dyspnea with minimal activity. At the time of my evaluation, he had no somatic complaints at rest. Telemetry showed atrial fibrillation with rapid ventricular response ranging from 110 bpm to 160 bpm. Allergies Allergy/AdvReac Type Severity Reaction Status Date / Time No Known Allergies Allergy Verified 05/10/22 08:13 Home Medications Medication Instructions Recorded Confirmed Type albuterol sulfate 2.5 mg/3 mL 2.5 mg inhalation .COMPLEX PRN 09/01/21 05/10/22 History (0.083 %) solution for nebulization Shortness Of Breath metformin 500 mg tablet 500 mg PO BID #60 tabs 11/07/21 05/10/22 Rx albuterol sulfate 90 mcg/actuation 1 puff inhalation Q6H PRN 01/04/22 05/10/22 Rx aerosol inhaler (Ventolin HFA) shortness of breath or wheezing #18 grams metoprolol tartrate 50 mg tablet 50 mg PO BID #60 tabs 01/12/22 05/10/22 Rx varenicline 1 mg tablet (Chantix) 1 mg PO BID #56 tabs 03/02/22 05/10/22 Rx warfarin 5 mg tablet 5 mg PO DAILY #30 tabs 03/02/22 05/10/22 Rx cephalexin 500 mg capsule 500 mg PO TID #21 caps 05/10/22 05/10/22 Rx ofloxacin 0.3 % ear drops 10 drp otic (ear) BID #5 mL 05/10/22 05/10/22 Rx Patient History Medical History Anemia Atrial fibrillation BMI 60.0-69.9, adult BMI currently 66.4 Dyslipidemia Low testosterone Metabolic syndrome Morbid obesity Nocturnal hypoxia Retrosternal chest pain Severe sleep apnea pt does not use CPAP as ordered Smokes 1 pack of cigarettes per day SOB (shortness of breath) Type II diabetes mellitus Surgical History History of adenoidectomy History of appendectomy History of wisdom tooth extraction Family History Father Hypertension Grandfather Myocardial infarction Unknown Obese Brother Valvular heart disease Other No family history of adverse response to anesthesia Social History Smoking Status: Current every day smoker Tobacco Type: Cigarettes Age Started Using Tobacco: 19; packs per day: 0.5; Cigarettes Per Day: 20; Second Hand Exposure: No; Do You Dip or Chew Tobacco: No; Tobacco Cessation Education Requested by Patient: Yes Hx Alcohol Use: No Hx Substance Use: No Preferred Language: Wolof Communication Ability: Effective Classer Required: No Beliefs That Will Affect Care: None marital status details: Current Living Situation: Significant Other Current Living Situation Comment: ex and youngest son current occupational status: employed current occupation: [employer] Other Information That Helps Us Care for You: No Feels Safe at Home: Yes Safety Concerns: Feels Safe At This Time Childhood Exposure to Second-Hand Smoke: No Physical Activity Frequency: Does not Exercise Seatbelt Use: never Assistive Devices: Glasses Physical Exam Physical Exam: Adult white male with BMI 83 appears mildly uncomfortable but not acutely distressed. BP normotensive. Pulse 126 bpm and irregular. Skin: no ecchymoses or generalized lesions. HEENT: unremarkable. Neck: Difficult to assess JVD due to habitus, no obvious carotid bruits. Lungs: Moderately decreased breath sounds without obvious crackles. Occasional expiratory wheeze. No accessory muscle use. Cardiac: Tachycardic/irregular rhythm, mildly reduced heart tones, no obvious murmur or gallop on difficult exam (due to tachycardia and habitus). Abdomen: benign. Extremities: 12+ pretibial edema with mild rubor and good capillary refill, distal pulses intact. Neurologic: Somewhat taciturn affect, nonfocal. Results & Data ([facility]) Laboratory Results High-sensitivity troponin 9.6. Normal electrolytes, BUN 16, creatinine 1.01. Diagnostic Findings ECG showed atrial fibrillation with rapid ventricular response of 123 bpm, low voltage QRS and nonspecific T wave flattening. Compared with 12/29/2021 ECG, nonspecific T wave abnormality is more pronounced. Chest x-ray showed cardiomegaly with evidence of congestive heart failure/pulmonary edema. Echocardiogram today was technically difficult/limited but showed mild to moderate global hypokinesis of the left ventricle (EF 40 to 50% range), moderately dilated RV with mildly reduced systolic function, no obvious valvular disease on technically limited Doppler. Compared with 12/29/2021 study, mild decline in left ventricular systolic function noted. PG Care Time/CCT Total # of Minutes Spent Total Time Spent with Patient: Total time spent is greater than 50% in coordination of care (as documented) at patient's floor/unit and/or counseling patient: Coding Level of Care Code 62017 Inpt Consult Level 4 Diagnoses Atrial fibrillation with RVR I48.91 New onset of congestive heart failure I50.9 Heart failure with mid-range ejection fraction I50.22 Severe sleep apnea G47.30 Type II diabetes mellitus E11.9 BMI 70 and over, adult Z68.45
[2022-06-26] MEDS: ACETAMINOPHEN 325 MG TAB PO PRN ×2 (13:13→22:46)
[2022-06-26] MEDS: METOPROLOL TARTRATE 50 MG TAB PO SCH ×2 (13:47→19:27)
[2022-06-26 15:00] LABS: Partial Thromboplastin Ratio 1.1; Partial Thromboplastin Time 31.3 Seconds (21.0-31.0)
[2022-06-26] MEDS ORDERED: LEVALBUTEROL HCL 0.63 MG/3 ML NEB NEB STA (16:10)
--- NOTE | 2022-06-26 17:02 | Electrocardiogram Report ---
Test Reason : Blood Pressure : / mmHG Vent. Rate : 134 BPM Atrial Rate : 115 BPM P-R Int : 000 ms QRS Dur : 086 ms QT Int : 276 ms P-R-T Axes : 000 092 -01 degrees QTc Int : 412 ms Atrial fibrillation with rapid ventricular response Rightward axis Diffuse Nonspecific T wave abnormality Abnormal ECG When compared with ECG of 26-JUN-2022 06:35, No significant change Confirmed by Austin Muniz ([id number]) on 06/26/2022 5:01:47 PM Referred By: REFERRED SELF Confirmed By:Austin Muniz
[2022-06-26] MEDS: INSULIN ASPART PER UNIT SC SCH ×2 (17:10→21:15)
[2022-06-26] MEDS: LANTUS PER UNIT CHARGE SQ SCH (21:14)
[2022-06-26] MEDS: guaiFENesin 600 MG TABCR PO SCH (21:14)
[2022-06-26] MEDS: BENZONATATE 100 MG CAPSULE PO SCH (21:14)
[2022-06-26] MEDS: FUROSEMIDE 40 MG/4 ML VIAL IV SCH (21:14)
[2022-06-26] MEDS: APIXABAN 5 MG TABLET PO SCH (21:14)
[2022-06-27] MEDS: METOPROLOL TARTRATE 50 MG TAB PO SCH ×4 (03:01→19:09)
[2022-06-27 06:14] LABS: Basophils # (auto) 0.02 K/uL (0-0.2); Basophils % (auto) 0.2 %; Eosinophils % (auto) 1.1 %; Hematocrit (blood only) 41.3 % (40.1-51.0); Hemoglobin 12.9 g/dl (14.0-18.0); Immature Granulocytes # (auto) 0.02 K/uL (0.00-0.02); Immature Granulocytes % (auto) 0.2 %; Lymphocytes # (auto) 2.16 K/uL (1.2-3.4); Lymphocytes % (auto) 24.7 %; Mean Corpuscular Hemoglobin 29.1 pg (25.0-34.0); Mean Corpuscular Hgb Conc 31.2 g/dL (32.0-36.0); Mean Corpuscular Volume 93.2 fL (80.0-100.0); Mean Platelet Volume 9.8 fL (9.4-12.4); Monocytes # (auto) 0.72 K/uL (0.24-0.82); Monocytes % (auto) 8.2 %; Neutrophils # (auto) 5.74 K/uL (1.4-6.5); Neutrophils % (auto) 65.6 %; Platelet Count 275 K/uL (130-400); RDW Coefficient of Variation 17.2 % (11.5-14.5); RDW Standard Deviation 58.9 fL (36.4-46.3); Red Blood Count 4.43 M/uL (4.63-6.08); White Blood Count 8.76 K/ul (4.8-10.8)
[2022-06-27 06:37] LABS: BUN Creatinine Ratio 16.7 (10-20); Calcium 8.8 mg/dl (8.5-10.1); Creatinine Clr Calc Pharmacy 213.5 ml/min; Est GFR (African American) 120.8 ml/min; Est GFR (Non-African American) 104.2 ml/min; Potassium 4.3 mmol/L (3.5-5.1)
[2022-06-27 07:47] LABS: Estimated Average Glucose 148 mg/dl; Hemoglobin A1C 6.8 % (4.5-5.6)
--- NOTE | 2022-06-27 07:52 | Hospitalist Progress Note ---
Date of Service June 27, 2022 Assessment & Plan (1) Atrial fibrillation with RVR: Plan: 42-year-old male past medical history significant for atrial fib off of beta- blockade and warfarin for the last several weeks, tobacco use disorder, type 2 diabetes, sleep apnea, morbid obesity with a BMI of 84.7 presented for chest pain and worsening dyspnea, admitted for A. fib with rapid ventricular response with evidence of congestive heart failure on chest x-ray. Atrial fibrillation with rapid ventricular response: Presented with heart rates [id number], with EKG confirmed A. fib, in the setting of him having self discontinued his atrial fibrillation medications due to perceived side effects. Patient given several doses of Lopressor 5 mg IV with improvement in his heart rates. Cardiology consulted and appreciate recommendations: Increased home metoprolol to 75 mg every 6 hours. Patient denies symptoms he was experiencing prior to admission that caused him to stop his medication, which suggests Sx secondary to medical issues as compared to medications. Switched patient from warfarin to Eliquis 5 mg twice daily on 06/26; though there is lack of data regarding efficacy of DOAC in patients with high BMI, risk/benefit was considered given that patient essentially refuses to take warfarin moving forward. Can check trough drug concentration level after receiving at least 5 doses (earliest would be evening of 06/28). Patient will not take Xarelto due to perceived side effects. Treatment of pulmonary edema and CHF below. Highly recommended treatment of CHRISTIANO especially given patient's AFib, as I am concerned that if we do become able to cardiovert him that he will transition back into AFib due to unresolved/untreated CHRISTIANO. (2) New onset of congestive heart failure: Plan: Echocardiogram performed on 06/26 shows LVEF of 40-50%, though difficult to assess due to atrial fibrillation. Right ventricular systolic function was also reported to be moderately reduced. There was also noted to be mild to moderate global hypokinesis of the left ventricle. On admission was given Lasix 40 mg IV x1; will continue Lasix 40 mg IV twice daily with daily BMP to monitor renal function, daily standing weights if possible. Patient will not use urinal to monitor output despite urging. (3) Chest pain: Plan: Troponin trend negative, no evidence of ACS. Cardiology consulted as above. (4) Heart failure with mid-range ejection fraction: Plan: see above (5) Tobacco abuse disorder: Plan: Over 10 pack years smoking history. No formal diagnosis of COPD. Nicotine patch offered; declined. Patient was given Xopenex neb x1 on 06/26 due to complaints of wheezing and shortness of breath, and he did have a little bit of wheezing on exam. Did discuss however that have to be careful with nebulizers given his A. fib with RVR. Should have outpatient follow up with a Continuous Improvement Facilitator, as suspect patient could have COPD, as well as OHS/restrictive disease given body habitus, however has not had PFTs. Anoro Ellipta started daily. Patient is saturating to 96% on room air. Mucinex BID for secretions. (6) Type II diabetes mellitus: Plan: History of type 2 diabetes on metformin at home. A1c 6.8% this admission. Diabetic education while admitted. Holding metformin in favor of basal/bolus insulin; titrate as necessary. Prescriptions for Verio Glucometer, test strips, lancets sent as patient seems willing to check BSGs daily. Patient would be an excellent candidate for a GLP-1 medication such as semaglutide for weight loss, DM2, and CHF. (7) Severe sleep apnea: Plan: Noncompliant with CPAP. Plan FULL CODE DM2, heart healthy, low sodium diet Eliquis for DVT ppx Telemetry status Admission and Anticipated Discharge Date Admission Date: June 26, 2022 Subjective Overnight no acute events. HR in 90s-100s overnight, still elevated but improved from admission. Patient had many unmeasured voids (refused to use urinal or other forms of collection) and today patient's weight down 12kg from yesterday. He reports that his breathing is better than yesterday and his legs feel less "tight". He had some discomfort in the baribed and slept in a reclining chair. No other complaints. Review of Systems Constitutional: no fever, no chills and no malaise Eyes: no blind spots and no diplopia Ear, Nose, Mouth, Throat: no nasal congestion and no epistaxis Respiratory: + cough (chronic, every day smoker) and + dyspnea (improved from admission) Cardiovascular: + edema (improved from yesterday); no chest pain and no palpitations Gastrointestinal: no abdominal pain, no constipation and no diarrhea/loose stools Genitourinary: no dysuria or no hematuria Musculoskeletal: no back pain and no neck pain Integumentary: no rash and no skin ulcer Psychiatric: no irritability and no confusion Endocrine: no fatigue, no polydipsia and no polyuria (frequent urination due to Lasix inpatient dosing) Hematologic / Lymphatic: no easy bleeding and no easy bruising Physical Exam Constitutional: well developed and + morbidly obese; no acute distress Eyes: PERRL, conjunctivae normal, anicteric sclerae ENMT: external ear and nose normal, oropharynx normal Neck: trachea midline, no thyromegaly (Thick neck) Respiratory: normal respiratory effort, lungs clear to auscultation no respiratory distress few wheezes Cardiovascular: HR irregularly irregular, mildly tachycardic no murmurs 2+ pretibial edema Gastrointestinal (Abdomen): protuberant abdomen, soft, nontender Musculoskeletal: no cyanosis or clubbing, extremities motor strength 5/5 Skin: no rashes, warm and dry Psychiatric: A+Ox3, euthymic affect Results & Data Results & Data ([place]) Vital Signs (Past 12 Hours) Vital Signs Temp Pulse Pulse Resp BP BP Pulse Ox 06/27/22 03:08 36.6 C 105 H 20 110/77 98 06/26/22 22:17 109 H 06/26/22 23:37 36.7 C 97 H 20 115/90 96 06/26/22 19:54 36.6 C 91 H 20 94/68 L 96 O2 Del Method O2 Flow Rate 06/27/22 03:08 Nasal Cannula 2 06/26/22 22:17 06/26/22 23:37 Nasal Cannula 2 06/26/22 19:54 Room Air PG Care Time/CCT Total # of Minutes Spent Total Time Spent with Patient: Total time spent is greater than 50% in coordination of care (as documented) at patient's floor/unit and/or counseling patient: Coding Level of Care Code 85088 Subseq Hosp Care Lvl 3 Diagnoses Atrial fibrillation with RVR I48.91 New onset of congestive heart failure I50.9 Chest pain R07.9 Heart failure with mid-range ejection fraction I50.22 Tobacco abuse disorder Z72.0 Type II diabetes mellitus E11.9 Severe sleep apnea G47.30
[2022-06-27] MEDS: LANTUS PER UNIT CHARGE SQ SCH ×2 (08:28→20:53)
[2022-06-27] MEDS: INSULIN ASPART PER UNIT SC SCH ×4 (08:28→20:31)
[2022-06-27] MEDS: FUROSEMIDE 40 MG/4 ML VIAL IV SCH ×2 (08:29→20:52)
[2022-06-27] MEDS: BENZONATATE 100 MG CAPSULE PO SCH ×3 (08:30→20:52)
[2022-06-27] MEDS: APIXABAN 5 MG TABLET PO SCH ×2 (08:30→20:52)
[2022-06-27] MEDS: guaiFENesin 600 MG TABCR PO SCH ×2 (08:30→20:52)
[2022-06-27] MEDS ORDERED: FUROSEMIDE 40 MG/4 ML VIAL IV SCH (09:00)
[2022-06-27] MEDS ORDERED: Flu Vaccine (Fluarix) 0.5mL SYR (Standard Dose) IM ONE (09:00)
[2022-06-27] MEDS ORDERED: PNEUMOCOCCAL Polysaccharide Vaccine 25mcg/0.5mL vial/Syr IM ONE (09:00)
--- NOTE | 2022-06-27 11:20 | Cardiology Progress Note ---
Date of Service June 27, 2022 Assessment & Plan (1) Atrial fibrillation with RVR: (2) CHF (congestive heart failure): (3) Cardiomyopathy: (4) Anticoagulant long-term use: Plan 1. Atrial fibrillation: His heart rate still remains fast, around 100 bpm on average at bedrest. With his cardiomyopathy this is not ideal, I would recommend trying to get better rate control. His beta-blockade was increased to 50 mg every 6 hours yesterday which is probably not a high dose for someone his size. I am going to increase that to 75 mg every 6 hours although we probably do not have to give it on that schedule (150 mg twice daily?). 2. Congestive heart failure: He probably has combined diastolic and systolic heart failure, atrial fibrillation probably contributed. It is hard to determine his volume status and I do not know that his weights can be trusted. I would continue diuresis. 3. Cardiomyopathy: Hopefully this is rate related, only time will tell if this improves with rate control and possibly conversion of his rhythm which we cannot do now. At discharge he should probably be started on metoprolol succinate at the same dose as his combined inpatient metoprolol tartrate dose, due to cardiomyopathy data suggesting the succinate preparation. 4. Anticoagulation: He should have anticoagulation, especially if we are considering converting his rhythm in the future. He had declined warfarin in the past due to side effects, although today he seems willing to consider it. That would be best, the next choice would probably be Xarelto (due to his weight and some data using Xarelto) followed by Ricardo. Admission and Anticipated Discharge Date Admission Date: June 26, 2022 Subjective Patient is in a bariatric chair at his bedside, he appears sleepy and is complaining of fatigue but has no other complaints. He is not aware of palpitations. Physical Exam Physical Exam: Constitutional: Alert, cooperative and in no distress. Morbidly obese. HEENT: Unremarkable Neck: No jugular venous distention, carotid pulses are normal and equal bilaterally without bruits. Pulmonary: Clear to auscultation bilaterally. Cardiac: Irregular rhythm with no murmur, gallop or rub. Abdomen: Soft, nontender with normal bowel sounds. Extremities: +2 bilateral pretibial edema. Neurologic: No focal findings. Gait was not tested. Skin: No rash, ecchymoses or petechiae. Results & Data ([facility]) Vital Signs (Past 12 Hours) Vital Signs Temp Pulse Pulse Resp BP Pulse Ox O2 Del Method 06/27/22 08:00 98 H 06/27/22 08:00 Room Air, Nasal Cannula 06/27/22 07:30 37.0 C 97 H 18 115/68 97 Room Air 06/27/22 03:08 36.6 C 105 H 20 110/77 98 Nasal Cannula 06/26/22 23:37 36.7 C 97 H 20 115/90 96 Nasal Cannula O2 Flow Rate 06/27/22 08:00 06/27/22 08:00 2 06/27/22 07:30 06/27/22 03:08 2 06/26/22 23:37 2 Laboratory Results Cardiac Enzymes 06/26/22 06/26/22 06/27/22 Range/Units 12:14 19:15 00:27 Troponin I High Sens 10.1 9.3 10.0 (0-20) pg/ml Coagulation 06/26/22 Range/Units 14:22 APTT 31.3 H (21.0-31.0) Seconds CBC 06/27/22 Range/Units 05:40 WBC 8.76 (4.8-10.8) K/ul RBC 4.43 L (4.63-6.08) M/uL Hgb 12.9 L (14.0-18.0) g/dl Hct 41.3 (40.1-51.0) % Plt Count 275 (130-400) K/uL Neut # (Auto) 5.74 (1.4-6.5) K/uL Lymph # (Auto) 2.16 (1.2-3.4) K/uL Gallia # (Auto) 0.72 (0.24-0.82) K/uL Eos # (Auto) 0.10 (0-0.50) K/uL Baso # (Auto) 0.02 (0-0.2) K/uL Comprehensive Metabolic Panel 06/27/22 Range/Units 05:40 Sodium 137 (136-145) mmol/L Potassium 4.3 (3.5-5.1) mmol/L Chloride 106 (98-107) mmol/L Carbon Dioxide 24 (21-32) mmol/L BUN 15 (6-23) mg/dl Creatinine 0.90 (0.6-1.4) mg/dl Glucose 106 H (70-99(Fasting)) mg/dl Calcium 8.8 (8.5-10.1) mg/dl Intake and Output 06/26/22 06/27/22 06/27/22 22:59 06:59 14:59 Intake Total 764.033 / 1208.200 Balance 764.033 / 1208.200 Intake: IV 524.033 / 693.200 Heparin Sodium/Dextrose 25,000 524.033 / 693.200 units In 500 ml @ 2,800 UNITS/ HR 56 mls/hr IV .[id number] TOI Rx# :[id number] Oral 240 / 515 Other: # Unmeasured Voids 2 Weight 250.45 kg Weight Measurement Method Standing Scale Diagnostic Findings Telemetry: Atrial fibrillation, heart rate averaging around 100 bpm with very little diurnal heart rate variation PG Care Time/CCT Total # of Minutes Spent Total Time Spent with Patient: Total time spent is greater than 50% in coordination of care (as documented) at patient's floor/unit and/or counseling patient: Coding Level of Care Code 21283 Subseq Hosp Care Lvl 3 Diagnoses Atrial fibrillation with RVR I48.91 CHF (congestive heart failure) I50.41 Heart failure type: combined systolic and diastolic Heart failure chronicity: acute Cardiomyopathy I42.9 Anticoagulant long-term use Z79.01 (1) CHF (congestive heart failure) Heart failure type: combined systolic and diastolic Heart failure chronicity: acute Qualified Code(s): I50.41 - Acute combined systolic (congestive) and diastolic (congestive) heart failure
[2022-06-27] MEDS: UMECLIDINIUM/VILANTEROL 62.5/25MCG 7 PUFFS/INHALER INH SCH (11:55)
[2022-06-27] MEDS ORDERED: METOPROLOL TARTRATE 25 MG TAB PO SCH (20:00)
[2022-06-27] MEDS ORDERED: METOPROLOL TARTRATE 25 MG TAB PO ONE (20:00)
[2022-06-28] MEDS: METOPROLOL TARTRATE 25 MG TAB PO SCH ×2 (03:01→08:56)
[2022-06-28 06:50] LABS: Basophils # (auto) 0.01 K/uL (0-0.2); Basophils % (auto) 0.1 %; Eosinophils # (auto) 0.07 K/uL (0-0.50); Eosinophils % (auto) 0.9 %; Hematocrit (blood only) 41.4 % (40.1-51.0); Hemoglobin 13.1 g/dl (14.0-18.0); Immature Granulocytes # (auto) 0.03 K/uL (0.00-0.02); Immature Granulocytes % (auto) 0.4 %; Lymphocytes # (auto) 1.82 K/uL (1.2-3.4); Lymphocytes % (auto) 23.4 %; Mean Corpuscular Hemoglobin 29.2 pg (25.0-34.0); Mean Corpuscular Hgb Conc 31.6 g/dL (32.0-36.0); Mean Corpuscular Volume 92.2 fL (80.0-100.0); Mean Platelet Volume 9.6 fL (9.4-12.4); Monocytes # (auto) 0.66 K/uL (0.24-0.82); Monocytes % (auto) 8.5 %; Neutrophils % (auto) 66.7 %; Platelet Count 269 K/uL (130-400); RDW Coefficient of Variation 16.6 % (11.5-14.5); RDW Standard Deviation 56.6 fL (36.4-46.3); Red Blood Count 4.49 M/uL (4.63-6.08); White Blood Count 7.79 K/ul (4.8-10.8)
[2022-06-28 07:26] LABS: BUN Creatinine Ratio 20.2 (10-20); Calcium 8.9 mg/dl (8.5-10.1); Creatinine Clr Calc Pharmacy 226.4 ml/min; Est GFR (African American) 124.3 ml/min; Est GFR (Non-African American) 107.2 ml/min; Potassium 4.1 mmol/L (3.5-5.1)
[2022-06-28] MEDS: INSULIN ASPART PER UNIT SC SCH (07:48)
[2022-06-28] MEDS: guaiFENesin 600 MG TABCR PO SCH (08:57)
[2022-06-28] MEDS: BENZONATATE 100 MG CAPSULE PO SCH (08:57)
[2022-06-28] MEDS: FUROSEMIDE 40 MG/4 ML VIAL IV SCH (08:57)
[2022-06-28] MEDS: APIXABAN 5 MG TABLET PO SCH (08:57)
[2022-06-28] MEDS: UMECLIDINIUM/VILANTEROL 62.5/25MCG 7 PUFFS/INHALER INH SCH (08:57)
[2022-06-28] MEDS ORDERED: LANTUS PER UNIT CHARGE SQ SCH (09:00)
--- NOTE | 2022-06-28 10:10 | Cardiology Progress Note ---
Date of Service June 28, 2022 Assessment & Plan (1) Atrial fibrillation with RVR: (2) New onset of congestive heart failure: (3) Heart failure with mid-range ejection fraction: (4) Severe sleep apnea: (5) Type II diabetes mellitus: (6) BMI 70 and over, adult: Plan 42-year-old man with recurrent atrial fibrillation and new onset mild congestive heart failure noted to have mildly reduced left ventricular systolic function (EF-40-50%). Would discharge on furosemide 40 mg p.o. daily, if he has a scale capable of measuring his weight, he could increase furosemide to 80 mg daily for any weight gain of 10 pounds or greater, skip dose for a day for any weight loss of 10 poun ds or greater. Discharge on metoprolol succinate 150 mg twice daily for rate control. Given prior perceived side effects from rivaroxaban and significant compliance issues with warfarin, would discharge on apixaban 5 mg twice daily with further titration as outpatient once apixaban concentration (peak and trough to be drawn today) values become available (in about 8 days). Follow-up with Dr. Hale in 3 to 4 weeks, further apixaban dosing adjustment at that time. Admission and Anticipated Discharge Date Admission Date: June 26, 2022 Subjective No complaints. No chest pain, dyspnea, subjective palpitations, or lightheadedness. Telemetry shows atrial fibrillation with controlled ventricular response (90-100 bpm). Physical Exam Physical Exam: No distress (playing video game during my interview) BP normotensive. Pulse 92 bpm and irregular. Skin: no ecchymoses or generalized lesions. HEENT: unremarkable. Neck: Difficult to assess JVD due to habitus, no obvious carotid bruits. Lungs: Clear. Cardiac: irregular rhythm, mildly reduced heart tones, no obvious murmur or gallop. Abdomen: benign. Extremities: 1+ nontense pretibial edema with mild rubor and good capillary refill, distal pulses intact. Neurologic: Somewhat taciturn affect, nonfocal. Results & Data ([facility]) Vital Signs (Past 12 Hours) Vital Signs Temp Pulse Pulse Resp BP Pulse Ox O2 Del Method 06/28/22 08:00 Room Air 06/28/22 07:39 98.1 F 93 H 18 125/84 98 Room Air 06/28/22 07:34 86 06/28/22 03:00 Room Air 06/28/22 03:01 97.5 F L 91 H 18 123/83 92 06/27/22 23:22 98.2 F 99 H 17 109/81 92 Room Air 06/27/22 22:15 105 H Laboratory Results Normal electrolytes, BUN 17, creatinine 0.84. PG Care Time/CCT Total # of Minutes Spent Total Time Spent with Patient: Total time spent is greater than 50% in coordination of care (as documented) at patient's floor/unit and/or counseling patient: Coding Level of Care Code 97836 Subseq Hosp Care Lvl 3 Diagnoses Atrial fibrillation with RVR I48.91 New onset of congestive heart failure I50.9 Heart failure with mid-range ejection fraction I50.22 Severe sleep apnea G47.30 Type II diabetes mellitus E11.9 BMI 70 and over, adult Z68.45
--- NOTE | 2022-06-28 10:17 | Discharge Summary ---
Discharge Summary Date of Service June 28, 2022 Admission HPI Per Admitting Provider 42-year-old male past medical history significant for atrial fib off of beta- blockade and warfarin for the last several weeks, tobacco use disorder, type 2 diabetes, sleep apnea, morbid obesity with a BMI of 84.7 presented to the ER for shortness of breath and bilateral lower extremity swelling that been worsening over the last several weeks, with development of chest pain this morning on waking. Chest pain was left-sided without radiation to the arm or neck. It was worse, as well as his shortness of breath, with ambulation. In the ER patient was noted to have heart rates in the 130s with A. fib on telemetry, which was also confirmed on EKG. EKG also showed new T wave inversions in lateral leads from previous study. Lab work showed elevated D-dimer to 1200. Lab work otherwise unremarkable and initial troponin WNL. Patient was unable to have CT PE protocol due to body habitus, so PE could not be ruled out. Chest x-ray showed evidence of congestive heart failure. Patient was given 40 mg IV Lasix, Lopressor 5 mg IV x1, and hospitalist service was consulted for admission for atrial fibrillation with rapid ventricular response and suspected new onset CHF. On my interview patient reports that he stopped taking both his warfarin and his metoprolol several weeks ago due to "feeling lightheaded and unwell on them". He follows with Dr. Hale with [facility] [place] [facility]. He has been on Xarelto in the past but had perceived side effects and so this was stopped. He is a current every day smoker of 1/2 pack per day since age 19, and reports that he has to use his albuterol inhaler/nebulizer relatively often due to trouble breathing. He has been diagnosed with sleep apnea in the past, however has not tolerated facemask and therefore does not use CPAP. Admission Exam Per Admitting Provider Constitutional: well developed and + morbidly obese; no acute distress Eyes: PERRL, conjunctivae normal, anicteric sclerae ENMT: external ear and nose normal, oropharynx normal Neck: trachea midline, no thyromegaly (Thick neck) Respiratory: normal respiratory effort, lungs clear to auscultation no respiratory distress Cardiovascular: Heart rate irregularly irregular, tachycardic to the 130s on telemetry No murmurs 3+ pitting edema to bilateral lower extremities to the level of the mid silva Gastrointestinal (Abdomen): protuberant abdomen unable to palpate for organomegaly no abdominal tenderness to palpation Musculoskeletal: no cyanosis or clubbing, extremities motor strength 5/5 Skin: no rashes, warm and dry Neurologic: AAOx3, normal speech. PERRLA, EOMI, no nystagmus. Bilateral UE, LE, and face without sensory or motor deficits. Psychiatric: A+Ox3, euthymic affect Principal Dx & Hospital Course #1 = Principal Diagnosis (1) Atrial fibrillation with RVR: 42-year-old male past medical history significant for atrial fib off of beta- blockade and warfarin for the last several weeks, tobacco use disorder, type 2 diabetes, sleep apnea, morbid obesity with a BMI of 84.7 presented for chest pain and worsening dyspnea, admitted for A. fib with rapid ventricular response with evidence of congestive heart failure on chest x-ray. Atrial fibrillation with rapid ventricular response: Presented with heart rates [id number], with EKG confirmed A. fib, in the setting of him having self discontinued his atrial fibrillation medications due to perceived side effects. Patient given several doses of Lopressor 5 mg IV with improvement in his heart rates. Cardiology consulted and appreciate recommendations: Metoprolol succinate 150mg BID for home for rate control. Switched patient from warfarin to Eliquis 5 mg twice daily on 06/26; though there is lack of data regarding efficacy of DOAC in patients with high BMI, risk/benefit was considered given that patient refuses to take warfarin and Xarelto moving forward. Trough drug concentration level after receiving at least 5 doses pending. Treatment of pulmonary edema and CHF below. Highly recommended treatment of CHRISTIANO especially given patient's AFib. (2) New onset of congestive heart failure: Echocardiogram performed on 06/26 shows LVEF of 40-50%, though difficult to assess due to atrial fibrillation. Right ventricular systolic function was also reported to be moderately reduced. There was also noted to be mild to moderate global hypokinesis of the left ventricle. On admission was given Lasix 40 mg IV x1; will continue Lasix 40 mg PO daily on discharge. Patient not compliant with urinal for I&Os; however patient down 20lbs on day of discharge. Low sodium diet reviewed with patient. (3) Chest pain: Troponin trend negative, no evidence of ACS. Cardiology consulted as above. (4) Heart failure with mid-range ejection fraction: New onset Acute HF with mid-range EF. see above (5) Tobacco abuse disorder: Over 10 pack years smoking history. No formal diagnosis of COPD. Nicotine patch offered; declined. Should have outpatient follow up with a [employer], as suspect patient could have COPD, as well as OHS/restrictive disease given body habitus, however has not had PFTs. Anoro Ellipta started daily. Advised to contact PCP if using albuterol >4 times daily. Patient saturating to 96% on room air on day of discharge. Mucinex BID given for secretions. (6) Type II diabetes mellitus: History of type 2 diabetes on metformin at home. A1c 6.8% this admission. Resume metformin. Prescriptions for Verio Glucometer, test strips, lancets sent as patient seems willing to check BSGs daily. Patient would be an excellent candidate for a GLP-1 medication such as semaglutide for weight loss, DM2, and CHF. Patient seemed interested; PCP follow up. (7) Severe sleep apnea: Noncompliant with CPAP. Plan Dispo: home Discharge Exam Constitutional well developed and + morbidly obese; no acute distress Respiratory normal respiratory effort, lungs clear to auscultation no respiratory distress Cardiovascular 2+ pretibial edema HR irregularly irregular, nontachycardic Psychiatric A+Ox3, euthymic affect Updated Medication List Medication Instructions Recorded Confirmed Type metformin 500 mg tablet 500 mg PO BID #60 tabs 11/07/21 05/10/22 Rx albuterol sulfate 90 mcg/actuation 1 puff inhalation Q6H PRN 01/04/22 05/10/22 Rx aerosol inhaler (Ventolin HFA) shortness of breath or wheezing #18 grams varenicline 1 mg tablet (Chantix) 1 mg PO BID #56 tabs 03/02/22 05/10/22 Rx ofloxacin 0.3 % ear drops 10 drp otic (ear) BID #5 mL 05/10/22 05/10/22 Rx blood sugar diagnostic ([place] TradeTouch #100 ea 06/27/22 Rx Verio test strips) blood-glucose meter ([place] TradeTouch #1 ea 06/27/22 Rx Verio Meter) lancets 33 gauge ([place] TradeTouch Delica #100 ea 06/27/22 Rx Lancets) albuterol sulfate 2.5 mg/3 mL 2.5 mg (3 mL) inhalation .COMPLEX 06/28/22 Rx (0.083 %) solution for nebulization PRN Shortness Of Breath #90 mL apixaban 5 mg tablet (Eliquis) 5 mg PO BID #60 tabs 06/28/22 Rx metoprolol succinate 100 mg 100 mg PO BID #60 tabs 06/28/22 Rx tablet,extended release 24 hr metoprolol succinate 50 mg 50 mg PO BID #60 tabs 06/28/22 Rx tablet,extended release 24 hr umeclidinium 62.5 mcg-vilanterol 1 ea inhalation DAILY #60 ea 06/28/22 Rx 25 mcg/actuation powdr for inhalation (Anoro Ellipta) Hospital Stay Data Consultations 06/26/22 07:49 ED Decision to Admit Stat 06/26/22 10:55 Consult Cardiology Routine Pending Results Patient Have Any Pending Studies at Discharge: Yes (eliquis trough, review with Dr. Muniz) Discharge Instructions Given to Patient (Per Discharging Provider) You were admitted to the hospital for AFib and heart failure. You were given medicine to make you pee, and medicine to get your heart rate under control. Your symptoms got better and you lost 20 pounds in water weight while you were here. You had a heart ultrasound that showed decreased heart function probably due to the AFib. We got your heart rates under control and you were felt to be safe for discharge home with the following recommendations: 1) START Eliquis, one tablet every 12 hours. This should start this evening. This is the new blood thinner medicine to protect you from strokes from AFib. 2) START Lasix (also called furosemide), 1 tablet daily around dinnertime. This medication will make you have to pee. Because of your heart failure, you have to stay away from salt as much as possible. Decrease deli meats, tv dinners, canned soups/veggies as much as possible. 3) START metoprolol succinate. You will take 150mg in the morning and 150mg around dinnertime. This medication does not come in that size so you will have two prescriptions, one for 100mg tablets, and one for 50mg tablets. This medication will help you not have chest pain and trouble breathing from AFib. 4) STOP home metoprolol, and STOP home warfarin. 5) START using the Anoro (inhaler you started in the hospital) once daily for breathing issues. If you have breathing issues despite this, you can use your nebulizer up to 4 times a day. If you are using it more than that, please talk to your family doctor to help get your breathing better. 6) START checking your sugars once daily. You can follow up with your family doctor about diabetes medicines. You would be a good candidate for a medication like Ozempic due to diabetes and your heart troubles. Prescriptions sent to [facility] [address]. Please follow up with Dr. Hale in 3 weeks. If you do not hear from their office for a follow up appointment please call their office for one. This is important to see if your Eliquis dose needs to be changed. Please also follow up with your family doctor. If you have worsening or your symptoms, or other medical concerns, please seek urgent medical attention. Total Time Total Time Spent Total Time Spent (In Minutes): 45 Coding Level of Care Code D/C DAY MANAGEMENT >30 MINS Diagnoses Atrial fibrillation with RVR I48.91 New onset of congestive heart failure I50.9 Chest pain R07.9 Heart failure with mid-range ejection fraction I50.22 Tobacco abuse disorder Z72.0 Type II diabetes mellitus E11.9 Severe sleep apnea G47.30
== END 2022-06-28 10:52 | disposition home or self-care (01) | DRG 308 ==
LOC: ED 06:31 → 2S 09:19

== ENCOUNTER 2022-07-01 07:43 | Inpatient (IN) ==
[2022-07-01] MEDS ORDERED: ASPIRIN CHEW 324 MG PO STA (08:04)
[2022-07-01 08:37] LABS: Basophils # (auto) 0.03 K/uL (0-0.2); Basophils % (auto) 0.3 %; Eosinophils % (auto) 1.2 %; Hematocrit (blood only) 40.1 % (40.1-51.0); Hemoglobin 12.5 g/dl (14.0-18.0); Immature Granulocytes # (auto) 0.02 K/uL (0.00-0.02); Immature Granulocytes % (auto) 0.2 %; Lymphocytes # (auto) 1.69 K/uL (1.2-3.4); Lymphocytes % (auto) 19.5 %; Mean Corpuscular Hemoglobin 29.1 pg (25.0-34.0); Mean Corpuscular Hgb Conc 31.2 g/dL (32.0-36.0); Mean Corpuscular Volume 93.5 fL (80.0-100.0); Mean Platelet Volume 10.1 fL (9.4-12.4); Monocytes # (auto) 0.68 K/uL (0.24-0.82); Monocytes % (auto) 7.9 %; Neutrophils # (auto) 6.13 K/uL (1.4-6.5); Neutrophils % (auto) 70.9 %; Platelet Count 251 K/uL (130-400); RDW Coefficient of Variation 17.2 % (11.5-14.5); RDW Standard Deviation 57.9 fL (36.4-46.3); Red Blood Count 4.29 M/uL (4.63-6.08); White Blood Count 8.65 K/ul (4.8-10.8)
[2022-07-01 08:52] LABS: INR 1.1 (0.9-1.1); Partial Thromboplastin Time 28.5 Seconds (21.0-31.0); Prothrombin Time 11.9 Seconds (9.0-12.0)
--- NOTE | 2022-07-01 08:56 | XRay Report ---
SINGLE VIEW CHEST CLINICAL HISTORY: Atypical chest pain. FINDINGS: 2 AP, portable, upright chest radiographs are compared to study dated 06/26/2022. The [facility] is degraded by portable technique, apical lordotic positioning, and large body habitus. The he art is enlarged. There is pulmonary vascular congestion. Atelectasis is noted at both lung bases. No airspace consolidation or large pleural effusion is identified. No pneumothorax is seen. The bony tho rax is grossly intact. IMPRESSION: Cardiomegaly with pulmonary vascular congestion ACT 112: Negative or not required by law. Electronically signed by: Dave Mckeon M.D. 07/01/2022 8:54 AM
[2022-07-01 09:05] LABS: Anion Gap 6 (3-11); BUN Creatinine Ratio 22.4 (10-20); Blood Urea Nitrogen 15 mg/dl (6-23); Calcium 8.9 mg/dl (8.5-10.1); Carbon Dioxide 26 mmol/L (21-32); Chloride 106 mmol/L (98-107); Creatinine Clr Calc Pharmacy 289.1 ml/min; Est GFR (African American) 136.4 ml/min; Est GFR (Non-African American) 117.7 ml/min; Glucose 97 mg/dl (70-99(Fasting)); Lipase 19 U/L (11-82); Sodium 138 mmol/L (136-145)
[2022-07-01] MEDS ORDERED: FUROSEMIDE 40 MG/4 ML VIAL IV ONE (09:18)
[2022-07-01] MEDS ORDERED: ALBUTEROL 0.083% NEBU SOLN 3 ML VIAL NEB STA (09:50)
--- NOTE | 2022-07-01 10:04 | History & Physical Report ---
Date of Service July 01, 2022 Assessment & Plan (1) Shortness of breath: Plan: Presents with worsening SOB since early this morning. Reports medication adherence to his Lasix 40 mg daily at home since discharge on 06/28. Patient has had some dietary indiscretion over the last several days since discharge. ER bed scale reported weight of 253.4 kg, this is up from 246.8 kg on discharge 06/28, suggesting fluid overload. Treating is likely CHF exacerbation, with other differentials including PE, ?COPD exacerbation (though no formal COPD diagnosis, has not had PFTs). On repeat evaluation patient is not tachycardic nor tachypneic, saturating well on room air. While PE cannot be definitively ruled out given cannot perform CT PE protocol, this is less likely than CHF as cause given increase in weight over the last several days. Patient had bilateral lower extremity ultrasound 3 days ago without evidence of DVT. Continue Lasix 40 mg IV twice daily with daily labs. Daily standing weights and strict intake/output. Last admission this was a challenge as patient refused to use the urinal. (2) Heart failure with mid-range ejection fraction: Plan: ER weight is 253kg, up from 246kg on discharge 06/28. Patient does continue to have dietary indiscretion, though improved over the last several days compared to diet on last admission (ex: 06/28 had buttered noodles for dinner, 06/29 had two ham sandwiches for lunch and pizza for dinner). LVEF 06/26/2022 of 40-50%, though technically difficult study and was done while patient was in A. fib with RVR. Low-dose Entresto twice daily initiated today. Continue metoprolol succinate 150 mg twice daily, and can titrate up as needed for max dose of 400 mg total daily. Heart rate in 90s today without symptoms of chest pain. Cardiology consulted and appreciate recommendations. CHF program consulted. Low-sodium diet. (3) Cardiomyopathy: Plan: LVEF as described above and echo on 06/26. While patient does have risk factors for CAD, it is likely that there was some tachycardia induced cardiomyopathy on that echo. Repeat echo in the future per discretion of outpatient cardiology. (4) Afib: Plan: History of A. fib, with last admission 1 week ago for A. fib with RVR and evidence of acute CHF. Patient is not in RVR at this time, with heart rate in the 90s. Continue metoprolol succinate 150 mg twice daily, and can titrate up to 200 mg twice daily if necessary. As patient is unlikely to be compliant with reinstituting warfarin, will continue Eliquis 5 mg twice daily. Drug trough concentration is pending from last admission. (5) Anticoagulant long-term use: Plan: Patient has been prescribed anticoagulants for a long time, however on last admit he reported that he had not been taking his warfarin for about a month. He was started on Eliquis after discussion with Dr. Muniz about options for anticoagulation for A. fib given his refusal to take warfarin or Xarelto. (6) Type II diabetes mellitus: Plan: A1c 6.8% on 06/27. Basal/bolus insulin while admitted with transition back to home regimen on discharge. (7) Tobacco abuse disorder: Plan: Offered nicotine patch, declined. Recommend smoking cessation. Continue Anoro Ellipta. Home albuterol nebs every 6 hours as needed for wheezing. Plan Full code Diabetic low-sodium diet Eliquis for DVT prophylaxis Telemetry status History of Present Illness Chief Complaint: shortness of breath Primary Care Provider: Jamarcus Cramer MD 42-year-old male past medical history significant for atrial fibrillation, tobacco use disorder, type 2 diabetes, sleep apnea, morbid obesity, heart failure with mid-range ejection fraction, morbid obesity presented for worsening shortness of breath this morning. He was discharged from [facility] on 06/28 for new onset CHF with exacerbation and AFib RVR, and on discharge his metoprolol was increased and he was started on Lasix 40mg PO daily for EF ~40-50%. He was doing well and reports that he was taking his medications as prescribed. Early this morning, he started to have shortness of breath that was worse with exertion and with lying flat. He reported to the ER was noted to be mildly tachycardic to the 90s, afebrile, saturating normally on room air. He reports that the shortness of breath comes in waves, lasts for a few seconds, and then goes away. Lab work revealed BNP of 466, dimer of 1090. Chest x-ray showed cardiomegaly with pulmonary vascular congestion. He was given 40 mg Lasix IV x1 and hospitalist service was consulted for admission. When asked to describe the last several days with regard to his oral intake, he reports that on 06/29 he ate buttered noodles for 1 meal, and a sandwich for another meal. On 06/30 he had a "few ham sandwiches" for lunch, and a few slices of pizza for dinner. He denies using the saltshaker. He denies any chest pain this admission, and no palpitations. Does not report feeling lightheaded or dizzy. No abdominal pain, nausea, vomiting. He did not use his nebulizer this morning to see if that would change his shortness of breath. Allergies Allergy/AdvReac Type Severity Reaction Status Date / Time No Known Allergies Allergy Verified 07/01/22 08:24 Home Medications Medication Instructions Recorded Confirmed Type metformin 500 mg tablet 500 mg PO BID #60 tabs 11/07/21 07/01/22 Rx albuterol sulfate 90 mcg/actuation 1 puff inhalation Q6H PRN 01/04/22 07/01/22 Rx aerosol inhaler (Ventolin HFA) shortness of breath or wheezing #18 grams ofloxacin 0.3 % ear drops 10 drp otic (ear) BID #5 mL 05/10/22 07/01/22 Rx blood sugar diagnostic (OneTouch #100 ea 06/27/22 06/29/22 Rx Verio test strips) blood-glucose meter (OneTouch #1 ea 06/27/22 06/29/22 Rx Verio Meter) lancets 33 gauge (One[employer] Delica #100 ea 06/27/22 06/29/22 Rx Lancets) apixaban 5 mg tablet (Eliquis) 5 mg PO BID #60 tabs 06/28/22 07/01/22 Rx metoprolol succinate 100 mg 100 mg PO BID #60 tabs 06/28/22 07/01/22 Rx tablet,extended release 24 hr metoprolol succinate 50 mg 50 mg PO BID #60 tabs 06/28/22 07/01/22 Rx tablet,extended release 24 hr umeclidinium 62.5 mcg-vilanterol 1 ea inhalation DAILY #60 ea 06/28/22 07/01/22 Rx 25 mcg/actuation powdr for inhalation (Anoro Ellipta) furosemide 40 mg tablet 40 mg PO DAILY 06/29/22 07/01/22 History albuterol sulfate 2.5 mg/3 mL 2.5 mg inhalation .Q4-6H PRN 07/01/22 07/01/22 History (0.083 %) solution for nebulization Shortness Of Breath Past Med/Surg History Medical History Anemia Atrial fibrillation BMI 60.0-69.9, adult BMI currently 66.4 Cardiomyopathy Dyslipidemia Heart failure with mid-range ejection fraction Low testosterone Metabolic syndrome Morbid obesity Nocturnal hypoxia Retrosternal chest pain Severe sleep apnea pt does not use CPAP as ordered Smokes 1 pack of cigarettes per day SOB (shortness of breath) Type II diabetes mellitus Surgical History History of adenoidectomy History of appendectomy History of wisdom tooth extraction Family History Father Hypertension Grandfather Myocardial infarction Unknown Obese Brother Valvular heart disease Other No family history of adverse response to anesthesia Social History Smoking Status: Current every day smoker Tobacco Type: Cigarettes Age Started Using Tobacco: 19; packs per day: 0.5; Cigarettes Per Day: 2-5; Second Hand Exposure: No; Do You Dip or Chew Tobacco: Yes; Tobacco Cessation Education Requested by Patient: No Hx Alcohol Use: No Hx Substance Use: No Preferred Language: [place] Communication Ability: Effective 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: No Beliefs That Will Affect Care: None marital status details: Current Living Situation: Spouse and Family Current Living Situation Comment: ex and youngest son current occupational status: employed current occupation: [employer] Other Information That Helps Us Care for You: No Feels Safe at Home: Yes Safety Concerns: Feels Safe At This Time Childhood Exposure to Second-Hand Smoke: No Physical Activity Frequency: Does not Exercise Seatbelt Use: never Assistive Devices: Glasses Review of Systems Review of Systems: All systems reviewed & are unremarkable except as noted in HPI & below Constitutional: + malaise; no fever and no chills Eyes: no blind spots and no diplopia Ear, Nose, Mouth, Throat: no nasal congestion and no epistaxis Respiratory: + dyspnea; no cough Cardiovascular: + edema (Reports bilateral lower extremity swelled up again though not as bad as last admission); no chest pain and no palpitations Gastrointestinal: no abdominal pain, no constipation and no diarrhea/loose stools Genitourinary: no dysuria or no hematuria Musculoskeletal: no back pain and no neck pain Integumentary: no rash and no skin ulcer Neurologic: no localized weakness and no loss of sensation Psychiatric: no behavioral changes and no confusion Endocrine: no fatigue, no polydipsia and no polyuria Hematologic / Lymphatic: no easy bleeding and no easy bruising Physical Exam Constitutional: well developed and well nourished; no acute distress Eyes: PERRL, conjunctivae normal, anicteric sclerae ENMT: external ear and nose normal, oropharynx normal Neck: trachea midline, no thyromegaly Respiratory: normal respiratory effort, lungs clear to auscultation Intermittent end expiratory wheeze Cardiovascular: Heart rate irregularly irregular, no murmurs. 1+ pitting edema to bilateral lower extremities Gastrointestinal (Abdomen): normal bowel sounds, soft, nontender, no hepatosplenomegaly Musculoskeletal: no cyanosis or clubbing, extremities motor strength 5/5 Skin: no rashes, warm and dry Neurologic: AAOx3, normal speech. Bilateral UE, LE, and face without sensory or motor deficits. Psychiatric: A+Ox3, euthymic affect Results & Data Results & Data ([facility]) Vital Signs (Past 12 Hours) Vital Signs Temp Pulse Resp BP Pulse Ox O2 Del Method 07/01/22 09:04 93 H 26 H 95 Room Air 07/01/22 09:04 120/87 Room Air 07/01/22 09:00 94 H 17 Room Air 07/01/22 08:50 92 H 15 Room Air 07/01/22 08:40 97 H 15 Room Air 07/01/22 08:30 91 H 19 Room Air 07/01/22 08:20 90 25 H Room Air 07/01/22 08:10 91 H 20 Room Air 07/01/22 08:00 95 H 20 Room Air 07/01/22 07:53 96 H 21 Room Air 07/01/22 07:50 Room Air 07/01/22 07:50 37.2 C 98 H 18 132/97 96 Room Air 07/01/22 07:50 Room Air Code Status & VTE Plan VTE Prophylaxis Plan VTE Prophylaxis will be ordered: Yes PG Care Time/CCT Total # of Minutes Spent Total Time Spent with Patient: Total time spent is greater than 50% in coordination of care (as documented) at patient's floor/unit and/or counseling patient: Coding Level of Care Code 65150 Initial Inpt Care Lvl 3 Diagnoses Shortness of breath R06.02 Heart failure with mid-range ejection fraction I50.22 Cardiomyopathy I42.9 Afib I48.91 Anticoagulant long-term use Z79.01 Type II diabetes mellitus E11.9 Tobacco abuse disorder Z72.0
[2022-07-01 10:39] LABS: D Dimer 1090 ug/L FEU (0-500)
[2022-07-01] MEDS ORDERED: GLUCOSE 10 TAB/TUBE PO PRN (12:01)
[2022-07-01] MEDS ORDERED: GLUCOSE 40% GEL 15 GM TUBE PO PRN (12:01)
[2022-07-01] MEDS ORDERED: HEPARIN SODIUM/DEXTROSE 25,000 UNITS/500 ML BAG IV SCH (12:01)
[2022-07-01] MEDS ORDERED: ACETAMINOPHEN 325 MG TAB PO PRN (12:01)
[2022-07-01] MEDS ORDERED: DEXTROSE 50% 50 ML SYRINGE IV PRN (12:01)
[2022-07-01] MEDS ORDERED: CARBOHYDRATES FOR HYPOGLYCEMIA PO PRN (12:01)
[2022-07-01] MEDS ORDERED: GLUCAGON FOR INJ 1 MG VIAL SQ PRN (12:01)
[2022-07-01] MEDS ORDERED: ALBUTEROL 0.083% NEBU SOLN 3 ML VIAL INH PRN (12:01)
[2022-07-01] MEDS ORDERED: Heparin IV Adult Wt-Based Standard WITH Bolus Protocol IV STA (12:13)
[2022-07-01] MEDS ORDERED: HEPARIN SOD (PORCINE) 1000 UNIT/ML IV ONE (12:45)
[2022-07-01] MEDS: INSULIN ASPART PER UNIT SC SCH ×3 (13:13→20:53)
--- NOTE | 2022-07-01 15:20 | Cardiology Consultation ---
Date of Consultation July 01, 2022 Assessment & Plan (1) Heart failure with mid-range ejection fraction: (2) Cardiomyopathy: (3) Persistent atrial fibrillation: (4) Anticoagulant long-term use: (5) Tobacco abuse disorder: Plan ASSESSMENT/PLAN: 1. Acute on chronic heart failure with mid range EF: He appears hypervolemic. Dietary discretion likely playing a role. Discussed the importance of a low- sodium diet. Less than 2000 mg sodium per day. Agree with intravenous diuretics. Would try to maintain that negative fluid balance of 1-2 L in the next 24 hours. Strict I&Os recommended. Daily weights. Recommend heart failure program and he is agreeable. Will start low-dose Entresto. 2. Cardiomyopathy: Technically difficult echo. On personal review, LV systolic function could be even more significantly reduced but also done in the setting of AFib with RVR. Start Entresto. Continue metoprolol succinate. Has risk factors for CAD but would suspect tachycardia induced cardiomyopathy. Weight precludes cardiac catheterization at this facility. Recommend optimizing medical therapy and heart rate and monitor as an outpatient. 3. Atrial fibrillation: Follows with Dr. Hale. Had plan for cardioversion once the visually anticoagulated. Has been noncompliant as an outpatient with medical therapy. Now on Eliquis as an outpatient. Was noncompliant with warfarin. Atrial fibrillation could be playing a role in his heart failure. Continue rate control strategy for now. Heart rate reasonably controlled currently. Could further titrate metoprolol succinate to a total of 400 mg daily necessary. Could also use digoxin if needed. 4. Tobacco abuse: Congratulated on cutting back. Quit smoking altogether. 5. Disposition: Cardiology will continue to follow. Heart failure program referral. Patient care communicated with Dr. Crawford, primary hospitalist. Today's visit was 45 minutes in duration, including [id number] time, counseling patient, coordinating care, echo image review, study reviews, chart review, and documentation. Thank you for allowing me to participate in the care of your patient. Please call for any other questions or concerns. Sincerely, Tiburcio Fink M.D. History of Present Illness Reason for Consultation: "Acute CHF exacerbation" Requesting Physician: Inna Crawford DO Attending Physician: Inna Crawford DO History of Present Illness Mr. Monsalve is a pleasant 42-year-old gentleman with a history significant for atrial fibrillation, CHF, type 2 diabetes, morbid obesity, and sleep apnea (did not tolerate CPAP). His primary joss house keeper is Dr. Hale. He was hospitalized on 06/26/2022 and discharged on 06/28/2022 while being treated for AFib with RVR and newly diagnosed CHF with mid range EF. He had not been taking his beta-elizabeth or anticoagulation therapy leading up to that hospital stay. While hospitalized, he received intravenous diuretic therapy and titration of beta-elizabeth and was discharged on Eliquis. He has a scale at home but did not weigh himself. He admits that he had a half a lb of ham the day after discharge and noted that yesterday he became short of breath, while watching TV last night. He had edema last hospital stay which improved but had worsening edema since being home over the past couple of days. He denies chest pain, palpitations, syncope, near-syncope, or bleeding such as melena, hematochezia, or hematuria. While here, he has received 40 mg of IV Lasix x1 admits that he has urinated significantly. He feels much better but not yet back to baseline. He has had the following studies/procedures: 1. Echo 06/26/2022: Global hypokinesis of the LV with EF likely 40-50% per report. Moderately dilated RV with moderately reduced systolic function. No significant valvular abnormalities. Technically limited study. Review of systems: As above. Review systems otherwise negative/unremarkable. Family history: Maternal grandfather had CAD. Social history: He had smokes 1+ pack per day but currently down to 1 cigarette per day while trying to quit. Rare alcohol. Lives at home with his ex , Ernestina and 2 sons. 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 He was unaccompanied today. Allergies Allergy/AdvReac Type Severity Reaction Status Date / Time No Known Allergies Allergy Verified 07/01/22 08:24 Home Medications Medication Instructions Recorded Confirmed Type metformin 500 mg tablet 500 mg PO BID #60 tabs 11/07/21 07/01/22 Rx albuterol sulfate 90 mcg/actuation 1 puff inhalation Q6H PRN 01/04/22 07/01/22 Rx aerosol inhaler (Ventolin HFA) shortness of breath or wheezing #18 grams ofloxacin 0.3 % ear drops 10 drp otic (ear) BID #5 mL 05/10/22 07/01/22 Rx blood sugar diagnostic (OneTouch #100 ea 06/27/22 06/29/22 Rx Verio test strips) blood-glucose meter (OneTouch #1 ea 06/27/22 06/29/22 Rx Verio Meter) lancets 33 gauge (OneTouch Delica #100 ea 06/27/22 06/29/22 Rx Lancets) apixaban 5 mg tablet (Eliquis) 5 mg PO BID #60 tabs 06/28/22 07/01/22 Rx metoprolol succinate 100 mg 100 mg PO BID #60 tabs 06/28/22 07/01/22 Rx tablet,extended release 24 hr metoprolol succinate 50 mg 50 mg PO BID #60 tabs 06/28/22 07/01/22 Rx tablet,extended release 24 hr umeclidinium 62.5 mcg-vilanterol 1 ea inhalation DAILY #60 ea 06/28/22 07/01/22 Rx 25 mcg/actuation powdr for inhalation (Anoro Ellipta) furosemide 40 mg tablet 40 mg PO DAILY 06/29/22 07/01/22 History albuterol sulfate 2.5 mg/3 mL 2.5 mg inhalation .Q4-6H PRN 07/01/22 07/01/22 History (0.083 %) solution for nebulization Shortness Of Breath Patient History Medical History (Updated 07/01/22 @ 15:26 by Rigo Ernst) Anemia Atrial fibrillation BMI 60.0-69.9, adult BMI currently 66.4 Cardiomyopathy Dyslipidemia Heart failure with mid-range ejection fraction Low testosterone Metabolic syndrome Morbid obesity Nocturnal hypoxia Retrosternal chest pain Severe sleep apnea pt does not use CPAP as ordered Smokes 1 pack of cigarettes per day SOB (shortness of breath) Type II diabetes mellitus Surgical History History of adenoidectomy History of appendectomy History of wisdom tooth extraction Family History Father Hypertension Grandfather Myocardial infarction Unknown Obese Brother Valvular heart disease Other No family history of adverse response to anesthesia Social History Smoking Status: Current every day smoker Tobacco Type: Cigarettes Age Started Using Tobacco: 19; packs per day: 0.5; Cigarettes Per Day: 2-5; Second Hand Exposure: No; Do You Dip or Chew Tobacco: Yes; Tobacco Cessation Education Requested by Patient: No Hx Alcohol Use: No Hx Substance Use: No Preferred Language: Czech Communication Ability: Effective Field Merchandiser Required: No Beliefs That Will Affect Care: None marital status details: Current Living Situation: Spouse and Family Current Living Situation Comment: ex and youngest son current occupational status: employed current occupation: [employer] Other Information That Helps Us Care for You: No Feels Safe at Home: Yes Safety Concerns: Feels Safe At This Time Childhood Exposure to Second-Hand Smoke: No Physical Activity Frequency: Does not Exercise Seatbelt Use: never Assistive Devices: Glasses Physical Exam Physical Exam: Gen.: No acute distress. Alert and oriented. HEENT: Anicteric sclera. Neck: Thick neck. No bruits. Normal carotid upstrokes bilaterally. Cardiac: PMI was not palpable. No ventricular heave. Irregularly irregular. Distant S1-S2. No murmurs, rubs, or gallops. Pulmonary: Clear to auscultation bilaterally without wheezes, rales, or rhonchi. Abdomen: Obese. Soft, nontender, nondistended, with normoactive bowel sounds. No bruits noted. Extremities: 2+ radial pulses bilaterally. 2+ posterior tibialis pulses bilate rally. 1+ bilateral lower extremity edema. No cyanosis. Psychiatric: Affect appears appropriate. Results & Data ([facility]) Vital Signs (Past 12 Hours) Vital Signs Temp Pulse Pulse Resp BP BP Pulse Ox 07/01/22 12:01 36.7 C 89 16 129/76 95 07/01/22 11:35 36.8 C 88 26 H 115/84 96 07/01/22 11:15 95 H 18 131/88 98 07/01/22 10:10 89 18 07/01/22 10:00 95 H 28 H 07/01/22 09:50 100 H 15 07/01/22 09:40 96 H 17 07/01/22 09:30 90 28 H 07/01/22 09:20 94 H 20 07/01/22 09:10 96 H 25 H 97 07/01/22 09:04 93 H 26 H 95 07/01/22 09:04 120/87 07/01/22 09:00 94 H 17 07/01/22 08:50 92 H 15 07/01/22 08:40 97 H 15 07/01/22 08:30 91 H 19 07/01/22 08:20 90 25 H 07/01/22 08:10 91 H 20 07/01/22 08:00 95 H 20 07/01/22 07:53 96 H 21 07/01/22 07:50 07/01/22 07:50 37.2 C 98 H 18 132/97 96 07/01/22 07:50 O2 Del Method 07/01/22 12:01 Room Air 07/01/22 11:35 Room Air 07/01/22 11:15 Room Air 07/01/22 10:10 Room Air 07/01/22 10:00 Room Air 07/01/22 09:50 Room Air 07/01/22 09:40 Room Air 07/01/22 09:30 Room Air 07/01/22 09:20 Room Air 07/01/22 09:10 Room Air 07/01/22 09:04 Room Air 07/01/22 09:04 Room Air 07/01/22 09:00 Room Air 07/01/22 08:50 Room Air 07/01/22 08:40 Room Air 07/01/22 08:30 Room Air 07/01/22 08:20 Room Air 07/01/22 08:10 Room Air 07/01/22 08:00 Room Air 07/01/22 07:53 Room Air 07/01/22 07:50 Room Air 07/01/22 07:50 Room Air 07/01/22 07:50 Room Air Intake & Output 06/29/22 06/30/22 07/01/22 07/02/22 06:59 06:59 06:59 06:59 Weight 550 lb 7.908 oz Laboratory Results Laboratory Results - last 24 hr 07/01/22 07/01/22 07/01/22 08:23 08:23 08:23 WBC 8.65 RBC 4.29 L Hgb 12.5 L Hct 40.1 MCV 93.5 MCH 29.1 MCHC 31.2 L RDW Std Deviation 57.9 H RDW Coeff of Maberly 17.2 H Plt Count 251 MPV 10.1 Immature Gran % (Auto) 0.2 Neut % (Auto) 70.9 Lymph % (Auto) 19.5 [place] % (Auto) 7.9 Eos % (Auto) 1.2 Baso % (Auto) 0.3 Neut # (Auto) 6.13 Lymph # (Auto) 1.69 [place] # (Auto) 0.68 Eos # (Auto) 0.10 Baso # (Auto) 0.03 Immature Gran # (Auto) 0.02 PT 11.9 INR 1.1 APTT 28.5 PTT Ratio 1.0 D-Dimer Sodium 138 Potassium TNP Chloride 106 Carbon Dioxide 26 Anion Gap 6 BUN 15 Creatinine 0.67 Est Cr Clr Drug Dosing 289.1 Est GFR ( Amer) 136.4 Est GFR (Non-Af Amer) 117.7 BUN/Creatinine Ratio 22.4 H Glucose 97 POC Glucose Calcium 8.9 Troponin I High Sens 6.0 D B-Natriuretic Peptide Lipase 19 SARS-CoV-2, RNA, NAAT 07/01/22 07/01/22 07/01/22 08:23 09:17 09:24 WBC RBC Hgb Hct MCV MCH MCHC RDW Std Deviation RDW Coeff of Amberly Plt Count MPV Immature Gran % (Auto) Neut % (Auto) Lymph % (Auto) [place] % (Auto) Eos % (Auto) Baso % (Auto) Neut # (Auto) Lymph # (Auto) [place] # (Auto) Eos # (Auto) Baso # (Auto) Immature Gran # (Auto) PT INR APTT PTT Ratio D-Dimer 1090 H* Sodium Potassium 4.3 Chloride Carbon Dioxide Anion Gap BUN Creatinine Est Cr Clr Drug Dosing Est GFR ( Amer) Est GFR (Non-Af Amer) BUN/Creatinine Ratio Glucose POC Glucose Calcium Troponin I High Sens B-Natriuretic Peptide Lipase SARS-CoV-2, RNA, NAAT NEGATIVE 07/01/22 07/01/22 09:29 12:21 WBC RBC Hgb Hct MCV MCH MCHC RDW Std Deviation RDW Coeff of Amberly Plt Count MPV Immature Gran % (Auto) Neut % (Auto) Lymph % (Auto) [place] % (Auto) Eos % (Auto) Baso % (Auto) Neut # (Auto) Lymph # (Auto) [place] # (Auto) Eos # (Auto) Baso # (Auto) Immature Gran # (Auto) PT INR APTT PTT Ratio D-Dimer Sodium Potassium Chloride Carbon Dioxide Anion Gap BUN Creatinine Est Cr Clr Drug Dosing Est GFR ( Amer) Est GFR (Non-Af Amer) BUN/Creatinine Ratio Glucose POC Glucose 106 H Calcium Troponin I High Sens B-Natriuretic Peptide 466 H Lipase SARS-CoV-2, RNA, NAAT Diagnostic Findings Echo report reviewed as noted above in HPI. Telemetry personally reviewed: Atrial fibrillation with heart rates in the 90s. ECG personally reviewed 07/01/2022 at 7:53 a.m.: AFib 99 beats per minute. Incomplete RBBB. Nonspecific T-wave abnormality. Chest x-ray 07/01/2022: Pulmonary vascular congestion. Medications Administered Current Inpatient Medications Acetaminophen (Acetaminophen 325 Mg Tab) 650 mg PO Q4H PRN PRN Reason: Pain or Fever Stop: 07/31/22 12:00 Albuterol (Albuterol 0.083% Nebu Soln 3 Ml Vial) 2.5 mg INH Q4R PRN; Protocol PRN Reason: Shortness Of Breath Stop: 07/31/22 12:00 Ciprofloxacin (Ciprofloxacin Hcl 0.3% Op Soln 2.5 Ml Btl) 10 drops OT BID TOI Stop: 07/11/22 20:59 Dextrose (Dextrose 50% 50 Ml Syringe) 25 - 50 ml IV UD PRN; Protocol PRN Reason: Hypoglycemia Protocol Stop: 07/31/22 12:00 Furosemide (Furosemide 40 Mg/4 Ml Vial) 40 mg IV BID TOI Stop: 07/31/22 20:59 Glucagon (Glucagon For Inj 1 Mg Vial) 1 mg SQ UD PRN; Protocol PRN Reason: Hypoglycemia Protocol Stop: 07/31/22 12:00 Glucose (Glucose 40% Gel 15 Gm Tube) 15 - 30 gm PO UD PRN; Protocol PRN Reason: Hypoglycemia Protocol Stop: 07/31/22 12:00 Glucose (Glucose 10 Tab/Tube) 4 - 8 tab PO UD PRN; Protocol PRN Reason: Hypoglycemia Treatment Stop: 07/31/22 12:00 Heparin Sodium/Dextrose (Heparin Sodium/Dextrose) 25,000 units in 500 mls @ 50 mls/hr IV .Q10H TOI; Protocol Stop: 07/31/22 12:00 Last Admin: 07/01/22 13:17 Dose: 2,500 units/hr, 50 mls/hr Insulin Aspart (Insulin Aspart Per Unit) 0 units SC ACHS TOI Stop: 07/31/22 12:00 Last Admin: 07/01/22 13:13 Dose: Not Given Insulin Glargine (Lantus Per Unit Charge) 5 units SQ BID TOI Stop: 07/31/22 20:59 Metoprolol Succinate (Metoprolol Succ 50mg Ext Rel Tab) 50 mg PO BID TOI Stop: 07/31/22 20:59 Metoprolol Succinate (Metoprolol Succ 50mg Ext Rel Tab) 100 mg PO BID TOI Stop: 07/31/22 20:59 Miscellaneous (Carbohydrates For Hypoglycemia ) 15 - 30 gm PO UD PRN PRN Reason: Hypoglycemia Protocol Stop: 07/31/22 12:00 Umeclidinium/Vilanterol (Umeclidinium/Vilanterol 62.5/25mcg 7 Puffs/Inhaler) 1 puffs INH DAILY TOI Stop: 08/01/22 08:59 PG Care Time/CCT Total # of Minutes Spent Total Time Spent with Patient: Total time spent is greater than 50% in coordination of care (as documented) at patient's floor/unit and/or counseling patient: Coding Level of Care Code 60229 Office/Outpt Visit, Est Diagnoses Heart failure with mid-range ejection fraction I50.22 Cardiomyopathy I42.9 Persistent atrial fibrillation I48.19 Anticoagulant long-term use Z79.01 Tobacco abuse disorder Z72.0 Time Spent (min) 45
--- NOTE | 2022-07-01 15:26 | Emergency Department Note ---
History of Present Illness General Chief Complaint: Shortness of Breath/Dyspnea Time Seen by Provider: 07/01/22 08:04 History of Present Illness Provider Complaint: shortness of breath Onset (ago): day(s) (1) Severity: similar to previous episodes Consistency/Duration: + progressively worsening Relieved By: + upright position Exacerbated By: + lying flat, + exertion and + coughing Known history of: congestive heart failure Associated symptoms: + cough, + sputum production and + orthopnea; no hemoptysis or no nausea/vomiting Treatment prior to arrival: none Home Medications Medication Instructions Recorded Confirmed Type metformin 500 mg tablet 500 mg PO BID #60 tabs 11/07/21 07/01/22 Rx albuterol sulfate 90 mcg/actuation 1 puff inhalation Q6H PRN 01/04/22 07/01/22 Rx aerosol inhaler (Ventolin HFA) shortness of breath or wheezing #18 grams ofloxacin 0.3 % ear drops 10 drp otic (ear) BID #5 mL 05/10/22 07/01/22 Rx blood sugar diagnostic (OneTouch #100 ea 06/27/22 06/29/22 Rx Verio test strips) blood-glucose meter (OneTouch #1 ea 06/27/22 06/29/22 Rx Verio Meter) lancets 33 gauge (OneTouch Delica #100 ea 06/27/22 06/29/22 Rx Lancets) apixaban 5 mg tablet (Eliquis) 5 mg PO BID #60 tabs 06/28/22 07/01/22 Rx metoprolol succinate 100 mg 100 mg PO BID #60 tabs 06/28/22 07/01/22 Rx tablet,extended release 24 hr metoprolol succinate 50 mg 50 mg PO BID #60 tabs 06/28/22 07/01/22 Rx tablet,extended release 24 hr umeclidinium 62.5 mcg-vilanterol 1 ea inhalation DAILY #60 ea 06/28/22 07/01/22 Rx 25 mcg/actuation powdr for inhalation (Anoro Ellipta) furosemide 40 mg tablet 40 mg PO DAILY 06/29/22 07/01/22 History albuterol sulfate 2.5 mg/3 mL 2.5 mg inhalation .Q4-6H PRN 07/01/22 07/01/22 History (0.083 %) solution for nebulization Shortness Of Breath Allergies Allergy/AdvReac Type Severity Reaction Status Date / Time No Known Allergies Allergy Verified 07/01/22 08:24 Past Med/Surg History Medical History (Updated 07/01/22 @ 15:26 by Rigo Ernst) Anemia Atrial fibrillation BMI 60.0-69.9, adult BMI currently 66.4 Cardiomyopathy Dyslipidemia Heart failure with mid-range ejection fraction Low testosterone Metabolic syndrome Morbid obesity Nocturnal hypoxia Retrosternal chest pain Severe sleep apnea pt does not use CPAP as ordered Smokes 1 pack of cigarettes per day SOB (shortness of breath) Type II diabetes mellitus Surgical History History of adenoidectomy History of appendectomy History of wisdom tooth extraction Family History Father Hypertension Grandfather Myocardial infarction Unknown Obese Brother Valvular heart disease Other No family history of adverse response to anesthesia Social History Smoking Status: Current every day smoker Tobacco Type: Cigarettes Age Started Using Tobacco: 19; packs per day: 0.5; Cigarettes Per Day: 2-5; Second Hand Exposure: No; Do You Dip or Chew Tobacco: Yes; Tobacco Cessation Education Requested by Patient: No Hx Alcohol Use: No Hx Substance Use: No Preferred Language: Greek Communication Ability: Effective 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 Beliefs That Will Affect Care: None marital status details: Current Living Situation: Spouse and Family Current Living Situation Comment: ex and youngest son current occupational status: employed current occupation: [employer] Other Information That Helps Us Care for You: No Feels Safe at Home: Yes Safety Concerns: Feels Safe At This Time Childhood Exposure to Second-Hand Smoke: No Physical Activity Frequency: Does not Exercise Seatbelt Use: never Assistive Devices: Glasses Review of Systems A total of 10 systems reviewed and were otherwise negative Physical Exam Vital Signs: Vital Signs - 24 hr 07/01/22 07:50 07/01/22 07:50 07/01/22 07:50 Temperature 37.2 C Temperature Source Oral Pulse Rate 98 H Pulse Rate from Sp O2 Sensor Respiratory Rate 18 Respiratory Effort / Characteristics Non-Labored Sponta neous Non-Labored Sponta neous Respiratory Depth Normal Normal Respiratory Patter n Regular Regular Blood Pressure 132/97 Blood Pressure Angelica n 108 Blood Pressure Pos ition Sitting Pulse Oximetry 96 Oxygen Delivery Me thod Room Air Room Air Room Air Sepsis Recent Feve r Within 48 Hours No Sepsis New/Unexpla ined Change in Men miki Status No Sepsis Action Take n by Nursing No Action Required 07/01/22 07:53 07/01/22 08:00 07/01/22 08:10 Temperature Temperature Source Pulse Rate 96 H 95 H 91 H Pulse Rate from Sp O2 Sensor Respiratory Rate 21 20 20 Respiratory Effort / Characteristics Respiratory Depth Respiratory Patter n Blood Pressure Blood Pressure Angelica n Blood Pressure Pos ition Pulse Oximetry Oxygen Delivery Me thod Room Air Room Air Room Air Sepsis Recent Feve r Within 48 Hours Sepsis New/Unexpla ined Change in Men miki Status Sepsis Action Take n by Nursing 07/01/22 08:20 07/01/22 08:30 07/01/22 08:40 Temperature Temperature Source Pulse Rate 90 91 H 97 H Pulse Rate from Sp O2 Sensor Respiratory Rate 25 H 19 15 Respiratory Effort / Characteristics Respiratory Depth Respiratory Patter n Blood Pressure Blood Pressure Angelica n Blood Pressure Pos ition Pulse Oximetry Oxygen Delivery Me thod Room Air Room Air Room Air Sepsis Recent Feve r Within 48 Hours Sepsis New/Unexpla ined Change in Men miki Status Sepsis Action Take n by Nursing 07/01/22 08:50 07/01/22 09:00 07/01/22 09:04 Temperature Temperature Source Pulse Rate 92 H 94 H Pulse Rate from Sp O2 Sensor Respiratory Rate 15 17 Respiratory Effort / Characteristics Respiratory Depth Respiratory Patter n Blood Pressure 120/87 Blood Pressure Angelica n 98 Blood Pressure Pos ition Pulse Oximetry Oxygen Delivery Me thod Room Air Room Air Room Air Sepsis Recent Feve r Within 48 Hours Sepsis New/Unexpla ined Change in Men miki Status Sepsis Action Take n by Nursing 07/01/22 09:04 07/01/22 09:10 07/01/22 09:20 Temperature Temperature Source Pulse Rate 93 H 96 H 94 H Pulse Rate from Sp O2 Sensor 94 H Respiratory Rate 26 H 25 H 20 Respiratory Effort / Characteristics Respiratory Depth Respiratory Patter n Blood Pressure Blood Pressure Angelica n Blood Pressure Pos ition Pulse Oximetry 95 97 Oxygen Delivery Me thod Room Air Room Air Room Air Sepsis Recent Feve r Within 48 Hours Sepsis New/Unexpla ined Change in Men miki Status Sepsis Action Take n by Nursing 07/01/22 09:30 07/01/22 09:40 Temperature Temperature Source Pulse Rate 90 96 H Pulse Rate from Sp O2 Sensor Respiratory Rate 28 H 17 Respiratory Effort / Characteristics Respiratory Depth Respiratory Patter n Blood Pressure Blood Pressure Angelica n Blood Pressure Pos ition Pulse Oximetry Oxygen Delivery Me thod Room Air Room Air Sepsis Recent Feve r Within 48 Hours Sepsis New/Unexpla ined Change in Men miki Status Sepsis Action Take n by Nursing Physical Exam: Physical Exam HENT: Exam performed. - Head: Normocephalic and atraumatic. - Right Ear: External ear normal. No mastoid tenderness. - Left Ear: External ear normal. No mastoid tenderness. - Mouth/Throat: The oropharynx is clear and moist. No trismus in the jaw. No dental abscesses or uvula swelling. No oropharyngeal exudate or tonsillar abscesses. EYES: Conjunctivae and EOM are normal. Pupils are equal, round, and reactive to light. Right eye exhibits no discharge. Left eye exhibits no discharge. No scleral icterus. NECK: Normal range of motion. Neck supple. No JVD present. No spinous process tenderness present. No carotid bruit present. No rigidity. No tracheal deviation and normal range of motion present. No Brudzinski's sign and no Kernig's sign n oted. CV: Normal rate, irregular rhythm, normal heart sounds and intact distal pulses. Palpable radial pulses bue. PULM/CHEST: Rales bilaterally. ABD: The abdomen is soft and morbidly obese. MUSC/SKEL: 3+ pitting edema of the bilateral lower extremities. NEURO: Motor and sensation grossly intact. Course Course 0804: The patient was evaluated in room C10. A complete history and physical exam was performed Cardiac monitoring: An order was placed for continuous cardiac monitoring. The monitor shows a rate of 90 with atrial fibrilation rhythm 0915: Vital signs stable. EMR reviewed. Patient has a 6.5 kg increase in his weight from 3 days ago. Patient's checks x-ray shows pulmonary vascular congestion. BNP 466 troponin negative. Patient will be diuresed with Lasix and admitted to the [facility] [place] [facility] team discussed case with Dr. Lugo who does know the patient and she recently admitted him and had her on her service. Administered Medications Heparin Sodium/Dextrose (Heparin Sodium/Dextrose) 25,000 units in 500 mls @ 50 mls/hr IV .Q10H [facility]; Protocol Stop: 07/31/22 12:00 Last Admin: 07/01/22 13:17 Dose: 2,500 units/hr, 50 mls/hr Documented By: MARK Co-signed By: ISIAH Insulin Aspart (Insulin Aspart Per Unit) 0 units SC ACHS TOI Stop: 07/31/22 12:00 Last Admin: 07/01/22 13:13 Dose: Not Given Documented By: MARK Co-signed By: GAUDENCIO Discontinued Medications Albuterol (Albuterol 0.083% Nebu Soln 3 Ml Vial) 2.5 mg NEB NOW STA; Protocol Stop: 07/01/22 09:51 Last Admin: 07/01/22 10:07 Dose: 2.5 mg Documented By: JEAN Aspirin (Aspirin Chew 324 Mg) 324 mg PO NOW STA Stop: 07/01/22 08:05 Last Admin: 07/01/22 08:32 Dose: 324 mg Documented By: JEAN Furosemide (Furosemide 40 Mg/4 Ml Vial) 40 mg IV ONE ONE Stop: 07/01/22 09:19 Last Admin: 07/01/22 10:07 Dose: 40 mg Documented By: JEAN Heparin Sodium (Porcine) (Heparin Sod (Porcine) 1000 Unit/Ml) 10,000 units IV NOW ONE Stop: 07/01/22 12:46 Last Admin: 07/01/22 13:17 Dose: 10,000 units Documented By: MARK Co-signed By: ISIAH Medical Decision Making Laboratory Data Result diagrams: 07/01/22 08:23 07/01/22 09:24 Lab Results 07/01/22 07/01/22 07/01/22 Range/Units 08:23 08:23 08:23 WBC 8.65 (4.8-10.8) K/ul RBC 4.29 L (4.63-6.08) M/uL Hgb 12.5 L (14.0-18.0) g/dl Hct 40.1 (40.1-51.0) % MCV 93.5 (80.0-100.0) fL MCH 29.1 (25.0-34.0) pg MCHC 31.2 L (32.0-36.0) g/dL RDW Std Deviation 57.9 H (36.4-46.3) fL RDW Coeff of Amberly 17.2 H (11.5-14.5) % Plt Count 251 (130-400) K/uL MPV 10.1 (9.4-12.4) fL Immature Gran % (Auto) 0.2 % Neut % (Auto) 70.9 % Lymph % (Auto) 19.5 % [place] % (Auto) 7.9 % Eos % (Auto) 1.2 % Baso % (Auto) 0.3 % Neut # (Auto) 6.13 (1.4-6.5) K/uL Lymph # (Auto) 1.69 (1.2-3.4) K/uL [place] # (Auto) 0.68 (0.24-0.82) K/uL Eos # (Auto) 0.10 (0-0.50) K/uL Baso # (Auto) 0.03 (0-0.2) K/uL Immature Gran # (Auto) 0.02 (0.00-0.02) K/uL PT 11.9 (9.0-12.0) Seconds INR 1.1 (0.9-1.1) APTT 28.5 (21.0-31.0) Seconds PTT Ratio 1.0 D-Dimer (0-500) ug/L FEU Sodium 138 (136-145) mmol/L Potassium TNP Chloride 106 (98-107) mmol/L Carbon Dioxide 26 (21-32) mmol/L Anion Gap 6 (3-11) BUN 15 (6-23) mg/dl Creatinine 0.67 (0.6-1.4) mg/dl Est Cr Clr Drug Dosing 289.1 ml/min Est GFR ( Amer) 136.4 ml/min Est GFR (Non-Af Amer) 117.7 ml/min BUN/Creatinine Ratio 22.4 H (10-20) Glucose 97 (70-99(Fasting)) mg/dl Calcium 8.9 (8.5-10.1) mg/dl Troponin I High Sens 6.0 D (0-20) pg/ml B-Natriuretic Peptide (0-100) pg/ml Lipase 19 (11-82) U/L SARS-CoV-2, RNA, NAAT (NEGATIVE) 07/01/22 07/01/22 07/01/22 Range/Units 08:23 09:17 09:24 WBC (4.8-10.8) K/ul RBC (4.63-6.08) M/uL Hgb (14.0-18.0) g/dl Hct (40.1-51.0) % MCV (80.0-100.0) fL MCH (25.0-34.0) pg MCHC (32.0-36.0) g/dL RDW Std Deviation (36.4-46.3) fL RDW Coeff of Amberly (11.5-14.5) % Plt Count (130-400) K/uL MPV (9.4-12.4) fL Immature Gran % (Auto) % Neut % (Auto) % Lymph % (Auto) % [place] % (Auto) % Eos % (Auto) % Baso % (Auto) % Neut # (Auto) (1.4-6.5) K/uL Lymph # (Auto) (1.2-3.4) K/uL [place] # (Auto) (0.24-0.82) K/uL Eos # (Auto) (0-0.50) K/uL Baso # (Auto) (0-0.2) K/uL Immature Gran # (Auto) (0.00-0.02) K/uL PT (9.0-12.0) Seconds INR (0.9-1.1) APTT (21.0-31.0) Seconds PTT Ratio D-Dimer 1090 H* (0-500) ug/L FEU Sodium (136-145) mmol/L Potassium 4.3 Chloride (98-107) mmol/L Carbon Dioxide (21-32) mmol/L Anion Gap (3-11) BUN (6-23) mg/dl Creatinine (0.6-1.4) mg/dl Est Cr Clr Drug Dosing ml/min Est GFR ( Amer) ml/min Est GFR (Non-Af Amer) ml/min BUN/Creatinine Ratio (10-20) Glucose (70-99(Fasting)) mg/dl Calcium (8.5-10.1) mg/dl Troponin I High Sens (0-20) pg/ml B-Natriuretic Peptide (0-100) pg/ml Lipase (11-82) U/L SARS-CoV-2, RNA, NAAT NEGATIVE (NEGATIVE) 07/01/22 Range/Units 09:29 WBC (4.8-10.8) K/ul RBC (4.63-6.08) M/uL Hgb (14.0-18.0) g/dl Hct (40.1-51.0) % MCV (80.0-100.0) fL MCH (25.0-34.0) pg MCHC (32.0-36.0) g/dL RDW Std Deviation (36.4-46.3) fL RDW Coeff of Amberly (11.5-14.5) % Plt Count (130-400) K/uL MPV (9.4-12.4) fL Immature Gran % (Auto) % Neut % (Auto) % Lymph % (Auto) % [place] % (Auto) % Eos % (Auto) % Baso % (Auto) % Neut # (Auto) (1.4-6.5) K/uL Lymph # (Auto) (1.2-3.4) K/uL [place] # (Auto) (0.24-0.82) K/uL Eos # (Auto) (0-0.50) K/uL Baso # (Auto) (0-0.2) K/uL Immature Gran # (Auto) (0.00-0.02) K/uL PT (9.0-12.0) Seconds INR (0.9-1.1) APTT (21.0-31.0) Seconds PTT Ratio D-Dimer (0-500) ug/L FEU Sodium (136-145) mmol/L Potassium Chloride (98-107) mmol/L Carbon Dioxide (21-32) mmol/L Anion Gap (3-11) BUN (6-23) mg/dl Creatinine (0.6-1.4) mg/dl Est Cr Clr Drug Dosing ml/min Est GFR ( Amer) ml/min Est GFR (Non-Af Amer) ml/min BUN/Creatinine Ratio (10-20) Glucose (70-99(Fasting)) mg/dl Calcium (8.5-10.1) mg/dl Troponin I High Sens (0-20) pg/ml B-Natriuretic Peptide 466 H (0-100) pg/ml Lipase (11-82) U/L SARS-CoV-2, RNA, NAAT (NEGATIVE) Imaging Data Radiologist's Impression: Chest X-Ray 07/01/22 08:05 SINGLE VIEW CHEST CLINICAL HISTORY: Atypical chest pain. FINDINGS: 2 AP, portable, upright chest radiographs are compared to study dated 06/26/2022. The examination is degraded by portable technique, apical lordotic positioning, and large body habitus. The heart is enlarged. There is pulmonary vascular congestion. Atelectasis is noted at both lung bases. No airspace consolidation or large pleural effusion is identified. No pneumothorax is seen. The bony thorax is grossly intact. IMPRESSION: Cardiomegaly with pulmonary vascular congestion ACT 112: Negative or not required by law. Electronically signed by: Dave Mckeon M.D. 07/01/2022 8:54 AM ECG Data Interpretation: Atrial fibrillation with rate of 99. QRS and QTc intervals within normal limits. No ST elevation or ST depression. MDM Narrative Vital signs stable. EMR reviewed. Patient has a 6.5 kg increase in his weight from 3 days ago. Patient's checks x-ray shows pulmonary vascular congestion. BNP 466 troponin negative. Patient will be diuresed with Lasix and admitted to the [facility] [place] [facility] team discussed case with Dr. Lugo who does know the patient and she recently admitted him and had her on her service. Impression & Plan CHF (congestive heart failure) Discharge Plan Visit Data Chief Complaint: Shortness of Breath/Dyspnea ED Provider: Rigo Ernst Discharge Problem: CHF (congestive heart failure) Patient Disposition: Admitted As Inpatient Discharge Instructions Interventions: ED Discharge Assessment Last Done: 07/01/22 11:15
[2022-07-01] MEDS ORDERED: HEPARIN-STOP ORDER ONE (17:00)
[2022-07-01] MEDS: APIXABAN 5 MG TABLET PO SCH (18:24)
[2022-07-01] MEDS: METOPROLOL SUCC 50MG EXT REL TAB PO SCH ×2 (19:46)
[2022-07-01] MEDS: VALSARTAN/SACUBITRIL 26/24MG TAB PO SCH (19:47)
[2022-07-01] MEDS: FUROSEMIDE 40 MG/4 ML VIAL IV SCH (19:47)
[2022-07-01] MEDS: CIPROFLOXACIN HCL 0.3% OP SOLN 2.5 ML BTL OT SCH (19:54)
[2022-07-01] MEDS: LANTUS PER UNIT CHARGE SQ SCH (20:53)
[2022-07-02 05:21] LABS: Basophils # (auto) 0.02 K/uL (0-0.2); Basophils % (auto) 0.2 %; Eosinophils # (auto) 0.09 K/uL (0-0.50); Eosinophils % (auto) 1.1 %; Hematocrit (blood only) 39.8 % (40.1-51.0); Immature Granulocytes # (auto) 0.03 K/uL (0.00-0.02); Immature Granulocytes % (auto) 0.4 %; Lymphocytes # (auto) 1.56 K/uL (1.2-3.4); Lymphocytes % (auto) 18.2 %; Mean Corpuscular Hemoglobin 29.6 pg (25.0-34.0); Mean Corpuscular Hgb Conc 32.7 g/dL (32.0-36.0); Mean Corpuscular Volume 90.7 fL (80.0-100.0); Mean Platelet Volume 10.3 fL (9.4-12.4); Monocytes # (auto) 0.79 K/uL (0.24-0.82); Monocytes % (auto) 9.2 %; Neutrophils # (auto) 6.08 K/uL (1.4-6.5); Neutrophils % (auto) 70.9 %; Platelet Count 239 K/uL (130-400); RDW Coefficient of Variation 16.8 % (11.5-14.5); RDW Standard Deviation 55.8 fL (36.4-46.3); Red Blood Count 4.39 M/uL (4.63-6.08); White Blood Count 8.57 K/ul (4.8-10.8)
--- NOTE | 2022-07-02 05:31 | Electrocardiogram Report ---
Test Reason : Blood Pressure : / mmHG Vent. Rate : 099 BPM Atrial Rate : 394 BPM P-R Int : 000 ms QRS Dur : 100 ms QT Int : 370 ms P-R-T Axes : 000 032 -17 degrees QTc Int : 474 ms Atrial fibrillation Incomplete right bundle branch block Nonspecific T wave abnormality Abnormal ECG When compared with ECG of 26-JUN-2022 09:08, Questionable change in QRS axis Confirmed by Jose Alberto Fink ([id number]) on 07/02/2022 5:31:45 AM Referred By: REFERRED SELF Confirmed By:Jose Alberto Fink
[2022-07-02 05:44] LABS: BUN Creatinine Ratio 22.7 (10-20); Calcium 9.1 mg/dl (8.5-10.1); Creatinine Clr Calc Pharmacy 290.5 ml/min; Est GFR (African American) 137.2 ml/min; Est GFR (Non-African American) 118.4 ml/min; Potassium 3.9 mmol/L (3.5-5.1)
--- NOTE | 2022-07-02 07:35 | Cardiology Progress Note ---
Date of Service July 02, 2022 Assessment & Plan (1) Heart failure with mid-range ejection fraction: (2) Cardiomyopathy: (3) Persistent atrial fibrillation: (4) Anticoagulant long-term use: (5) Tobacco abuse disorder: Plan ASSESSMENT/PLAN: 1. Acute on chronic heart failure with mid range EF: He appears hypervolemic. Dietary discretion likely playing a role. Discussed the importance of a low- sodium diet. Less than 2000 mg sodium per day. Agree with intravenous diure tics. Would try to achieve negative net fluid balance of 1-2 L in the next 24 hours. Strict I&Os recommended (discussed with patient). Daily weights. Recommend heart failure program and he is agreeable. Initiated low-dose Entresto. 2. Cardiomyopathy: Technically difficult echo. On personal review, LV systolic function could be even more significantly reduced but also done in the setting of AFib with RVR. Entresto started this hospital stay. Continue metoprolol succinate. Has risk factors for CAD but would suspect tachycardia induced cardiomyopathy. Weight precludes cardiac catheterization at this facility. Recommend optimizing medical therapy and heart rate and monitor as an outpatient. 3. Atrial fibrillation: Follows with Dr. Hale. Had plan for cardioversion once anticoagulated for at least 4 weeks. He has been noncompliant with warfarin in the past. Now on Eliquis. Atrial fibrillation could be playing a role in his heart failure. Continue rate control strategy for now. Heart rate reasonably controlled currently. Could further titrate metoprolol succinate to a total of 400 mg daily necessary. Could also use digoxin if needed. 4. Tobacco abuse: Congratulated on cutting back. Quit smoking altogether. 5. Disposition: Cardiology will continue to follow. Heart failure program referral. Patient care communicated with Dr. Weinstein, primary hospitalist. F ollow-up with Dr. Hale on discharge. Admission and Anticipated Discharge Date Admission Date: July 01, 2022 Subjective Patient seen this morning at 7:25 a.m. he was sleeping but woke up on verbal stimuli. He states that his breathing is better than yesterday. He denies chest pain, palpitations, syncope. He has not been collecting urine for collection. He was alone in his hospital room. Physical Exam Physical Exam: Gen.: No acute distress. Alert. HEENT: Anicteric sclera. Neck: Thick neck. Cardiac: PMI was not palpable. No ventricular heave. Irregularly irregular. Normal heart rate. Distant S1-S2. No murmurs, rubs, or gallops. Pulmonary: Clear to auscultation bilaterally without wheezes, rales, or rhonchi. Abdomen: Obese. Soft, nontender, nondistended, with normoactive bowel sounds. No bruits noted. Extremities: 1+ bilateral lower extremity edema. No cyanosis. Psychiatric: Affect appears appropriate. Results & Data ([facility]) Vital Signs (Past 12 Hours) Vital Signs Temp Pulse Resp BP Pulse Ox O2 Del Method 07/02/22 06:58 36.8 C 99 H 18 113/76 93 Room Air 07/02/22 04:32 36.4 C L 95 H 18 123/78 95 Room Air 07/01/22 19:54 Room Air 07/01/22 22:38 37.1 C 98 H 18 126/85 96 Room Air Intake & Output 06/30/22 07/01/22 07/02/22 07/03/22 06:59 06:59 06:59 06:59 Intake Total 935.833 / 935.833 Balance 935.833 / 935.833 Weight 550 lb 7.908 oz Laboratory Results Laboratory Results - last 24 hr 07/01/22 07/01/22 07/01/22 08:23 08:23 08:23 WBC 8.65 RBC 4.29 L Hgb 12.5 L Hct 40.1 MCV 93.5 MCH 29.1 MCHC 31.2 L RDW Std Deviation 57.9 H RDW Coeff of Amberly 17.2 H Plt Count 251 MPV 10.1 Immature Gran % (Auto) 0.2 Neut % (Auto) 70.9 Lymph % (Auto) 19.5 [place] % (Auto) 7.9 Eos % (Auto) 1.2 Baso % (Auto) 0.3 Neut # (Auto) 6.13 Lymph # (Auto) 1.69 [place] # (Auto) 0.68 Eos # (Auto) 0.10 Baso # (Auto) 0.03 Immature Gran # (Auto) 0.02 PT 11.9 INR 1.1 APTT 28.5 PTT Ratio 1.0 D-Dimer Sodium 138 Potassium TNP Chloride 106 Carbon Dioxide 26 Anion Gap 6 BUN 15 Creatinine 0.67 Est Cr Clr Drug Dosing 289.1 Est GFR ( Amer) 136.4 Est GFR (Non-Af Amer) 117.7 BUN/Creatinine Ratio 22.4 H Glucose 97 POC Glucose Calcium 8.9 Troponin I High Sens 6.0 D B-Natriuretic Peptide Lipase 19 SARS-CoV-2, RNA, NAAT 07/01/22 07/01/22 07/01/22 08:23 09:17 09:24 WBC RBC Hgb Hct MCV MCH MCHC RDW Std Deviation RDW Coeff of Amberly Plt Count MPV Immature Gran % (Auto) Neut % (Auto) Lymph % (Auto) [place] % (Auto) Eos % (Auto) Baso % (Auto) Neut # (Auto) Lymph # (Auto) [place] # (Auto) Eos # (Auto) Baso # (Auto) Immature Gran # (Auto) PT INR APTT PTT Ratio D-Dimer 1090 H* Sodium Potassium 4.3 Chloride Carbon Dioxide Anion Gap BUN Creatinine Est Cr Clr Drug Dosing Est GFR ( Amer) Est GFR (Non-Af Amer) BUN/Creatinine Ratio Glucose POC Glucose Calcium Troponin I High Sens B-Natriuretic Peptide Lipase SARS-CoV-2, RNA, NAAT NEGATIVE 07/01/22 07/01/22 07/01/22 09:29 12:21 16:38 WBC RBC Hgb Hct MCV MCH MCHC RDW Std Deviation RDW Coeff of Amberly Plt Count MPV Immature Gran % (Auto) Neut % (Auto) Lymph % (Auto) [place] % (Auto) Eos % (Auto) Baso % (Auto) Neut # (Auto) Lymph # (Auto) [place] # (Auto) Eos # (Auto) Baso # (Auto) Immature Gran # (Auto) PT INR APTT PTT Ratio D-Dimer Sodium Potassium Chloride Carbon Dioxide Anion Gap BUN Creatinine Est Cr Clr Drug Dosing Est GFR ( Amer) Est GFR (Non-Af Amer) BUN/Creatinine Ratio Glucose POC Glucose 106 H 109 H Calcium Troponin I High Sens B-Natriuretic Peptide 466 H Lipase SARS-CoV-2, RNA, NAAT 07/01/22 07/02/22 07/02/22 20:47 04:37 04:37 WBC 8.57 RBC 4.39 L Hgb 13.0 L Hct 39.8 L MCV 90.7 MCH 29.6 MCHC 32.7 RDW Std Deviation 55.8 H RDW Coeff of Amberly 16.8 H Plt Count 239 MPV 10.3 Immature Gran % (Auto) 0.4 Neut % (Auto) 70.9 Lymph % (Auto) 18.2 [place] % (Auto) 9.2 Eos % (Auto) 1.1 Baso % (Auto) 0.2 Neut # (Auto) 6.08 Lymph # (Auto) 1.56 [place] # (Auto) 0.79 Eos # (Auto) 0.09 Baso # (Auto) 0.02 Immature Gran # (Auto) 0.03 H PT INR APTT PTT Ratio D-Dimer Sodium 138 Potassium 3.9 Chloride 104 Carbon Dioxide 26 Anion Gap 8 BUN 15 Creatinine 0.66 Est Cr Clr Drug Dosing 290.5 Est GFR ( Amer) 137.2 Est GFR (Non-Af Amer) 118.4 BUN/Creatinine Ratio 22.7 H Glucose 96 POC Glucose 98 Calcium 9.1 Troponin I High Sens B-Natriuretic Peptide Lipase SARS-CoV-2, RNA, NAAT Diagnostic Findings Telemetry personally reviewed: Atrial fibrillation with reasonable heart rate, mostly in 80s. Medications Administered Current Inpatient Medications Acetaminophen (Acetaminophen 325 Mg Tab) 650 mg PO Q4H PRN PRN Reason: Pain or Fever Stop: 07/31/22 12:00 Albuterol (Albuterol 0.083% Nebu Soln 3 Ml Vial) 2.5 mg INH Q4R PRN; Protocol PRN Reason: Shortness Of Breath Stop: 07/31/22 12:00 Apixaban (Apixaban 5 Mg Tablet) 5 mg PO BID TOI Stop: 07/31/22 18:59 Last Admin: 07/01/22 18:24 Dose: 5 mg Ciprofloxacin (Ciprofloxacin Hcl 0.3% Op Soln 2.5 Ml Btl) 10 drops OT BID TOI Stop: 07/11/22 20:59 Last Admin: 07/01/22 19:54 Dose: 10 drops Dextrose (Dextrose 50% 50 Ml Syringe) 25 - 50 ml IV UD PRN; Protocol PRN Reason: Hypoglycemia Protocol Stop: 07/31/22 12:00 Furosemide (Furosemide 40 Mg/4 Ml Vial) 40 mg IV BID TOI Stop: 07/31/22 20:59 Last Admin: 07/01/22 19:47 Dose: 40 mg Glucagon (Glucagon For Inj 1 Mg Vial) 1 mg SQ UD PRN; Protocol PRN Reason: Hypoglycemia Protocol Stop: 07/31/22 12:00 Glucose (Glucose 40% Gel 15 Gm Tube) 15 - 30 gm PO UD PRN; Protocol PRN Reason: Hypoglycemia Protocol Stop: 07/31/22 12:00 Glucose (Glucose 10 Tab/Tube) 4 - 8 tab PO UD PRN; Protocol PRN Reason: Hypoglycemia Treatment Stop: 07/31/22 12:00 Insulin Aspart (Insulin Aspart Per Unit) 0 units SC ACHS TOI Stop: 07/31/22 12:00 Last Admin: 07/01/22 20:53 Dose: Not Given Insulin Glargine (Lantus Per Unit Charge) 5 units SQ BID TOI Stop: 07/31/22 20:59 Last Admin: 07/01/22 20:53 Dose: 5 units Metoprolol Succinate (Metoprolol Succ 50mg Ext Rel Tab) 50 mg PO BID TOI Stop: 07/31/22 20:59 Last Admin: 07/01/22 19:46 Dose: 50 mg Metoprolol Succinate (Metoprolol Succ 50mg Ext Rel Tab) 100 mg PO BID TOI Stop: 07/31/22 20:59 Last Admin: 07/01/22 19:46 Dose: 100 mg Miscellaneous (Carbohydrates For Hypoglycemia ) 15 - 30 gm PO UD PRN PRN Reason: Hypoglycemia Protocol Stop: 07/31/22 12:00 Sacubitril/Valsartan (Valsartan/Sacubitril 26/24mg Tab) 1 tab PO BID OTI Stop: 07/31/22 20:59 Last Admin: 07/01/22 19:47 Dose: 1 tab Umeclidinium/Vilanterol (Umeclidinium/Vilanterol 62.5/25mcg 7 Puffs/Inhaler) 1 puffs INH DAILY TOI Stop: 08/01/22 08:59 PG Care Time/CCT Total # of Minutes Spent Total Time Spent with Patient: Total time spent is greater than 50% in coordination of care (as documented) at patient's floor/unit and/or counseling patient: Coding Level of Care Code 11219 Office/Outpt Visit, Est Diagnoses Heart failure with mid-range ejection fraction I50.22 Cardiomyopathy I42.9 Persistent atrial fibrillation I48.19 Anticoagulant long-term use Z79.01 Tobacco abuse disorder Z72.0
[2022-07-02] MEDS: INSULIN ASPART PER UNIT SC SCH ×4 (08:28→20:50)
[2022-07-02] MEDS: LANTUS PER UNIT CHARGE SQ SCH ×2 (08:29→21:01)
[2022-07-02] MEDS: FUROSEMIDE 40 MG/4 ML VIAL IV SCH ×2 (08:35→21:08)
[2022-07-02] MEDS: VALSARTAN/SACUBITRIL 26/24MG TAB PO SCH ×2 (08:37→21:09)
[2022-07-02] MEDS: CIPROFLOXACIN HCL 0.3% OP SOLN 2.5 ML BTL OT SCH ×2 (08:37→21:08)
[2022-07-02] MEDS: METOPROLOL SUCC 50MG EXT REL TAB PO SCH ×4 (08:37→21:09)
[2022-07-02] MEDS: APIXABAN 5 MG TABLET PO SCH ×2 (08:37→21:08)
[2022-07-02] MEDS: UMECLIDINIUM/VILANTEROL 62.5/25MCG 7 PUFFS/INHALER INH SCH (08:38)
--- NOTE | 2022-07-02 13:25 | Hospitalist Progress Note ---
Date of Service July 02, 2022 Assessment & Plan (1) Heart failure with mid-range ejection fraction: Plan: Presents with worsening SOB on admission after recent discharge for CHF hospitalization Reports medication adherence to his Lasix 40 mg daily at home since discharge on 06/28. Patient does continue to have dietary indiscretion, though improved over the last several days compared to diet on last admission (ex: 06/28 had buttered noodles for dinner, 06/29 had two ham sandwiches for lunch and pizza for dinner). LVEF 06/26/2022 of 40-50%, though technically difficult study and was done while patient was in A. fib with RVR. ER bed scale reported weight of 253.4 kg, this is up from 246.8 kg on discharge 06/28, suggesting fluid overload. On repeat evaluation patient is not tachycardic nor tachypneic, saturating well on room air. While PE cannot be definitively ruled out given cannot perform CT PE protocol, this is less likely than CHF as cause given increase in weight over the last several days. Patient had bilateral lower extremity ultrasound 3 days ago without evidence of DVT. 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 -CHF program consulted. (2) Cardiomyopathy: Plan: LVEF as described above and echo on 06/26. While patient does have risk factors for CAD, it is likely that there was some tachycardia induced cardiomyopathy on that echo. Repeat echo in the future per discretion of outpatient cardiology. (3) Afib: Plan: History of A. fib, with last admission 1 week ago for A. fib with RVR and evidence of acute CHF. Patient is not in RVR at this time, with heart rate in the 80-90s. Continue metoprolol succinate 150 mg twice daily, and can titrate up to 200 mg twice daily if necessary. As patient is unlikely to be compliant with reinstituting warfarin, will continue Eliquis 5 mg twice daily. Drug trough concentration is pending from last admission. (4) Anticoagulant long-term use: Plan: Patient has been prescribed anticoagulants for a long time, however on last admit he reported that he had not been taking his warfarin for about a month. He was started on Eliquis after discussion with Dr. Muniz about options for anticoagulation for A. fib given his refusal to take warfarin or Xarelto (due to previous side effects). (5) Type II diabetes mellitus: Plan: A1c 6.8% on 06/27. Basal/bolus insulin while admitted with transition back to home regimen on discharge. (6) Tobacco abuse disorder: Plan: Offered nicotine patch, declined. Recommend smoking cessation. Continue Anoro Ellipta. Home albuterol nebs every 6 hours as needed for wheezing. Plan Full code Eliquis for DVT prophylaxis Dispo-continued Telemetry status Admission and Anticipated Discharge Date Admission Date: July 01, 2022 Subjective Pt feels better, making a lot of urine. No CP. Feels his SOB is much improved although he is tachypneic at rest after just returning from the bathroom. Says leg swelling is improved. Discussed his care w/ Cardiology today Tele with rate controlled Afib, rates 80-90s Review of Systems Review of Systems: All systems reviewed & are unremarkable except as noted in HPI & below Physical Exam Constitutional: WD/WN, vitals as above + morbidly obese Eyes: + anicteric sclerae Neck: trachea midline, no thyromegaly Respiratory: + tachypneic (at rest after just returning from bathroom) Auscultation: + diminished lung sounds (throughout due to body habitus); no crackles and no wheezes Cardiovascular: Rate/Rhythm: regular rate and + irregularly irregular Heart Sounds: no murmur Extremities: + edema (trace pitting edema feet and legs bilat) Chest (Breasts): Chest: normal inspection of chest Gastrointestinal (Abdomen): normal bowel sounds, soft, nontender, no hepatosplenomegaly (obese abdomen) Musculoskeletal: Extremities: extremities normal to inspection; no cyanosis and no clubbing Skin: no rashes, warm and dry Neurologic: moves all extremities and awake; no focal motor deficits Psychiatric: A+Ox3, euthymic affect Results & Data Results & Data ([facility]) Vital Signs (Past 12 Hours) Vital Signs Temp Pulse Resp BP Pulse Ox O2 Del Method 07/02/22 08:00 Room Air 07/02/22 11:37 36.3 C L 99 H 22 100/70 96 Room Air 07/02/22 06:58 36.8 C 99 H 18 113/76 93 Room Air 07/02/22 04:32 36.4 C L 95 H 18 123/78 95 Room Air Laboratory Results 07/02/22 07/02/22 07/02/22 Range/Units 11:37 07:43 04:37 WBC (4.8-10.8) K/ul RBC (4.63-6.08) M/uL Hgb (14.0-18.0) g/dl Hct (40.1-51.0) % MCV (80.0-100.0) fL MCH (25.0-34.0) pg MCHC (32.0-36.0) g/dL RDW Std Deviation (36.4-46.3) fL RDW Coeff of Amberly (11.5-14.5) % Plt Count (130-400) K/uL MPV (9.4-12.4) fL Immature Gran % (Auto) % Neut % (Auto) % Lymph % (Auto) % [place] % (Auto) % Eos % (Auto) % Baso % (Auto) % Neut # (Auto) (1.4-6.5) K/uL Lymph # (Auto) (1.2-3.4) K/uL [place] # (Auto) (0.24-0.82) K/uL Eos # (Auto) (0-0.50) K/uL Baso # (Auto) (0-0.2) K/uL Immature Gran # (Auto) (0.00-0.02) K/uL Sodium 138 (136-145) mmol/L Potassium 3.9 (3.5-5.1) mmol/L Chloride 104 (98-107) mmol/L Carbon Dioxide 26 (21-32) mmol/L Anion Gap 8 (3-11) BUN 15 (6-23) mg/dl Creatinine 0.66 (0.6-1.4) mg/dl Est Cr Clr Drug Dosing 290.5 ml/min Est GFR ( Amer) 137.2 ml/min Est GFR (Non-Af Amer) 118.4 ml/min BUN/Creatinine Ratio 22.7 H (10-20) Glucose 96 (70-99(Fasting)) mg/dl POC Glucose 99 93 (70-99) mg/dl Calcium 9.1 (8.5-10.1) mg/dl 07/02/22 07/01/22 07/01/22 Range/Units 04:37 20:47 16:38 WBC 8.57 (4.8-10.8) K/ul RBC 4.39 L (4.63-6.08) M/uL Hgb 13.0 L (14.0-18.0) g/dl Hct 39.8 L (40.1-51.0) % MCV 90.7 (80.0-100.0) fL MCH 29.6 (25.0-34.0) pg MCHC 32.7 (32.0-36.0) g/dL RDW Std Deviation 55.8 H (36.4-46.3) fL RDW Coeff of Amberly 16.8 H (11.5-14.5) % Plt Count 239 (130-400) K/uL MPV 10.3 (9.4-12.4) fL Immature Gran % (Auto) 0.4 % Neut % (Auto) 70.9 % Lymph % (Auto) 18.2 % [place] % (Auto) 9.2 % Eos % (Auto) 1.1 % Baso % (Auto) 0.2 % Neut # (Auto) 6.08 (1.4-6.5) K/uL Lymph # (Auto) 1.56 (1.2-3.4) K/uL [place] # (Auto) 0.79 (0.24-0.82) K/uL Eos # (Auto) 0.09 (0-0.50) K/uL Baso # (Auto) 0.02 (0-0.2) K/uL Immature Gran # (Auto) 0.03 H (0.00-0.02) K/uL Sodium (136-145) mmol/L Potassium (3.5-5.1) mmol/L Chloride (98-107) mmol/L Carbon Dioxide (21-32) mmol/L Anion Gap (3-11) BUN (6-23) mg/dl Creatinine (0.6-1.4) mg/dl Est Cr Clr Drug Dosing ml/min Est GFR ( Amer) ml/min Est GFR (Non-Af Amer) ml/min BUN/Creatinine Ratio (10-20) Glucose (70-99(Fasting)) mg/dl POC Glucose 98 109 H (70-99) mg/dl Calcium (8.5-10.1) mg/dl PG Care Time/CCT Total # of Minutes Spent Total Time Spent with Patient: Total time spent is greater than 50% in coordination of care (as documented) at patient's floor/unit and/or counseling patient: Coding Level of Care Code 65157 Subseq Hosp Care Lvl 3 Diagnoses Heart failure with mid-range ejection fraction I50.22 Cardiomyopathy I42.9 Afib I48.91 Anticoagulant long-term use Z79.01 Type II diabetes mellitus E11.9 Tobacco abuse disorder Z72.0
[2022-07-03 07:05] LABS: BUN Creatinine Ratio 20.5 (10-20); Calcium 9.4 mg/dl (8.5-10.1); Creatinine Clr Calc Pharmacy 258.4 ml/min; Est GFR (African American) 131.7 ml/min; Est GFR (Non-African American) 113.6 ml/min; Magnesium 1.9 mg/dl (1.7-2.4); Potassium 3.9 mmol/L (3.5-5.1)
[2022-07-03] MEDS: METOPROLOL SUCC 50MG EXT REL TAB PO SCH ×4 (09:48→20:38)
[2022-07-03] MEDS: UMECLIDINIUM/VILANTEROL 62.5/25MCG 7 PUFFS/INHALER INH SCH (09:48)
[2022-07-03] MEDS: VALSARTAN/SACUBITRIL 26/24MG TAB PO SCH ×2 (09:48→20:38)
[2022-07-03] MEDS: APIXABAN 5 MG TABLET PO SCH ×2 (09:48→20:37)
[2022-07-03] MEDS: LANTUS PER UNIT CHARGE SQ SCH ×2 (09:49→22:05)
[2022-07-03] MEDS: FUROSEMIDE 40 MG/4 ML VIAL IV SCH ×2 (09:49→20:38)
[2022-07-03] MEDS: CIPROFLOXACIN HCL 0.3% OP SOLN 2.5 ML BTL OT SCH ×2 (09:49→20:37)
[2022-07-03] MEDS: INSULIN ASPART PER UNIT SC SCH ×4 (09:50→22:04)
--- NOTE | 2022-07-03 17:35 | Cardiology Progress Note ---
Date of Service July 03, 2022 Assessment & Plan (1) Heart failure with mid-range ejection fraction: (2) Cardiomyopathy: (3) Persistent atrial fibrillation: (4) Anticoagulant long-term use: (5) Tobacco abuse disorder: Plan ASSESSMENT/PLAN: 1. Acute on chronic heart failure with mid range EF: Still appears hypervolemic but feeling better. Recommended continued IV diuretic and he is agreeable but would like to be discharged tomorrow. He was agreeable to receive 2 doses of Lasix tomorrow. The afternoon dose can be given in the earlier mid afternoon so that he can be discharged by evening. Dietary discretion likely playing a role. Discussed the importance of a low-sodium diet. Less than 2000 mg sodium per day. Would try to achieve negative net fluid balance of 1-2 L in the next 24 hours. Strict I&Os recommended (discussed with patient and nursing staff). Da daniele weights. Recommend heart failure program. Initiated low-dose Entresto during this hospital stay. On discharge, would recommend Lasix 40 mg twice daily. 2. Cardiomyopathy: Technically difficult echo. On personal review, LV systolic function could be even more significantly reduced but also done in the setting of AFib with RVR. Entresto started this hospital stay. Continue metoprolol succinate. Has risk factors for CAD but would suspect tachycardia induced cardiomyopathy. Weight precludes cardiac catheterization at this facility. Recommend optimizing medical therapy and heart rate and monitor as an outpatient. 3. Atrial fibrillation: Follows with Dr. Hale. Had plan for cardioversion once anticoagulated for at least 4 weeks. He has been noncompliant with warfarin in the past. Now on Eliquis. Atrial fibrillation could be playing a role in his heart failure. Continue rate control strategy for now. Could further titrate metoprolol succinate to a total of 400 mg daily necessary. Could also use digoxin if needed. Heart rate reasonably controlled for now. 4. Tobacco abuse: Congratulated on cutting back. Smoking cessation recommended. 5. Disposition: Cardiology will continue to follow. Heart failure program for close follow-up on discharge. Patient care communicated with Dr. Santiago, primary hospitalist. Follow-up with Dr. Hale on discharge. Admission and Anticipated Discharge Date Admission Date: July 03, 2022 Subjective Patient seen this afternoon with his ex- at the bedside. He would like to be discharged home before Thanksgiving. He believes he is back to baseline. He denies shortness of breath, syncope, near-syncope, palpitations, or bleeding. Unfortunately, his urine is still not being calculated completely. Physical Exam Physical Exam: Gen.: No acute distress. Alert. HEENT: Anicteric sclera. Neck: Thick neck. Cardiac: PMI was not palpable. No ventricular heave. Irregularly irregular with normal rate. Distant S1-S2. No murmurs, rubs, or gallops. Pulmonary: Clear to auscultation bilaterally without wheezes, rales, or rhonchi. Abdomen: Obese. Soft, nontender, nondistended, with normoactive bowel sounds. No bruits noted. Extremities: 1+ bilateral lower extremity edema. No cyanosis. Psychiatric: Affect appears appropriate. Results & Data ([facility]) Vital Signs (Past 12 Hours) Vital Signs Temp Pulse Pulse Resp BP Pulse Ox O2 Del Method 07/03/22 15:44 36.5 C 106 H 20 102/70 96 Room Air 07/03/22 08:00 89 07/03/22 11:59 36.8 C 90 18 103/74 94 Room Air 07/03/22 07:36 36.6 C 87 18 99/72 L 97 Room Air Laboratory Results Laboratory Results - last 24 hr 07/02/22 07/03/22 07/03/22 20:10 05:56 07:57 Sodium 137 Potassium 3.9 Chloride 103 Carbon Dioxide 26 Anion Gap 8 BUN 15 Creatinine 0.73 Est Cr Clr Drug Dosing 258.4 Est GFR ( Amer) 131.7 Est GFR (Non-Af Amer) 113.6 BUN/Creatinine Ratio 20.5 H Glucose 94 POC Glucose 111 H 97 Calcium 9.4 Magnesium 1.9 07/03/22 07/03/22 11:43 17:12 Sodium Potassium Chloride Carbon Dioxide Anion Gap BUN Creatinine Est Cr Clr Drug Dosing Est GFR ( Amer) Est GFR (Non-Af Amer) BUN/Creatinine Ratio Glucose POC Glucose 99 105 H Calcium Magnesium Diagnostic Findings Telemetry personally reviewed: Atrial fibrillation with reasonable heart rate control. Medications Administered Current Inpatient Medications Acetaminophen (Acetaminophen 325 Mg Tab) 650 mg PO Q4H PRN PRN Reason: Pain or Fever Stop: 07/31/22 12:00 Albuterol (Albuterol 0.083% Nebu Soln 3 Ml Vial) 2.5 mg INH Q4R PRN; Protocol PRN Reason: Shortness Of Breath Stop: 07/31/22 12:00 Apixaban (Apixaban 5 Mg Tablet) 5 mg PO BID TOI Stop: 07/31/22 18:59 Last Admin: 07/03/22 09:48 Dose: 5 mg Ciprofloxacin (Ciprofloxacin Hcl 0.3% Op Soln 2.5 Ml Btl) 10 drops OT BID TOI Stop: 07/11/22 20:59 Last Admin: 07/03/22 09:49 Dose: 10 drops Dextrose (Dextrose 50% 50 Ml Syringe) 25 - 50 ml IV UD PRN; Protocol PRN Reason: Hypoglycemia Protocol Stop: 07/31/22 12:00 Furosemide (Furosemide 40 Mg/4 Ml Vial) 40 mg IV BID TOI Stop: 07/31/22 20:59 Last Admin: 07/03/22 09:49 Dose: 40 mg Glucagon (Glucagon For Inj 1 Mg Vial) 1 mg SQ UD PRN; Protocol PRN Reason: Hypoglycemia Protocol Stop: 07/31/22 12:00 Glucose (Glucose 40% Gel 15 Gm Tube) 15 - 30 gm PO UD PRN; Protocol PRN Reason: Hypoglycemia Protocol Stop: 07/31/22 12:00 Glucose (Glucose 10 Tab/Tube) 4 - 8 tab PO UD PRN; Protocol PRN Reason: Hypoglycemia Treatment Stop: 07/31/22 12:00 Insulin Aspart (Insulin Aspart Per Unit) 0 units SC ACHS TOI Stop: 07/31/22 12:00 Last Admin: 07/03/22 13:17 Dose: Not Given Insulin Glargine (Lantus Per Unit Charge) 5 units SQ BID TOI Stop: 07/31/22 20:59 Last Admin: 07/03/22 09:49 Dose: 5 units Metoprolol Succinate (Metoprolol Succ 50mg Ext Rel Tab) 50 mg PO BID TOI Stop: 07/31/22 20:59 Last Admin: 07/03/22 09:48 Dose: Not Given Metoprolol Succinate (Metoprolol Succ 50mg Ext Rel Tab) 100 mg PO BID TOI Stop: 07/31/22 20:59 Last Admin: 07/03/22 09:50 Dose: Not Given Miscellaneous (Carbohydrates For Hypoglycemia ) 15 - 30 gm PO UD PRN PRN Reason: Hypoglycemia Protocol Stop: 07/31/22 12:00 Sacubitril/Valsartan (Valsartan/Sacubitril 26/24mg Tab) 1 tab PO BID TOI Stop: 07/31/22 20:59 Last Admin: 07/03/22 09:48 Dose: 1 tab Umeclidinium/Vilanterol (Umeclidinium/Vilanterol 62.5/25mcg 7 Puffs/Inhaler) 1 puffs INH DAILY TOI Stop: 08/01/22 08:59 Last Admin: 07/03/22 09:48 Dose: 1 puffs PG Care Time/CCT Total # of Minutes Spent Total Time Spent with Patient: Total time spent is greater than 50% in coordination of care (as documented) at patient's floor/unit and/or counseling patient: Coding Level of Care Code 70167 Subseq Hosp Care Lvl 3 Diagnoses Heart failure with mid-range ejection fraction I50.22 Cardiomyopathy I42.9 Persistent atrial fibrillation I48.19 Anticoagulant long-term use Z79.01 Tobacco abuse disorder Z72.0
--- NOTE | 2022-07-03 20:31 | Hospitalist Progress Note ---
Date of Service July 03, 2022 Assessment & Plan (1) Heart failure with mid-range ejection fraction: Plan: Presents with worsening SOB on admission after recent discharge for CHF hospitalization Reports medication adherence to his Lasix 40 mg daily at home since discharge on 06/28. Patient does continue to have dietary indiscretion, though improved over the last several days compared to diet on last admission (ex: 06/28 had buttered noodles for dinner, 06/29 had two ham sandwiches for lunch and pizza for dinner). LVEF 06/26/2022 of 40-50%, though technically difficult study and was done while patient was in A. fib with RVR. ER bed scale reported weight of 253.4 kg, this is up from 246.8 kg on discharge 06/28, suggesting fluid overload. On repeat evaluation patient is not tachycardic nor tachypneic, saturating well on room air. While PE cannot be definitively ruled out given cannot perform CT PE protocol, this is less likely than CHF as cause given increase in weight over the last several days. Patient had bilateral lower extremity ultrasound 3 days ago without evidence of DVT. 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 -CHF program consulted. Plan to discharge tomorrow after 2 more doses of IV lasix. (2) Cardiomyopathy: Plan: LVEF as described above and echo on 06/26. While patient does have risk factors for CAD, it is likely that there was some tachycardia induced cardiomyopathy on that echo. Repeat echo in the future per discretion of outpatient cardiology. (3) Afib: Plan: History of A. fib, with last admission 1 week ago for A. fib with RVR and evidence of acute CHF. Patient is not in RVR at this time, with heart rate in the 80-90s. Continue metoprolol succinate 150 mg twice daily, and can titrate up to 200 mg twice daily if necessary. As patient is unlikely to be compliant with reinstituting warfarin, will con tinue Eliquis 5 mg twice daily. Drug trough concentration is pending from last admission. (4) Anticoagulant long-term use: Plan: Patient has been prescribed anticoagulants for a long time, however on last admit he reported that he had not been taking his warfarin for about a month. He was started on Eliquis after discussion with Dr. Muniz about options for anticoagulation for A. fib given his refusal to take warfarin or Xarelto (due to previous side effects). (5) Type II diabetes mellitus: Plan: A1c 6.8% on 06/27. Basal/bolus insulin while admitted with transition back to home regimen on discharge. (6) Tobacco abuse disorder: Plan: Offered nicotine patch, declined. Recommend smoking cessation. Continue Anoro Ellipta. Home albuterol nebs every 6 hours as needed for wheezing. Plan Full code Eliquis for DVT prophylaxis Dispo-continued Telemetry status Admission and Anticipated Discharge Date Admission Date: July 03, 2022 Subjective Patient reports feeling better. He has no new complaints. Review of Systems Review of Systems: All systems reviewed & are unremarkable except as noted in HPI & below Physical Exam Constitutional: WD/WN, vitals as above Eyes: PERRL, conjunctivae normal, anicteric sclerae + anicteric sclerae ENMT: external ear and nose normal, oropharynx normal Neck: trachea midline, no thyromegaly Respiratory: Auscultation: + diminished lung sounds (throughout due to body habitus); no crackles and no wheezes Cardiovascular: RRR, no murmur, no edema Rate/Rhythm: regular rate and + irregularly irregular Heart Sounds: no murmur Extremities: + edema (trace pitting edema feet and legs bilat) Gastrointestinal (Abdomen): normal bowel sounds, soft, nontender, no hepatosplenomegaly (obese abdomen) Musculoskeletal: Extremities: extremities normal to inspection; no cyanosis and no clubbing Skin: no rashes, warm and dry Neurologic: moves all extremities and awake; no focal motor deficits Psychiatric: A+Ox3, euthymic affect Lymphatic: no lymphedema Results & Data Results & Data ([facility]) Vital Signs (Past 12 Hours) Vital Signs Temp Pulse Resp BP Pulse Ox O2 Del Method 07/03/22 20:07 Room Air 07/03/22 15:44 36.5 C 106 H 20 102/70 96 Room Air 07/03/22 11:59 36.8 C 90 18 103/74 94 Room Air PG Care Time/CCT Total # of Minutes Spent Total Time Spent with Patient: Total time spent is greater than 50% in coordination of care (as documented) at patient's floor/unit and/or counseling patient: Coding Level of Care Code 04173 Subseq Hosp Care Lvl 2 Diagnoses Heart failure with mid-range ejection fraction I50.22 Cardiomyopathy I42.9 Afib I48.91 Anticoagulant long-term use Z79.01 Type II diabetes mellitus E11.9 Tobacco abuse disorder Z72.0 Time Spent (min) 25
[2022-07-04 06:04] LABS: Hematocrit (blood only) 44.5 % (40.1-51.0); Hemoglobin 14.5 g/dl (14.0-18.0); Mean Corpuscular Hemoglobin 29.4 pg (25.0-34.0); Mean Corpuscular Hgb Conc 32.6 g/dL (32.0-36.0); Mean Corpuscular Volume 90.1 fL (80.0-100.0); Mean Platelet Volume 9.9 fL (9.4-12.4); Platelet Count 290 K/uL (130-400); RDW Coefficient of Variation 16.7 % (11.5-14.5); RDW Standard Deviation 53.8 fL (36.4-46.3); Red Blood Count 4.94 M/uL (4.63-6.08); White Blood Count 8.93 K/ul (4.8-10.8)
[2022-07-04 06:37] LABS: BUN Creatinine Ratio 21.3 (10-20); Calcium 9.7 mg/dl (8.5-10.1); Creatinine Clr Calc Pharmacy 229.5 ml/min; Est GFR (African American) 126.8 ml/min; Est GFR (Non-African American) 109.4 ml/min; Potassium 3.7 mmol/L (3.5-5.1)
[2022-07-04] MEDS: INSULIN ASPART PER UNIT SC SCH ×2 (09:42→12:19)
[2022-07-04] MEDS: LANTUS PER UNIT CHARGE SQ SCH (09:48)
[2022-07-04] MEDS: UMECLIDINIUM/VILANTEROL 62.5/25MCG 7 PUFFS/INHALER INH SCH (09:55)
[2022-07-04] MEDS: APIXABAN 5 MG TABLET PO SCH (09:56)
[2022-07-04] MEDS: METOPROLOL SUCC 50MG EXT REL TAB PO SCH ×2 (09:56→09:57)
[2022-07-04] MEDS: VALSARTAN/SACUBITRIL 26/24MG TAB PO SCH (09:56)
[2022-07-04] MEDS: FUROSEMIDE 40 MG/4 ML VIAL IV SCH ×2 (09:57→15:18)
[2022-07-04] MEDS: CIPROFLOXACIN HCL 0.3% OP SOLN 2.5 ML BTL OT SCH (09:57)
--- NOTE | 2022-07-04 13:06 | Cardiology Progress Note ---
Date of Service July 04, 2022 Assessment & Plan (1) Heart failure with mid-range ejection fraction: (2) Cardiomyopathy: (3) Persistent atrial fibrillation: (4) Anticoagulant long-term use: (5) Tobacco abuse disorder: Plan ASSESSMENT/PLAN: 1. Acute on chronic heart failure with mid range EF: Much improved. I&Os have been inaccurate as he has not been collecting his urine. His weight is trending downward. Recommend Lasix 40 mg p.o. b.i.d. on discharge. We once again discussed the importance of a low-sodium diet, less than 2000 mg daily. He states that he is going to read the labels and do his best. Dietary discretion likely playing a role. Daily weights. Recommend heart failure program. Initiated low-dose Entresto during this hospital stay. 2. Cardiomyopathy: Technically difficult echo. On personal review, LV systolic function could be even more significantly reduced but also done in the setting of AFib with RVR. Entresto started this hospital stay. Continue metoprolol succinate. Has risk factors for CAD but would suspect tachycardia induced cardiomyopathy. Weight precludes cardiac catheterization at this facility. Recommend optimizing medical therapy and heart rate and monitor as an outpatient. 3. Atrial fibrillation: Follows with Dr. Hale. Had plan for cardioversion once anticoagulated for at least 4 weeks. He has been noncompliant with warfarin in the past. Now on Eliquis. Atrial fibrillation could be playing a role in his heart failure. Continue rate control strategy for now. Increase metoprolol succinate to a total of 400 mg daily. Heart rate is slightly elevated at times even at rest and anticipate further tachycardia with exertion. Could also use digoxin if needed. 4. Tobacco abuse: Congratulated on cutting back. Smoking cessation recommended. 5. Disposition: Patient would like to be discharged today. Close follow-up in the Heart failure program. Patient care communicated with Dr. Santiago, primary hospitalist. Follow-up with Dr. Hale on discharge. Patient is aware of both his heart failure program visit and visit with Dr. Hale. Admission and Anticipated Discharge Date Admission Date: July 03, 2022 Subjective Patient feels better. Denies shortness of breath, chest pain, syncope, near- syncope, palpitations, or bleeding. He wants to go home early this afternoon. He was alone in his hospital room. Physical Exam Physical Exam: Gen.: No acute distress. Alert. HEENT: Anicteric sclera. Neck: Thick neck. Cardiac: PMI was not palpable. No ventricular heave. Irregularly irregular. Distant S1-S2. No murmurs, rubs, or gallops. Pulmonary: Clear to auscultation bilaterally without wheezes, rales, or rhonchi. Abdomen: Obese. Soft, nontender, nondistended, with normoactive bowel sounds. No bruits noted. Extremities: 1+ bilateral lower extremity edema (much improved and less tense). No cyanosis. Psychiatric: Affect appears appropriate. Results & Data ([facility]) Vital Signs (Past 12 Hours) Vital Signs Temp Pulse Pulse Resp BP BP Pulse Ox 07/04/22 08:00 98 H 07/04/22 11:10 36.6 C 100 H 17 96/67 L 94 07/04/22 07:23 36.6 C 100 H 17 104/70 97 07/04/22 03:38 36.9 C 110 H 20 102/66 94 O2 Del Method 07/04/22 08:00 07/04/22 11:10 Room Air 07/04/22 07:23 Room Air 07/04/22 03:38 Room Air Intake & Output 07/02/22 07/03/22 07/04/22 07/05/22 06:59 06:59 06:59 06:59 Intake Total 935.833 / 935.833 785 / 785 1460 / 1460 Output Total 450 / 450 1 / Balance 935.833 / 935.833 335 / 335 1459 / 1459 Weight 550 lb 7.908 oz 537 lb 14.846 oz 517 lb 3.271 oz Laboratory Results Laboratory Results - last 24 hr 07/03/22 07/03/22 07/04/22 17:12 21:52 05:29 WBC 8.93 RBC 4.94 Hgb 14.5 Hct 44.5 MCV 90.1 MCH 29.4 MCHC 32.6 RDW Std Deviation 53.8 H RDW Coeff of Amberly 16.7 H Plt Count 290 MPV 9.9 Sodium Potassium Chloride Carbon Dioxide Anion Gap BUN Creatinine Est Cr Clr Drug Dosing Est GFR ( Amer) Est GFR (Non-Af Amer) BUN/Creatinine Ratio Glucose POC Glucose 105 H 100 H Calcium B-Natriuretic Peptide 07/04/22 07/04/22 07/04/22 05:29 05:29 07:40 WBC RBC Hgb Hct MCV MCH MCHC RDW Std Deviation RDW Coeff of Amberly Plt Count MPV Sodium 137 Potassium 3.7 Chloride 101 Carbon Dioxide 26 Anion Gap 10 BUN 17 Creatinine 0.80 Est Cr Clr Drug Dosing 229.5 Est GFR ( Amer) 126.8 Est GFR (Non-Af Amer) 109.4 BUN/Creatinine Ratio 21.3 H Glucose 95 POC Glucose 93 Calcium 9.7 B-Natriuretic Peptide 169 H 07/04/22 11:55 WBC RBC Hgb Hct MCV MCH MCHC RDW Std Deviation RDW Coeff of Amberly Plt Count MPV Sodium Potassium Chloride Carbon Dioxide Anion Gap BUN Creatinine Est Cr Clr Drug Dosing Est GFR ( Amer) Est GFR (Non-Af Amer) BUN/Creatinine Ratio Glucose POC Glucose 116 H Calcium B-Natriuretic Peptide Diagnostic Findings Telemetry personally reviewed: Atrial fibrillation. Heart rate 90s to 100s. Medications Administered Current Inpatient Medications Acetaminophen (Acetaminophen 325 Mg Tab) 650 mg PO Q4H PRN PRN Reason: Pain or Fever Stop: 07/31/22 12:00 Albuterol (Albuterol 0.083% Nebu Soln 3 Ml Vial) 2.5 mg INH Q4R PRN; Protocol PRN Reason: Shortness Of Breath Stop: 07/31/22 12:00 Apixaban (Apixaban 5 Mg Tablet) 5 mg PO BID TOI Stop: 07/31/22 18:59 Last Admin: 07/04/22 09:56 Dose: 5 mg Ciprofloxacin (Ciprofloxacin Hcl 0.3% Op Soln 2.5 Ml Btl) 10 drops OT BID TOI Stop: 07/11/22 20:59 Last Admin: 07/04/22 09:57 Dose: 10 drops Dextrose (Dextrose 50% 50 Ml Syringe) 25 - 50 ml IV UD PRN; Protocol PRN Reason: Hypoglycemia Protocol Stop: 07/31/22 12:00 Furosemide (Furosemide 40 Mg/4 Ml Vial) 40 mg IV BID TOI Stop: 07/31/22 20:59 Last Admin: 07/04/22 09:57 Dose: 40 mg Glucagon (Glucagon For Inj 1 Mg Vial) 1 mg SQ UD PRN; Protocol PRN Reason: Hypoglycemia Protocol Stop: 07/31/22 12:00 Glucose (Glucose 40% Gel 15 Gm Tube) 15 - 30 gm PO UD PRN; Protocol PRN Reason: Hypoglycemia Protocol Stop: 07/31/22 12:00 Glucose (Glucose 10 Tab/Tube) 4 - 8 tab PO UD PRN; Protocol PRN Reason: Hypoglycemia Treatment Stop: 07/31/22 12:00 Insulin Aspart (Insulin Aspart Per Unit) 0 units SC ACHS TOI Stop: 07/31/22 12:00 Last Admin: 07/04/22 12:19 Dose: Not Given Insulin Glargine (Lantus Per Unit Charge) 5 units SQ BID TOI Stop: 07/31/22 20:59 Last Admin: 07/04/22 09:48 Dose: 5 units Metoprolol Succinate (Metoprolol Succ 50mg Ext Rel Tab) 50 mg PO BID TOI Stop: 07/31/22 20:59 Last Admin: 07/04/22 09:56 Dose: 50 mg Metoprolol Succinate (Metoprolol Succ 50mg Ext Rel Tab) 100 mg PO BID TOI Stop: 07/31/22 20:59 Last Admin: 07/04/22 09:57 Dose: 100 mg Miscellaneous (Carbohydrates For Hypoglycemia ) 15 - 30 gm PO UD PRN PRN Reason: Hypoglycemia Protocol Stop: 07/31/22 12:00 Sacubitril/Valsartan (Valsartan/Sacubitril 26/24mg Tab) 1 tab PO BID TIO Stop: 07/31/22 20:59 Last Admin: 07/04/22 09:56 Dose: 1 tab Umeclidinium/Vilanterol (Umeclidinium/Vilanterol 62.5/25mcg 7 Puffs/Inhaler) 1 puffs INH DAILY TOI Stop: 08/01/22 08:59 Last Admin: 07/04/22 09:55 Dose: 1 puffs PG Care Time/CCT Total # of Minutes Spent Total Time Spent with Patient: Total time spent is greater than 50% in coordination of care (as documented) at patient's floor/unit and/or counseling patient: Coding Level of Care Code 48583 Subseq Hosp Care Lvl 3 Diagnoses Heart failure with mid-range ejection fraction I50.22 Cardiomyopathy I42.9 Persistent atrial fibrillation I48.19 Anticoagulant long-term use Z79.01 Tobacco abuse disorder Z72.0
--- NOTE | 2022-07-11 13:35 | Discharge Summary ---
Date of Service July 04, 2022 Admission HPI Per Admitting Provider 42-year-old male past medical history significant for atrial fibrillation, tobacco use disorder, type 2 diabetes, sleep apnea, morbid obesity, heart failure with mid-range ejection fraction, morbid obesity presented for worsening shortness of breath this morning. He was discharged from [facility] on 06/28 for new onset CHF with exacerbation and AFib RVR, and on discharge his metoprolol was increased and he was started on Lasix 40mg PO daily for EF ~40-50%. He was doing well and reports that he was taking his medications as prescribed. Early this morning, he started to have shortness of breath that was worse with exertion and with lying flat. He reported to the ER was noted to be mildly tachycardic to the 90s, afebrile, saturating normally on room air. He reports that the shortness of breath comes in waves, lasts for a few seconds, and then goes away. Lab work revealed BNP of 466, dimer of 1090. Chest x-ray showed cardiomegaly with pulmonary vascular congestion. He was given 40 mg Lasix IV x1 and hospitalist service was consulted for admission. When asked to describe the last several days with regard to his oral intake, he reports that on 06/29 he ate buttered noodles for 1 meal, and a sandwich for another meal. On 06/30 he had a "few ham sandwiches" for lunch, and a few slices of pizza for dinner. He denies using the saltshaker. He denies any chest pain this admission, and no palpitations. Does not report feeling lightheaded or dizzy. No abdominal pain, nausea, vomiting. He did not use his nebulizer this morning to see if that would change his shortness of breath. Principal Diagnosis heart failure with mid range ejection fraction Discharge Exam Constitutional WD/WN, vitals as above Eyes PERRL, conjunctivae normal, anicteric sclerae + anicteric sclerae ENMT external ear and nose normal, oropharynx normal Neck trachea midline, no thyromegaly Respiratory Auscultation: + diminished lung sounds (throughout due to body habitus); no crackles and no wheezes Cardiovascular RRR, no murmur, no edema Rate/Rhythm: regular rate and + irregularly irregular Heart Sounds: no murmur Extremities: + edema (trace pitting edema feet and legs bilat) Gastrointestinal (Abdomen) normal bowel sounds, soft, nontender, no hepatosplenomegaly (obese abdomen) Musculoskeletal Extremities: extremities normal to inspection; no cyanosis and no clubbing Skin no rashes, warm and dry Neurologic moves all extremities and awake; no focal motor deficits Psychiatric A+Ox3, euthymic affect Lymphatic no lymphedema Discharge Data Allergies Allergy/AdvReac Type Severity Reaction Status Date / Time No Known Allergies Allergy Verified 07/10/22 11:04 Consultations 07/01/22 09:18 ED Decision to Admit Stat 07/01/22 09:47 Consult Cardiology Routine 07/01/22 15:36 [facility] [place] Referral Routine Hospital Course (1) Heart failure with mid-range ejection fraction: Presents with worsening SOB on admission after recent discharge for CHF hospitalization Reports medication adherence to his Lasix 40 mg daily at home since discharge on 06/28. Patient does continue to have dietary indiscretion, though improved over the last several days compared to diet on last admission (ex: 06/28 had buttered noodles for dinner, 06/29 had two ham sandwiches for lunch and pizza for dinner). LVEF 06/26/2022 of 40-50%, though technically difficult study and was done while patient was in A. fib with RVR. ER bed scale reported weight of 253.4 kg, this is up from 246.8 kg on discharge 06/28, suggesting fluid overload. On repeat evaluation patient is not tachycardic nor tachypneic, saturating well on room air. While PE cannot be definitively ruled out given cannot perform CT PE protocol, this is less likely than CHF as cause given increase in weight over the last several days. Patient had bilateral lower extremity ultrasound 3 days ago without evidence of DVT. BNP elevated on arrival, CXR with pulm vascular congestion and cardiomegaly Weight down since admission -improving clinically with IV diuresis-continue lasix 40mg IV bid -likely had gut wall edema preventing absorption of po lasix at home-may do better with torsemide, but also may do better after IV diuresis -will discharge on PO lasix 40 mg PO BID -continue Daily standing weights and strict intake/output, low sodium diet, fluid restrict -Low-dose Entresto twice daily initiated here--> cost check is $0 co-pay -discharge metoprolol succinate 200 mg twice daily -Cardiology consulted and appreciate recommendations. -CHF program consulted. (2) Cardiomyopathy: LVEF as described above and echo on 06/26. While patient does have risk factors for CAD, it is likely that there was some tachycardia induced cardiomyopathy on that echo. Repeat echo in the future per discretion of outpatient cardiology. (3) Afib: History of A. fib, with last admission 1 week ago for A. fib with RVR and isidro dence of acute CHF. Patient is not in RVR at this time, with heart rate in the 80-90s. Continue metoprolol succinate 150 mg twice daily, and can titrate up to 200 mg twice daily if necessary. As patient is unlikely to be compliant with reinstituting warfarin, will continue Eliquis 5 mg twice daily. Drug trough concentration is pending from last admission. (4) Anticoagulant long-term use: Patient has been prescribed anticoagulants for a long time, however on last admit he reported that he had not been taking his warfarin for about a month. He was started on Eliquis after discussion with Dr. Muniz about options for anticoagulation for A. fib given his refusal to take warfarin or Xarelto (due to previous side effects). (5) Type II diabetes mellitus: A1c 6.8% on 06/27. Basal/bolus insulin while admitted with transition back to home regimen on discharge. (6) Tobacco abuse disorder: Offered nicotine patch, declined. Recommend smoking cessation. Continue Anoro Ellipta. Home albuterol nebs every 6 hours as needed for wheezing. Plan Full code Eliquis for DVT prophylaxis Dispo-continued Telemetry status Total Time Total Time Spent Total Time Spent (In Minutes): 35 Discharge Plan Discharge Items Patient Disposition: Home - Self-Care Reason For Visit: CHF EXACERBATION Discharge Diagnosis: CHF exacerbation Activity: Resume your previous activity Non-emergency contact: Primary Care Provider Call non-emergency contact if: you have any medication questions Follow-up/Referrals: Anita Rose PA-C [Physician Railroad Inspector] - 07/09/22 10:00 am Meredith Toro PA-C [Physician Railroad Inspector] - 07/10/22 10:30 am (Congestive Heart Failure Program Appointment Information Early follow up is essential to managing your heart failure. An appointment has been scheduled for you with the [facility] Heart Failure Program within 7 days of discharge. Anticipate this visit to be 30-60 minutes long. Please expect a hire car driver phone call from one of our nurses approximately 48 hours from discharge. They will also be placing an order for lab work to be completed 1-2 days prior to your heart failure follow up appointment. Please be sure to have this done so we can go over the results when you come in. Office Location The cardiology office building is located in front of the hospital at [address] [facility]. Bring the following with you to your follow-up doctor appointments: Please bring your daily weight log any discharge paperwork all of your medication bottles with you to this visit. ) Diet: Low Sodium (2gm) Addtl Attending Provider Instructions: Recommend followup with CHF clinic 1 week and PCP in 2 weeks check potassium in 1 week. Addtl Maintenance Shop Manager Provider Instructions: Call your Primary Care doctor if any of the following symptoms or problems start or get worse: * Shortness of breath or difficulty breathing * Wake up at night short of breath * Chest pain * Cough * Swelling of your hands, feet, or legs * More fatigued or tired with your normal activity * Palpitations - sudden fast heart beats WEIGHT * Weigh yourself every morning after using the bathroom. * Use the same scale. * Wear the same amount of clothing. * Write your weight down on a chart. * Call your Primary Care doctor if you gain more than 2-3 pounds in 1-2 days. MEDICATIONS * Use this discharge instruction sheet for medication instructions. * Take your medications at the time your doctor ordered. * Do not skip a dose of your medicines. * If you miss a dose of medicine, take it as soon as possible, but DO NOT DOUBLE A DOSE. * Read your medicine information when you get home. * Know all of the side effects of your medicine. If in doubt, ask your pharmacist * Call your Primary Care doctor's office if you have any side effects. * Be sure all of your doctors know what medicine and herbs you take (including cold, flu, and herbal medicine). Take the following with you to your follow-up doctor appointments: * Weight Chart * Medication List * List of questions Do not drink excessive alcohol, beer or wine. Pending Studies at Discharge: No Stand-Alone Forms: My [employer], Smoking Cessation Medications and DC Order Prescriptions: New metoprolol succinate 200 mg tablet extended release 24 hr 200 mg PO BID Qty: 60 0RF Entresto 24-26 mg Tablet 1 tab PO BID Qty: 60 0RF potassium chloride 20 mEq tablet extended release 20 meq PO DAILY Qty: 30 0RF Continued metformin 500 mg tablet 500 mg PO BID Qty: 60 5RF albuterol sulfate [Ventolin HFA] 90 mcg/actuation HFA aerosol inhaler 1 puff INH Q6H PRN (Reason: shortness of breath or wheezing) Qty: 18 5RF ofloxacin 0.3 % drops 10 drp otic (ear) BID Qty: 5 0RF albuterol sulfate 2.5 mg /3 mL (0.083 %) solution for nebulization 2.5 mg inhalation .Q4-6H PRN (Reason: Shortness Of Breath) Rx Instructions: 2.5 mg inhalation EVERY 4 TO 6 HOURS NEEDED; (DME) blood-glucose meter [OneTouch Verio Meter] Misc See Rx Instructions .Route Qty: 1 0RF Rx Instructions: check BSG 1x daily (DME) OneTouch Verio test strips Strip See Rx Instructions .Route Qty: 100 0RF Rx Instructions: As directed (DME) lancets [OneTouch Delica Lancets] 33 gauge misc See Rx Instructions .Route Qty: 100 0RF Rx Instructions: As directed Anoro Ellipta 62.5-25 mcg/actuation Blister With Device 1 ea inhalation DAILY Qty: 60 0RF Eliquis 5 mg Tablet 5 mg PO BID Qty: 60 0RF Changed furosemide 40 mg tablet 40 mg PO BID Qty: 60 0RF Discontinued metoprolol succinate 100 mg tablet extended release 24 hr 100 mg PO BID Qty: 60 0RF Rx Instructions: Take with 50mg tablet. metoprolol succinate 50 mg tablet extended release 24 hr 50 mg PO BID Qty: 60 0RF Rx Instructions: Take with 100mg tablet Discharge Orders: Discharge Order (Routine); Ordered 07/04/22 Ordered By: Matthew Escamilla/Other Patient Handouts: High Blood Sugar (Hyperglycemia), Hypoglycemia (Low Blood Sugar), Managing Type 2 Diabetes Admission Data Admit Date/Time: 07/03/22 14:51 Attending Provider: Matthew Santiago Admit Provider: Inna Crawford Primary Care Provider: Jamarcus Cramre Other Providers: Jose Alberto Fink ; Inna Crawford ; Meredith Toro Other Interventions: Discharge Summary Assessment (RN) Last Done: 07/04/22 15:00 Coding Level of Care Code D/C DAY MANAGEMENT >30 MINS Diagnoses Heart failure with mid-range ejection fraction I50.22 Cardiomyopathy I42.9 Afib I48.91 Anticoagulant long-term use Z79.01 Type II diabetes mellitus E11.9 Tobacco abuse disorder Z72.0
== END 2022-07-04 15:57 | disposition home or self-care (01) | DRG 292 ==
LOC: ED 07:43 → 4W 07:43 → SUATTDRO 09:47 → 4W 11:15
DX: E88.81 Metabolic syndrome and other insulin resistance; Z91.14 Patient's other noncompliance with medication regimen; I48.19 Other persistent atrial fibrillation; Z79.84 Long term (current) use of oral hypoglycemic drugs; F17.210 Nicotine dependence, cigarettes, uncomplicated; I42.9 Cardiomyopathy, unspecified; E11.9 Type 2 diabetes mellitus without complications; Z68.45 Body mass index [BMI] 70 or greater, adult; E66.01 Morbid (severe) obesity due to excess calories; Z79.01 Long term (current) use of anticoagulants; I50.23 Acute on chronic systolic (congestive) heart failure